=== PATIENT | female | born 1985 | race Caucasian/White ===

== ENCOUNTER 2022-10-19 02:33 | Emergency (ER) | payer MEDICAID, SELFPAY ==
[2022-10-19 02:33] VITALS: BP 113/77; PULSE 109; RESP 18; TEMP 35.6; O2SAT 100; BMI 24.3
--- NOTE | 2022-10-19 04:06 | EDS_ITS ---
HPI History of Present Illness Chief Complaint: Back Informant: patient Narrative Narrative: Patient is a 37-year-old female with history of anxiety and bipolar disorder presenting with concern of kidney infection. Patient states she has had some back pain for the past 3 days that radiates to her bilateral anterior legs. She has had an odor associated with urination. She denies any urgency, frequency or dysuria. Denies any abnormal vaginal bleeding or vaginal discharge. She also has some suprapubic lower abdominal pain. She states she had to walk here tonight and while walking her she had an episode of urinary incontinence. She denies any saddle anesthesia. She has a history of cancer, blood thinner use or history of IV drug use. Denies any fever or chills. No other complaints at this time. She states she has had bladder infections in the past but none was such associated back pain. [facility] Medical History Anxiety Bipolar disorder Depression Sleep paralysis Home Medications Abilify 10/19/22 [History Last Taken Unknown] BuSpar 10/19/22 [History Last Taken Unknown] cephalexin 500 mg capsule 500 mg PO Q6 #40 CAPSULES 10/19/22 [Rx Last Taken Unknown] phenazopyridine 200 mg tablet (Pyridium) 200 mg PO TID PRN pain 6 doses #6 tabs 10/19/22 [Rx Last Taken Unknown] trazodone 10/19/22 [History Last Taken Unknown] Allergy/AdvReac Type Severity Reaction Status Date / Time ketorolac [From Toradol] Allergy Anaphylaxis Verified 10/19/22 02:38 naproxen Allergy Anaphylaxis Verified 10/19/22 02:38 Social History Smoking Status: Current every day smoker tobacco type: cigarettes ROS ROS ED Constitutional Constitutional ED: Denies chills or fever(s) ENT ENT ED: Denies sore throat Cardiovascular Cardiovascular: Denies chest pain Respiratory/Chest Respiratory/Chest: Denies dyspnea Gastrointestinal Gastrointestinal: Reports abdominal pain and nausea; Denies constipation, diarrhea or vomiting Genitourinary Genitourinary ED: Reports other Details: Urinary incontinence x1 ; Denies dysuria, hematuria or urinary frequency Musculoskeletal Musculoskeletal: Reports back pain; Denies arthralgias or myalgias Integumentary Denies rash Neurologic Neurologic: Denies headache(s), paresthesias or weakness Psychiatric Psychiatric: Denies anxiety Hematologic/Lymphatic Hematologic/Lymphatic: Denies easy bleeding or easy bruising EXAM Physical Exam Const Vital Signs: 10/19/22 02:33 10/19/22 05:40 Temperature 96.1 F L Temperature Source Oral Pulse Rate 109 H 81 Respiratory Rate 18 14 Blood Pressure 113/77 Blood Pressure Mean 89 Pulse Ox 100 96 Oxygen Delivery Method Room Air Positive well nourished and well developed General Appearance ED: well developed and NAD HEENT Reports moist mucous membranes Eyes PERRL and EOMs intact bilaterally Neck supple Resp normal respiratory effort and clear to auscultation bilaterally Cardio regular rate, regular rhythm and no murmurs GI normal to inspection, nondistended, normoactive bowel sounds Palpation: tender suprapubic; Negative for guarding Back/Spine normal to inspection Back/Spine Narrative: Patient does not have midline tenderness. She has pretty diffuse lumbar and thoracic tenderness to palpation General Back: CVA tenderness bilateral Cervical Spine: Negative for cervical spine tenderness Thoracic Spine / Upper Back: paraspinal muscle tenderness Lumbar Spine / Lower Back: ROM limited and straight leg raise negative bilaterally Extremity normal to inspection General Extremety ED: Negative for edema General Extremity: Negative for edema Neuro oriented x3 and no sensory deficits noted Sensorium / Orientation: alert Motor Exam: strength 5/5 throughout Skin no rashes or lesions noted MDM MDM MDM Narrative Medical decision making narrative: Patient is evaluated for 3 days of urinary symptoms. She had episode of urinary incontinence tonight. Patient smells of foul urine. While she has back pain she does not have midline back pain, fever, saddle anesthesia or other findings concerning for cauda equina syndrome. She denies any history of IV drug use, cancer or coagulopathy. I suspect patient has UTI possibly developing pyelonephritis. Her vital signs are significant for mild tachycardia upon arrival however she is afebrile tachycardia improves with Tylenol in the ER. Urinalysis is highly consistent with urinary tract infection with positive nitrites, greater than 100 white blood cells and 3+ bacteria with no squamous epithelial cells. Culture sent. Given her associated back pain patient will be covered for pyelonephritis. Since she is not having systemic symptoms such as fever, nausea or vomiting I do not think she requires IV medications at this time and will be trialed on outpatient therapy. She is given first dose of Keflex in the ER and is also given a prescription of Pyridium for her urinary symptoms. Is counseled return precautions. Encouraged to take Tylenol as needed for pain. Discharged home in stable condition. Patient does not have any prior urine cultures to review as far as antibiotic sensitivity. Lab Data Attestation: I reviewed the patient's lab results. Labs: Laboratory Results - last 24 hr 10/19/22 04:25 Urine Color Yellow Urine Clarity Cloudy Urine pH 7.0 Ur Specific [place] 1.010 Urine Protein 30 H Urine Glucose (UA) Normal Urine Ketones Negative Urine Occult Blood 25 H Urine Nitrite Positive H Urine Bilirubin Negative Urine Urobilinogen 1 H Ur Leukocyte Esterase 500 H Urine RBC 0-5 SEEN Urine WBC >100 SEEN Ur Squamous Epith Cells 0 SEEN Amorphous Sediment 3+ Urine Bacteria 4+ Urine Mucus 0 SEEN Urine Test Negative Discharge Plan Triage Chief Complaint: Back ED Provider: Kizzy Grady Dx/Rx/DC Orders Clinical Impression: UTI (urinary tract infection), Low back pain Instructions: ED Pyelonephritis, Female (Adult), ED Cystitis Female Adult Prescriptions: New cephalexin 500 mg capsule 500 mg PO Q6 Qty: 40 0RF phenazopyridine [Pyridium] 200 mg tablet 200 mg PO TID PRN (Reason: pain) Qty: 6 0RF No Action Fausto carbajalzosumite Primary Care Provider: Madeleine Mohamud NP Referrals: Madeleine Mohamud NP, [employer] [Primary Care Provider] - Activity Restrictions/Additional Instructions: You have a UTI with possible early kidney infection. It is very important that you drink lots of fluids and take your entire course of antibiotics. Return to the ER if you develop progression of symptoms, nausea, fever especially after 2 days of antibiotics. You have been prescribed a medicine that will help with the urinary symptoms. You may also take Tylenol as needed for pain. Disposition Disposition: Home, Self Care Discharge Date/Time: 10/19/22 05:41
[2022-10-19 04:32] LABS: Mucous, Urine 0 SEEN /hpf (<or=2+); Squamous Epithelial Cells - UA 0 SEEN /hpf (5-10)
[2022-10-19 04:38] LABS: Color, Urine Yellow (Yellow); Glucose, Dipstick Normal (Normal); Ketone-Dipstick Negative (Negative); Leukocyte Esterase-Dipstick 500 /ul (Negative); Nitrite-Dipstick Positive (Negative); Occult Blood-Urine 25 /ul (Negative); Protein-Dipstick 30 mg/dl (Negative); Urine Bilirubin Dipstick Negative (Negative); Urine Clarity Cloudy (Clear); Urine Urobilinogen 1 mg/dl (Normal)
[2022-10-19 04:39] LABS: Internal QC Validated? YES +Cl - CLEAR BKGD; Pregnancy, Urine Negative Negative
[2022-10-19 04:43] LABS: Amorphous Sediment 3+; Bacteria 4+ /hpf (None Seen); Red Blood Cells-Urine 0-5 SEEN /hpf (0-5); White Blood Cells >100 SEEN /hpf (0-5)
[2022-10-19] MEDS: Acetaminophen 325 MG Tablet 650 MG PO (05:02)
[2022-10-19] MEDS: Cephalexin 250 MG Capsule 500 MG PO (05:32)
[2022-10-19] MEDS: Phenazopyridine 95 MG Tablet 190 MG PO (05:32)
[2022-10-19 05:40] VITALS: PULSE 81; RESP 14; O2SAT 96
== END 2022-10-19 05:41 | disposition home or self-care (01) ==
PROVIDERS: Emergency Provider Emergency Medicine; PCP Nurse Practitioner Family; Visit Provider Emergency Medicine
DX: N39.0 Urinary tract infection, site not specified (principal); F31.9 Bipolar disorder, unspecified; M54.50 Low back pain, unspecified; F41.9 Anxiety disorder, unspecified; R32 Unspecified urinary incontinence; F17.210 Nicotine dependence, cigarettes, uncomplicated; Z79.899 Other long term (current) drug therapy
CPT/HCPCS: 81001; 81025; 87086; 87088; 99284

== ENCOUNTER 2023-06-20 20:37 | Emergency (ER) | payer MEDICAID, SELFPAY ==
[2023-06-20 20:37] VITALS: BP 168/79; PULSE 74; RESP 16; TEMP 36.2; O2SAT 98; BMI 25.4
[2023-06-20] MEDS: 0.9% Normal Saline (1000mL) 1,000 ML 999 ML IV (22:17)
[2023-06-20] MEDS: Morphine 4 MG/ML Syringe IV (22:17)
[2023-06-20] MEDS: Ondansetron 4 MG/2 ML Vial IV (22:17)
[2023-06-20 22:18] LABS: Absolute Lymphocyte Count 1.92 X10^3/uL (0.83-4.51); Absolute Neutrophil Count 9.4 X10^3/uL (2.0-7.7); Basophil# 0.04 X10^3/uL; Basophil% 0.3 % (0-1); Eosinophil# 0.06 X10^3/uL; Eosinophils% 0.5 % (0-5); Hematocrit 43.7 % (37-47); Hemoglobin 14.5 g/dL (12.0-15.0); Lymphocyte # 1.92 X10^3/ul (0.83-4.51); Lymphocyte % 15.1 % (19-41); Mean Corp Hgb Conc 33.2 g/dL (32-36); Mean Corpuscular Hgb 33.4 pg (27.0-32.0); Mean Corpuscular Volume 100.7 fL (81-99); Mean Platelet Vol. 9.5 fl (6.2-12.0); Monocyte# 1.15 X10^3/uL; Monocyte% 9.1 % (0-10); NRBC Flagged by Analyzer 0 % (0-5); Neutrophil # 9.44 X10^3/uL (2.7-7.7); Neutrophil % 74.3 % (47-70); Platelet Count 414 K/mm3 (150-450); RBC Distribution Width CV 11.9 % (11.6-14.6); Red Blood Count 4.34 M/mm3 (4.2-5.4); White Blood Count 12.7 K/mm3 (4.4-11.0)
[2023-06-20 22:32] LABS: Prothrombin Time (Protime)PT. 13.4 SECONDS (11.7-14.9)
[2023-06-20 22:37] VITALS: BP 100/68; PULSE 74; RESP 16; O2SAT 97
[2023-06-20 22:38] LABS: AST(SGOT) 15 U/L (15-37); Alanine Aminotransfer ALT/SGPT 31 U/L (13-56); Albumin, Serum 3.7 g/dL (3.2-5.0); Alkaline Phosphatase 108 U/L (45-117); Anion Gap 4 (5-15); BUN 12 mg/dL (7-18); Bilirubin, Direct 0.13 mg/dL (0.00-0.30); Calcium,Total 8.7 mg/dL (8.5-10.1); Chloride 104 mmol/L (98-107); EST Glomerular Filtration Rate 86 mL/min (>60); Est Glom Filt Rate - Afr Amer 104 mL/min (>60); Estimated Creatinine Clearance 83.14 ml/min; Globulin 4.5 g/dL (2.2-4.2); Glucose 90 mg/dL (74-106); Lipase 35 U/L (13-75); Potassium 3.9 mmol/L (3.5-5.1); Protein, Total 8.2 g/dL (6.4-8.2); Sodium Level 137 mmol/L (136-145)
[2023-06-20 22:39] LABS: Partial Thromboplast Time 28.9 Seconds (24.1-36.2)
[2023-06-20 22:43] LABS: Mucous, Urine 0 SEEN /hpf (<or=2+)
[2023-06-20 23:08] LABS: Glucose, Dipstick Normal (Normal); Ketone-Dipstick Negative (Negative); Leukocyte Esterase-Dipstick 500 /ul (Negative); Nitrite-Dipstick Negative (Negative); Occult Blood-Urine 250 /ul (Negative); Protein-Dipstick 30 mg/dl (Negative); Specific Gravity, Urine 1.005 (1.002-1.030); Urine Bilirubin Dipstick Negative (Negative); Urine Clarity Sl. Cloudy (Clear); Urine Urobilinogen Normal (Normal)
[2023-06-20 23:17] LABS: Color, Urine SEE COMMENT BELOW (Yellow)
[2023-06-20 23:20] LABS: Bacteria 1+ /hpf (None Seen); Red Blood Cells-Urine 25-50 SEEN /hpf (0-5); Squamous Epithelial Cells - UA 0-5 SEEN /hpf (5-10); White Blood Cells 25-50 SEEN /hpf (0-5)
[2023-06-20 23:21] LABS: Internal QC Validated? YES +Cl - CLEAR BKGD; Pregnancy, Urine Negative Negative; Record Kit Lot#,Urine Preg HCG0000667200
[2023-06-21 00:29] VITALS: BP 100/70; PULSE 74; RESP 16; O2SAT 99
[2023-06-21] MEDS: Ondansetron 4 MG/2 ML Vial IV (00:30)
[2023-06-21] MEDS: fentaNYL 100 MCG/2 ML Ampul 50 MCG IV (00:30)
[2023-06-21] MEDS: Ceftriaxone 1 GM/50 ML BAG IV (00:48)
[2023-06-21] MEDS: 0.9% Normal Saline (1000mL) 1,000 ML 999 ML IV (00:52)
--- NOTE | 2023-06-21 00:59 | EDS_ITS ---
HPI History of Present Illness Chief Complaint: Abd Pain Informant: patient Narrative Narrative: Patient is a 38-year-old female who states she developed abdominal pain yesterday which is greatest around the left flank and left lower quadrant. She states that there has been no fevers or chills and she denies any vomiting but does report mild nausea. She states that she took Pepto-Bismol secondary to the symptoms and today had black/discolored stool which concerned her and therefore comes in for evaluation [facility] Medical History Anxiety Bipolar disorder Depression Sleep paralysis Home Medications Abilify 10/19/22 [History Last Taken Unknown] BuSpar 10/19/22 [History Last Taken Unknown] cephalexin 500 mg capsule 500 mg PO Q6 #40 CAPSULES 10/19/22 [Rx Last Taken Unknown] phenazopyridine 200 mg tablet (Pyridium) 200 mg PO TID PRN pain 6 doses #6 tabs 10/19/22 [Rx Last Taken Unknown] trazodone 10/19/22 [History Last Taken Unknown] oxycodone-acetaminophen 5 mg-325 mg tablet (Percocet) 1 tab PO Q6H PRN pain 3 days #12 tabs 06/21/23 [Rx Last Taken Unknown] sulfamethoxazole 800 mg-trimethoprim 160 mg tablet (Bactrim DS) 1 tab PO BID 10 days #20 tabs 06/21/23 [Rx Last Taken Unknown] Allergy/AdvReac Type Severity Reaction Status Date / Time ketorolac [From Toradol] Allergy Anaphylaxis Verified 06/20/23 20:39 naproxen Allergy Anaphylaxis Verified 06/20/23 20:39 Social History Smoking Status: Current every day smoker tobacco type: cigarettes ROS ROS ED Constitutional Constitutional ED: Denies chills or fever(s) ENT ENT ED: Denies sore throat Cardiovascular Cardiovascular: Denies chest pain Respiratory/Chest Respiratory/Chest: Denies cough or dyspnea Gastrointestinal Gastrointestinal: Reports abdominal pain and nausea; Denies diarrhea or vomiting Genitourinary Genitourinary ED: Denies dysuria Musculoskeletal Musculoskeletal: Reports back pain; Denies myalgias Integumentary Denies rash Neurologic Neurologic: Denies headache(s) Hematologic/Lymphatic Hematologic/Lymphatic: Denies easy bleeding or easy bruising EXAM Physical Exam Const Vital Signs: 06/20/23 20:37 06/20/23 22:37 06/21/23 00:29 Temperature 97.2 F L Temperature Source Temporal Pulse Rate 74 74 74 Respiratory Rate 16 16 16 Blood Pressure 168/79 H 100/68 100/70 Blood Pressure Mean 108 78 80 Pulse Ox 98 97 99 Oxygen Delivery Method Room Air Room Air Room Air 06/21/23 01:43 Temperature Temperature Source Pulse Rate 77 Respiratory Rate 14 Blood Pressure 98/75 Blood Pressure Mean Pulse Ox 100 Oxygen Delivery Method Positive well nourished and well developed General Appearance ED: well developed HEENT Reports moist mucous membranes HEENT Narrative: No signs of infection noted in the posterior pharynx No airway edema or compromise Eyes PERRL and EOMs intact bilaterally General Eye ED: Negative for scleral icterus Neck supple Resp normal respiratory effort and clear to auscultation bilaterally Cardio regular rate and regular rhythm Rate: other Other Details: Radial and carotid pulses are equal and symmetric GI non-distended GI Narrative: Abdomen is soft and nondistended with normal active bowel sounds. Patient has pain with palpation diffusely but greatest in the left lower quadrant without voluntary guarding or rigidity. No pulsatile mass Auscultation: normoactive bowel sounds Palpation: soft Back/Spine Back/Spine Narrative: Positive left CVA pain noted Extremity normal to inspection Neuro oriented x3, CN's II-XII intact bilaterally and no sensory deficits noted Sensorium / Orientation: alert Motor Exam: strength 5/5 throughout Psych mental status grossly normal Skin no rashes or lesions noted General Skin Exam: Negative for jaundice MDM MDM MDM Narrative Medical decision making narrative: Patient presented to the ER afebrile with a soft nonsurgical abdomen. She reported pain in the left lower quadrant and left flank and differential diagnosis is for kidney stone versus pyelonephritis versus diverticulitis versus colitis versus ovarian cyst. Basic labs were obtained and show leukocytosis of 12.7 but otherwise no clinically significant finding. Urine sample showed signs of infection and blood in with potential for kidney stone a CT was obtained. CT revealed no acute stone or signs of intestinal infection but did document a 3 cm ovarian cyst. This correlates with the location of her left lower quadrant abdominal pain. At this time she is not showing changes concerning for urosepsis or acute kidney injury and therefore she can be placed on antibiotics regarding the urinary tract infection and as her pain is controlled she is otherwise safe for discharge History & Record Review Discussion w/independent historian: Patient Lab Data Attestation: I reviewed the patient's lab results. Labs: Laboratory Results - last 24 hr 06/20/23 06/20/23 22:10 22:30 WBC 12.7 H RBC 4.34 Hgb 14.5 Hct 43.7 MCV 100.7 H MCH 33.4 H MCHC 33.2 RDW Std Deviation 44.0 H RDW Coeff of Pooanm 11.9 Plt Count 414 MPV 9.5 Immature Gran % (Auto) 0.700 Neut % (Auto) 74.3 H Lymph % (Auto) 15.[address] [place] % (Auto) 9.1 Eos % (Auto) 0.5 Baso % (Auto) 0.3 Absolute Neuts (auto) 9.4 H Absolute Lymphs (auto) 1.92 Nucleated RBC % 0 PT 13.4 INR 1.0 APTT 28.9 Sodium 137 Potassium 3.9 Chloride 104 Carbon Dioxide 29.0 Anion Gap 4 L BUN 12 Creatinine 0.80 Estim Creat Clear Calc 83.14 Est GFR (MDRD) Af Amer 104 Est GFR (MDRD) Non-Af 86 BUN/Creatinine Ratio 15.0 Glucose 90 Calcium 8.7 Total Bilirubin 0.20 Direct Bilirubin 0.13 AST 15 ALT 31 Alkaline Phosphatase 108 Total Protein 8.2 Albumin 3.7 Globulin 4.5 H Lipase 35 Urine Color SEE COMMENT BELOW Urine Clarity Sl. Cloudy Urine pH 7.0 Ur Specific [place] 1.005 Urine Protein 30 H Urine Glucose (UA) Normal Urine Ketones Negative Urine Occult Blood 250 H Urine Nitrite Negative Urine Bilirubin Negative Urine Urobilinogen Normal Ur Leukocyte Esterase 500 H Urine RBC 25-50 SEEN Urine WBC 25-50 SEEN Ur Squamous Epith Cells 0-5 SEEN Urine Bacteria 1+ Urine Mucus 0 SEEN Urine Test Negative Radiography Diagnostic Testing: Clinical Impression(s) from Imaging Studies Abdomen/Pelvis CT 06/21/23 23:36 IMPRESSION: Small 3 cm left adnexal cyst with no significant free pelvic fluid. Consider follow-up pelvic ultrasound in 6 or 10 weeks to reassess. Electronically Signed: Jacques Vaughan MD at 0:43 EDT , Discharge Plan Triage Chief Complaint: Abd Pain ED Provider: Maurice Leon Dx/Rx/DC Orders Clinical Impression: Pyelonephritis, Cyst of left ovary Instructions: Ovarian Cysts, ED Pyelonephritis, Female (Adult) Prescriptions: New sulfamethoxazole-trimethoprim [Bactrim DS] 800-160 mg tablet 1 tab PO BID 10 Days Qty: 20 0RF oxycodone-acetaminophen [Percocet] 5-325 mg tablet 1 tab PO Q6H PRN (Reason: pain) 3 Days Qty: 12 0RF No Action Abilify BuSpar trazodone cephalexin 500 mg capsule 500 mg PO Q6 Qty: 40 0RF phenazopyridine [Pyridium] 200 mg tablet 200 mg PO TID PRN (Reason: pain) Qty: 6 0RF Primary Care Provider: Care Physician,No Primary Referrals: Luz Elena Landaverde MD [Med Staff - Active Staff] - Care Physician,No Primary [Primary Care Provider] - Activity Restrictions/Additional Instructions: Please take your medication as directed to help resolve your UTI/kidney infection. Because of your left ovarian cyst follow-up with [employer] to discuss repeat evaluation and return to the ER should you have any further concerns or worsening of symptoms Disposition Disposition: Home, Self Care Discharge Date/Time: 06/21/23 01:47
[2023-06-21 01:43] VITALS: BP 98/75; PULSE 77; RESP 14; O2SAT 100
--- NOTE | 2023-06-21 23:36 | CT_ITS ---
INDICATION: Abdominal pain, back pain, UTI, black stools today EXAMINATION: CT Abdomen And Pelvis W/ Contrast Injection TECHNIQUE: Helically acquired images were obtained of the abdomen and pelvis following IV contrast. 2-D reconstructions reviewed. A radiation dose optimization technique was used for this scan. IV Contrast dosage and agent: 100 cc [id number] Oral contrast: None. COMPARISON: None. FINDINGS: LOWER CHEST: No acute findings within the imaged lung bases. Heart size within normal limits. LIVER: Mild focal fat within left lobe adjacent to falciform ligament. No concerning lesion. GALLBLADDER AND BILIARY TREE: Status post cholecystectomy. No significant biliary ductal dilation. PANCREAS: No discrete mass or peripancreatic edema. SPLEEN: Normal size without concerning lesion. ADRENAL GLANDS: Unremarkable. KIDNEYS AND URETERS: Normal renal size and position. No perinephric edema or hydronephrosis. No concerning lesion. Subcentimeter simple appearing cyst within lower pole of left kidney requiring no additional follow-up. PERITONEUM: No significant free fluid. No peritoneal free air detected. RETROPERITONEUM: No retroperitoneal mass or pathologic fluid collection. BOWEL: Status post appendectomy. No bowel obstruction or significant bowel thickening. No focal inflammatory change. LYMPH NODES: No enlarged mesenteric or retroperitoneal lymph nodes. VESSELS: No acute findings. No abdominal aortic aneurysm. URINARY BLADDER: Unremarkable as visualized. REPRODUCTIVE ORGANS: Thin-walled, low-attenuation 3 cm left adnexal cyst. ABDOMINAL WALL: No acute findings or significant hernia defect. BONES: Intact with no suspicious osseous lesion. CT/Abdomen/Pelvis W IV Cont ONLY IMPRESSION: Small 3 cm left adnexal cyst with no significant free pelvic fluid. Consider follow-up pelvic ultrasound in 6 or 10 weeks to reassess. Electronically Signed: Jacques Vaughan MD at 0:43 EDT ,
== END 2023-06-21 01:47 | disposition home or self-care (01) ==
PROVIDERS: Emergency Provider Emergency Medicine; Visit Provider Emergency Medicine
DX: N12 Tubulo-interstitial nephritis, not specified as acute or chronic (principal); F31.9 Bipolar disorder, unspecified; N83.202 Unspecified ovarian cyst, left side; F17.210 Nicotine dependence, cigarettes, uncomplicated; F41.9 Anxiety disorder, unspecified
CPT/HCPCS: 74177; 80048; 80076; 81001; 81025; 83690; 85025; 85610; 85730; 87086; 87088; 96361; 96365; 96375; 96376; 99285; Q9967; A4216; J2405

== ENCOUNTER 2023-06-26 02:25 | Emergency (ER) | payer MEDICAID, SELFPAY ==
[2023-06-26 02:31] VITALS: BP 115/86; PULSE 104; RESP 18; TEMP 36.6; O2SAT 99; BMI 25.9
--- NOTE | 2023-06-26 02:47 | RAD_ITS ---
INDICATION: Weakness, slight cough and dyspnea EXAMINATION/TECHNIQUE: X-RAY - XR Chest 2 Views COMPARISON: No relevant prior comparison study available FINDINGS: LINES/DEVICES: None. LUNGS: No consolidation, edema or effusion. No pneumothorax. MEDIASTINUM AND CARDIOVASCULAR STRUCTURES: Cardiac silhouette not enlarged. Central airways and mediastinal contour are unremarkable. BONES AND SOFT TISSUES: Unremarkable. RAD/Chest PA and Lateral IMPRESSION: No radiographic evidence of acute cardiopulmonary disease. Electronically Signed: Darren Wells MD at 3:19 EDT ,
[2023-06-26 02:59] LABS: Bacteria 0 SEEN /hpf (None Seen); Mucous, Urine 0 SEEN /hpf (<or=2+); Red Blood Cells-Urine 0 SEEN /hpf (0-5); Squamous Epithelial Cells - UA 0 SEEN /hpf (5-10); White Blood Cells 0 SEEN /hpf (0-5)
[2023-06-26] MEDS: 0.9% Normal Saline (1000mL) 1,000 ML 150 ML IV (03:06)
[2023-06-26 03:11] LABS: Absolute Lymphocyte Count 2.09 X10^3/uL (0.83-4.51); Basophil# 0.05 X10^3/uL; Basophil% 0.5 % (0-1); Eosinophil# 0.07 X10^3/uL; Eosinophils% 0.7 % (0-5); Hemoglobin 13.6 g/dL (12.0-15.0); Lymphocyte # 2.09 X10^3/ul (0.83-4.51); Lymphocyte % 19.9 % (19-41); Mean Corpuscular Hgb 33.2 pg (27.0-32.0); Mean Corpuscular Volume 97.6 fL (81-99); Mean Platelet Vol. 9.5 fl (6.2-12.0); Monocyte# 1.23 X10^3/uL; Monocyte% 11.7 % (0-10); NRBC Flagged by Analyzer 0 % (0-5); Neutrophil # 7.02 X10^3/uL (2.7-7.7); Neutrophil % 66.6 % (47-70); Platelet Count 406 K/mm3 (150-450); White Blood Count 10.5 K/mm3 (4.4-11.0)
[2023-06-26 03:22] LABS: Color, Urine Yellow (Yellow); Glucose, Dipstick Normal (Normal); Ketone-Dipstick 5 mg/dl (Negative); Leukocyte Esterase-Dipstick Negative /ul (Negative); Nitrite-Dipstick Negative (Negative); Occult Blood-Urine Negative /ul (Negative); Protein-Dipstick Negative (Negative); Urine Bilirubin Dipstick Negative (Negative); Urine Clarity Clear (Clear); Urine Urobilinogen Normal (Normal)
--- NOTE | 2023-06-26 03:54 | EX.ED.DYSGE1 ---
HPI History of Present Illness Chief Complaint: Abd Pain Detail of Chief Complaint: Lower quadrant/adnexal pain Informant: patient Onset/Context/Timing Onset: Today Context: Sudden Onset Timing: Continuous Quality: Pain Location: Left adnexal region Current Severity: Severe Maximum Severity: Severe Worsened by: Nothing Relieved by: Nothing Associated Symptoms Associated Symptoms: Nausea Narrative Narrative: Patient is a 38-year-old woman who was seen on June 21 for abdominal pain. Her work-up revealed a 3.0 cm left ovarian cyst. This was a simple cyst. She presents now because of increased pain. She states the pain never went away. She does report nausea without vomiting or diarrhea. She denies dysuria, frequency, urgency or hematuria. UA revealed pyuria and bacteriuria. Culture revealed a mixed specimen most likely contaminant. Since she has no symptoms. She denies flank pain. He has been 3 times. She has had no complications with those 3 pregnancies. There is no history of trauma. She denies fever or chills. She denies night sweats. Prior similar symptoms: Yes Recent Illness/Hospitalization: Yes [facility] Medical History Anxiety Bipolar disorder Depression Sleep paralysis Home Medications Abilify 10/19/22 [History Last Taken Unknown] BuSpar 10/19/22 [History Last Taken Unknown] trazodone 10/19/22 [History Last Taken Unknown] doxycycline monohydrate 100 mg capsule 100 mg PO BID #20 CAPSULES 06/26/23 [Rx Last Taken Unknown] hydrocodone-acetaminophen 5-325mg 5mg-325mg 1 tab PO Q6H PRN PRN Pain 2 days #8 TABLETS 06/26/23 [Rx Last Taken Unknown] Allergy/AdvReac Type Severity Reaction Status Date / Time ketorolac [From Toradol] Allergy Anaphylaxis Verified 06/26/23 02:36 naproxen Allergy Anaphylaxis Verified 06/26/23 02:36 Social History (Updated 06/26/23 @ 03:[address] Ronal Bernard MD) household members: children Smoking Status: Current every day smoker tobacco type: cigarettes alcohol intake: current ROS ROS ED Constitutional Constitutional ED: Denies chills, fever(s), subjective, sweats or weight loss Eyes Eyes: Denies blurry vision, change in vision or diplopia ENT ENT ED: Denies ear pain, rhinorrhea or sore throat Cardiovascular Cardiovascular: Denies chest pain, orthopnea, palpitations, paroxysmal nocturnal dyspnea or racing heartbeat Respiratory/Chest Respiratory/Chest: Denies cough, dyspnea, dyspnea on exertion, orthopnea or paroxysmal nocturnal dyspnea Gastrointestinal Gastrointestinal: Reports abdominal pain and nausea; Denies constipation, diarrhea, melena or vomiting Genitourinary Genitourinary ED: Denies dysuria, hematuria or urinary frequency Musculoskeletal Musculoskeletal: Denies arthralgias, back pain or myalgias Integumentary Denies rash Psychiatric Psychiatric: Reports anxiety Endocrine Endocrinology: Denies cold intolerance or heat intolerance Hematologic/Lymphatic Hematologic/Lymphatic: Reports systems reviewed and no addt'l complaints, except as documented EXAM Physical Exam Const Vital Signs: 06/26/23 02:31 06/26/23 04:56 Temperature 97.8 F Temperature Source Temporal Pulse Rate 104 H 66 Respiratory Rate 18 16 Blood Pressure 115/86 H Blood Pressure Mean 95 Pulse Ox 99 Positive well nourished and well developed Constitutional Narrative: Patient is crying. General Appearance ED: well developed; Negative for cyanotic, diaphoretic or pallor HEENT Reports moist mucous membranes HEENT Narrative: Is atraumatic and normocephalic. Ears are normal. Nares are patent. Posterior pharynx is normal. Eyes PERRL and EOMs intact bilaterally General Eye ED: Negative for pale conjunctiva or scleral icterus Neck no lymphadenopathy, supple and no JVD Resp normal respiratory effort and clear to auscultation bilaterally Cardio regular rate, regular rhythm, S1 normal heart sound, S2 normal heart sound and no murmurs GI normal to inspection, nondistended, normoactive bowel sounds and no masses; Negative for non-tender or hepatosplenomegaly Auscultation: hypoactive bowel sounds Palpation: soft and tender LLQ Narrative: External genitalia normal. Vaginal mucosa normal. Cervix is pink. There is a whitish frothy colored discharge noted. On bimanual exam there is no discomfort with pressure against the bladder. She complained of pain with cervical motion. She did not have a chandelier sign. She had minimal discomfort left adnexa. There is no appreciable mass which may be difficult because of body habitus. Right adnexa was unremarkable. Of note patient had a simple 3.0 cm ovarian cyst noted on the left when she was seen a couple days ago. She had a CAT scan at that time. Patient states she has not had intercourse in a week. She states she did have pain when she had intercourse. The person is not a new partner. Because of the abnormal discharge will obtain urine for GC and chlamydia. We will treat with 10 days of doxycycline which will cover both chlamydia and GC as well as anaerobes. Back/Spine no CVA tenderness Thoracic Spine / Upper Back: Negative for thoracic spinal tenderness Lumbar Spine / Lower Back: Negative for lumbar spinal tenderness Extremity normal to inspection General Extremety ED: Negative for edema or tenderness General Extremity: Negative for edema Neuro oriented x3, CN's II-XII intact bilaterally and no sensory deficits noted Sensorium / Orientation: alert Motor Exam: strength 5/5 throughout Psych Mood & Affect: depressed and tearful Skin no rashes or lesions noted, no wounds and skin turgor normal General Skin Exam: Negative for jaundice or pallor MDM MDM MDM Narrative Medical decision making narrative: Diagnosis would be pain of unknown etiology, ruptured ovarian cyst, torsion. Will need to perform pelvic exam. Patient had labs inadvertently submitted that should have gone for another patient. Patient did not need a chest x-ray, EKG or troponin level. Need a pelvic exam. She did receive IV Toradol for her pain. Most recent ER visit report was read. She had extensive work-up. As previously documented she was found to have a simple left ovarian cyst that measured 3.0 cm. This is not a common size detorsed. The most common size that results in torsion is 4 to 6 cm. Please review documentation under the portion of the medical record. Lab Data Attestation: I reviewed the patient's lab results. Lab results narrative: BC is normal. UA is normal. Labs: Laboratory Results - last 24 hr 06/26/23 06/26/23 02:54 03:00 WBC 10.5 RBC 4.10 L Hgb 13.6 Hct 40.0 MCV 97.6 MCH 33.2 H MCHC 34.0 RDW Std Deviation 43.0 RDW Coeff of Poonam 12.0 Plt Count 406 MPV 9.5 Immature Gran % (Auto) 0.600 Neut % (Auto) 66.6 Lymph % (Auto) 19.9 [place] % (Auto) 11.7 H Eos % (Auto) 0.7 Baso % (Auto) 0.5 Absolute Neuts (auto) 7.0 Absolute Lymphs (auto) 2.09 Nucleated RBC % 0 Sodium 139 Potassium 3.3 L Chloride 107 Carbon Dioxide 26.0 Anion Gap 6 BUN 14 Creatinine 0.76 Estim Creat Clear Calc 87.52 Est GFR (MDRD) Af Amer 110 Est GFR (MDRD) Non-Af 91 BUN/Creatinine Ratio 18.5 Glucose 98 Calcium 8.8 Troponin I High Sens 5 Urine Color Yellow Urine Clarity Clear Urine pH 6.0 Ur Specific [place] 1.010 Urine Protein Negative Urine Glucose (UA) Normal Urine Ketones 5 H Urine Occult Blood Negative Urine Nitrite Negative Urine Bilirubin Negative Urine Urobilinogen Normal Ur Leukocyte Esterase Negative Urine RBC 0 SEEN Urine WBC 0 SEEN Ur Squamous Epith Cells 0 SEEN Urine Bacteria 0 SEEN Urine Mucus 0 SEEN Radiography Diagnostic Testing: Clinical Impression(s) from Imaging Studies Chest X-Ray 06/26/23 02:47 IMPRESSION: No radiographic evidence of acute cardiopulmonary disease. Electronically Signed: Darren Wells MD at 3:19 EDT Reading Location ID and State: [facility] / [place] Tel , Service support , X-ray was intermittently ordered. I did not interpreted because it was not meant for the patient. Discharge Plan Triage Chief Complaint: Abd Pain ED Provider: Ronal Bernard Dx/Rx/DC Orders Clinical Impression: Vaginal discharge, Dyspareunia in female, Cyst of left ovary Instructions: ED Ovarian Cyst Prescriptions: New hydrocodone-acetaminophen [hydrocodone-acetaminophen] 5-325 mg tablet 1 tab PO Q6H PRN PRN (Reason: Pain) 2 Days Qty: 8 0RF doxycycline monohydrate 100 mg capsule 100 mg PO BID Qty: 20 0RF No Action Abilify BuSpar trazodone Primary Care Provider: Care Physician,No Primary Referrals: Care Physician,No Primary [Primary Care Provider] - Doctor,Your [Non-Staff] - 1 Week if not improving Activity Restrictions/Additional Instructions: If you have a temperature greater than 100, shaking chills, return to the emergency department. If you have unbearable pain contact your doctor or return to the emergency department Disposition Disposition: Home, Self Care
[2023-06-26 04:12] LABS: Anion Gap 6 (5-15); BUN 14 mg/dL (7-18); BUN/Creat Ratio 18.5 RATIO (10-20); Calcium,Total 8.8 mg/dL (8.5-10.1); Chloride 107 mmol/L (98-107); Creatinine, Serum 0.76 mg/dL (0.55-1.02); EST Glomerular Filtration Rate 91 mL/min (>60); Est Glom Filt Rate - Afr Amer 110 mL/min (>60); Estimated Creatinine Clearance 87.52 ml/min; Glucose 98 mg/dL (74-106); Potassium 3.3 mmol/L (3.5-5.1); Sodium Level 139 mmol/L (136-145); Troponin-I HS (w/2H Reflex) 5 pg/mL (3.0-54.0)
[2023-06-26 04:56] VITALS: PULSE 66; RESP 16
[2023-06-26 05:05] LABS: Reflex Troponin-HS? (from REC) Y
[2023-06-26 07:23] VITALS: BP 114/78; PULSE 87; RESP 16; O2SAT 99
[2023-06-26] MEDS: Doxycycline 100 MG CAPSULE PO (07:36)
== END 2023-06-26 07:40 | disposition home or self-care (01) ==
PROVIDERS: Emergency Provider Emergency Medicine; Visit Provider Emergency Medicine
DX: N89.8 Other specified noninflammatory disorders of vagina (principal); F31.9 Bipolar disorder, unspecified; N83.202 Unspecified ovarian cyst, left side; F17.210 Nicotine dependence, cigarettes, uncomplicated; N94.10 Unspecified dyspareunia; F41.9 Anxiety disorder, unspecified; Z79.899 Other long term (current) drug therapy
CPT/HCPCS: 71046; 80048; 81001; 84484; 85025; 87491; 87591; 93005; 96360; 96361; 99284; J7030; A4216

== ENCOUNTER 2023-07-27 21:39 | Emergency (ER) | payer MEDICAID, SELFPAY ==
[2023-07-27 21:40] VITALS: BP 92/59; PULSE 89; RESP 18; TEMP 36.8; O2SAT 100; BMI 24.9
[2023-07-27 22:14] LABS: Absolute Lymphocyte Count 2.38 X10^3/uL (0.83-4.51); Absolute Neutrophil Count 11.9 X10^3/uL (2.0-7.7); Basophil# 0.07 X10^3/uL; Basophil% 0.4 % (0-1); Eosinophil# 0.09 X10^3/uL; Eosinophils% 0.6 % (0-5); Hematocrit 42.4 % (37-47); Hemoglobin 14.1 g/dL (12.0-15.0); Lymphocyte # 2.38 X10^3/ul (0.83-4.51); Lymphocyte % 14.9 % (19-41); Mean Corp Hgb Conc 33.3 g/dL (32-36); Mean Corpuscular Hgb 33.3 pg (27.0-32.0); Mean Corpuscular Volume 100.2 fL (81-99); Mean Platelet Vol. 9.9 fl (6.2-12.0); Monocyte# 1.37 X10^3/uL; Monocyte% 8.6 % (0-10); NRBC Flagged by Analyzer 0 % (0-5); Neutrophil # 11.85 X10^3/uL (2.7-7.7); Neutrophil % 74.3 % (47-70); Platelet Count 325 K/mm3 (150-450); RBC Distribution Width CV 12.3 % (11.6-14.6); RBC Distribution Width SD 45.2 fl (35.1-43.9); Red Blood Count 4.23 M/mm3 (4.2-5.4)
[2023-07-27 22:15] LABS: Bacteria 0 SEEN /hpf (None Seen); Mucous, Urine 0 SEEN /hpf (<or=2+)
[2023-07-27 22:16] LABS: Color, Urine Yellow (Yellow); Glucose, Dipstick Normal (Normal); Ketone-Dipstick Negative (Negative); Leukocyte Esterase-Dipstick 100 /ul (Negative); Nitrite-Dipstick Negative (Negative); Occult Blood-Urine 250 /ul (Negative); Protein-Dipstick 15 mg/dl (Negative); Specific Gravity, Urine 1.015 (1.002-1.030); Urine Bilirubin Dipstick Negative (Negative); Urine Clarity Clear (Clear); Urine Urobilinogen Normal (Normal)
[2023-07-27 22:27] LABS: Red Blood Cells-Urine 10-25 SEEN /hpf (0-5)
[2023-07-27 22:28] LABS: Squamous Epithelial Cells - UA 5-10 SEEN /hpf (5-10); White Blood Cells 0-5 SEEN /hpf (0-5)
[2023-07-27 22:32] LABS: Internal QC Validated? YES +Cl - CLEAR BKGD; Pregnancy, Serum, hCG Quali. NEGATIVE Negative
[2023-07-27] MEDS: Morphine 4 MG/ML Syringe IV (22:38)
[2023-07-27] MEDS: Ondansetron 4 MG/2 ML Vial IV (22:38)
[2023-07-27] MEDS: 0.9% Normal Saline (1000mL) 1,000 ML 999 ML IV (22:38)
[2023-07-27 23:22] LABS: Lactic Acid 0.8 mmol/L (0.4-1.9)
[2023-07-27 23:24] LABS: AST(SGOT) 20 U/L (15-37); Alanine Aminotransfer ALT/SGPT 36 U/L (13-56); Albumin, Serum 3.7 g/dL (3.2-5.0); Alkaline Phosphatase 96 U/L (45-117); Anion Gap 5 (5-15); BUN 13 mg/dL (7-18); BUN/Creat Ratio 15.9 RATIO (10-20); Chloride 108 mmol/L (98-107); Creatinine, Serum 0.82 mg/dL (0.55-1.02); EST Glomerular Filtration Rate 83 mL/min (>60); Est Glom Filt Rate - Afr Amer 101 mL/min (>60); Estimated Creatinine Clearance 81.11 ml/min; Globulin 3.7 g/dL (2.2-4.2); Glucose 93 mg/dL (74-106); Potassium 3.8 mmol/L (3.5-5.1); Protein, Total 7.4 g/dL (6.4-8.2); Sodium Level 142 mmol/L (136-145)
--- NOTE | 2023-07-27 23:35 | CT_ITS ---
EXAM: CT Abdomen And Pelvis W/ Contrast Injection HISTORY: abd pain LLQ PAIN WITH HEMOPTYSIS, HX OVARIAN CYST TECHNIQUE: Routine protocol CT abdomen pelvis. IV Contrast: IV 100mL Isovue-370 . Oral Contrast: without. Sagittal and coronal images were reconstructed. RADIATION DOSAGE (If Supplied By Facility): CTDIvol = ( 14.74 ) mGy, DLP = ( 840.72 ) mGycm Individualized dose optimization techniques were used for this CT. COMPARISON: CT abdomen pelvis 06/21/2023. LIMITATIONS: None. FINDINGS: LOWER CHEST: Groundglass opacities dependent lung bases most likely atelectasis. LIVER: Unremarkable. GALLBLADDER/BILE DUCTS: Gallbladder surgically absent. PANCREAS: Unremarkable. SPLEEN: Unremarkable. ADRENAL GLANDS: Unremarkable. KIDNEYS / URETERS: Unremarkable. BOWEL / MESENTERY: Unremarkable. No bowel obstruction. APPENDIX: Not identified. Surgically absent. PERITONEUM: No free air. No free fluid. VESSELS: Abdominal aorta is normal caliber. RETROPERITONEUM: Unremarkable. REPRODUCTIVE ORGANS: There are a few small low attenuation structures in the left ovary, largest is approximately 2.8 cm which is slightly decreased size compared to the prior. Also a small 2 cm structure in the right ovary.. BLADDER: Unremarkable. ABDOMINAL WALL: Unremarkable. BONES: No acute abnormality. OTHER: None. CT/Abdomen/Pelvis W IV Cont ONLY IMPRESSION: Bilateral ovarian cysts or follicles more numerous on the left, largest is less than 3 cm. Pelvic ultrasound correlation may be helpful if clinically indicated. No other acute findings. Electronically Signed: Devorah Trujillo MD at 0:13 EDT ,
[2023-07-27 23:46] LABS: Lipase 74 U/L (13-75)
--- NOTE | 2023-07-28 00:34 | EX.ED.DYSGE1 ---
HPI History of Present Illness Chief Complaint: Abd Pain Informant: patient Narrative Narrative: Patient is a 38-year-old female with past medical history of anxiety and bipolar disorder. She states that today she developed generalized abdominal discomfort with bouts of vomiting. She states that her emesis appeared bloody in nature. She denies any history of bleeding disorder or blood thinner use. She states she does not take Motrin Advil or Aleve as she has an allergy to NSAIDs and she does not drink alcohol or excessive caffeine. She denies any history of ulcers. She denies any history of bleeding disorder or blood thinner use. She does admit to smoking. At this time based on her pain and reports of hematemesis she comes in for evaluation [facility] Medical History Anxiety Bipolar disorder Depression Sleep paralysis Home Medications Abilify 10/19/22 [History Last Taken Unknown] BuSpar 10/19/22 [History Last Taken Unknown] trazodone 10/19/22 [History Last Taken Unknown] doxycycline monohydrate 100 mg capsule 100 mg PO BID #20 CAPSULES 06/26/23 [Rx Last Taken Unknown] hydrocodone-acetaminophen 5-325mg 5mg-325mg 1 tab PO Q6H PRN PRN Pain 2 days #8 TABLETS 06/26/23 [Rx Last Taken Unknown] ondansetron 4 mg disintegrating tablet 4 mg PO TID PRN nausea and vomiting #21 tabs 07/28/23 [Rx Last Taken Unknown] oxycodone-acetaminophen 5 mg-325 mg tablet (Percocet) 1 tab PO Q6H PRN pain 3 days #12 tabs 07/28/23 [Rx Last Taken Unknown] Allergy/AdvReac Type Severity Reaction Status Date / Time ketorolac [From Toradol] Allergy Anaphylaxis Verified 07/27/23 21:42 naproxen Allergy Anaphylaxis Verified 07/27/23 21:42 Social History household members: children Smoking Status: Current every day smoker tobacco type: cigarettes alcohol intake: current ROS ROS ED Constitutional Constitutional ED: Denies chills or fever(s) ENT ENT ED: Denies sore throat Cardiovascular Cardiovascular: Denies chest pain Respiratory/Chest Respiratory/Chest: Denies cough or dyspnea Gastrointestinal Gastrointestinal: Reports abdominal pain, nausea and vomiting; Denies diarrhea or melena Genitourinary Genitourinary ED: Denies dysuria Musculoskeletal Musculoskeletal: Denies myalgias Integumentary Denies rash Neurologic Neurologic: Denies headache(s) Hematologic/Lymphatic Hematologic/Lymphatic: Denies easy bleeding or easy bruising EXAM Physical Exam Const Vital Signs: 07/27/23 21:40 Temperature 98.3 F Temperature Source Temporal Pulse Rate 89 Respiratory Rate 18 Blood Pressure 92/59 L Blood Pressure Mean 70 Pulse Ox 100 Oxygen Delivery Method Room Air Positive well nourished and well developed General Appearance ED: well developed; Negative for pallor HEENT Reports moist mucous membranes HEENT Narrative: No dried blood or active bleeding noted in the posterior pharynx No signs of infection noted Eyes PERRL and EOMs intact bilaterally General Eye ED: Negative for pale conjunctiva Neck supple Neck Narrative: No nuchal rigidity or meningeal signs present No crepitance in the anterior neck and no pain with external manipulation of the thyroid cartilage Resp normal respiratory effort and clear to auscultation bilaterally Cardio regular rate and regular rhythm Rate: other Other Details: Heart is regular rate and rhythm without murmurs rubs or gallops Radial and carotid pulses are equal and symmetric GI non-distended GI Narrative: Abdomen is soft and nondistended with hypoactive bowel sounds. Patient has mild diffuse pain greatest in the left lower quadrant without voluntary guarding or rigidity. No pulsatile mass or fluid wave Auscultation: hypoactive bowel sounds Palpation: soft Narrative: External rectal exam shows no hemorrhoid or anal fissure. Rectal tone is normal there are no internal masses palpated and stool is brown in color and Hemoccult negative. Extremity normal to inspection Neuro oriented x3 and CN's II-XII intact bilaterally Sensorium / Orientation: alert Psych mental status grossly normal Skin no rashes or lesions noted General Skin Exam: Negative for jaundice or pallor MDM MDM MDM Narrative Medical decision making narrative: Patient presented to the ER with a soft nonsurgical abdomen. With her report of generalized pain and hematemesis I did elect to perform basic laboratory studies. Patient's white count is elevated at 16 but lactic acid is normal she does not have signs of acute kidney injury or electrolyte derangement her hemoglobin and platelets are normal and her BUN is also normal going against a upper GI bleed. However based on the elevated white count I did elect perform a CT scan with IV contrast. This showed a left ovarian cyst similar nature/slightly smaller to the previous CAT scan from the end of May. The patient's had no bouts of vomiting while in the ER. Her vitals are stable. Therefore at this time as patient is not anemic showing acute kidney injury or signs of internal bleeding there is no need for further work-up and she is otherwise safe for discharge. History & Record Review Discussion w/independent historian: Patient Lab Data Attestation: I reviewed the patient's lab results. Labs: Laboratory Results - last 24 hr 07/27/23 07/27/23 07/27/23 21:58 22:06 22:45 WBC 16.0 H RBC 4.23 Hgb 14.1 Hct 42.4 MCV 100.2 H MCH 33.3 H MCHC 33.3 RDW Std Deviation 45.2 H RDW Coeff of [place]am 12.3 Plt Count 325 MPV 9.9 Immature Gran % (Auto) 1.200 H Neut % (Auto) 74.3 H Lymph % (Auto) 14.9 L [place] % (Auto) 8.6 Eos % (Auto) 0.6 Baso % (Auto) 0.4 Absolute Neuts (auto) 11.9 H Absolute Lymphs (auto) 2.38 Nucleated RBC % 0 Sodium 142 Potassium 3.8 Chloride 108 H Carbon Dioxide 29.0 Anion Gap 5 BUN 13 Creatinine 0.82 Estim Creat Clear Calc 81.11 Est GFR (MDRD) Af Amer 101 Est GFR (MDRD) Non-Af 83 BUN/Creatinine Ratio 15.9 Glucose 93 Lactic Acid 0.8 Calcium 9.0 Total Bilirubin 0.10 L AST 20 ALT 36 Alkaline Phosphatase 96 Total Protein 7.4 Albumin 3.7 Globulin 3.7 Albumin/Globulin Ratio 1.0 Lipase 74 Serum , Qual NEGATIVE Urine Color Yellow Urine Clarity Clear Urine pH 7.0 Ur Specific [place] 1.015 Urine Protein 15 H Urine Glucose (UA) Normal Urine Ketones Negative Urine Occult Blood 250 H Urine Nitrite Negative Urine Bilirubin Negative Urine Urobilinogen Normal Ur Leukocyte Esterase 100 H Urine RBC 10-25 SEEN Urine WBC 0-5 SEEN Ur Squamous Epith Cells 5-10 SEEN Urine Bacteria 0 SEEN Urine Mucus 0 SEEN Radiography Diagnostic Testing: Clinical Impression(s) from Imaging Studies Abdomen/Pelvis CT 07/27/23 23:35 IMPRESSION: Bilateral ovarian cysts or follicles more numerous on the left, largest is less than 3 cm. Pelvic ultrasound correlation may be helpful if clinically indicated. No other acute findings. Electronically Signed: Devorah Trujillo MD at 0:13 EDT , Discharge Plan Triage Chief Complaint: Abd Pain ED Provider: Maurice Leon Dx/Rx/DC Orders Clinical Impression: Ovarian cyst, Nausea & vomiting Instructions: ED Ovarian Cyst, ED Vomiting (Adult) Prescriptions: New ondansetron 4 mg tablet,disintegrating 4 mg PO TID PRN (Reason: nausea and vomiting) Qty: 21 0RF oxycodone-acetaminophen [Percocet] 5-325 mg tablet 1 tab PO Q6H PRN (Reason: pain) 3 Days Qty: 12 0RF No Action Abilify BuSpar trazodone hydrocodone-acetaminophen [hydrocodone-acetaminophen] 5-325 mg tablet 1 tab PO Q6H PRN PRN (Reason: Pain) 2 Days Qty: 8 0RF doxycycline monohydrate 100 mg capsule 100 mg PO BID Qty: 20 0RF Primary Care Provider: Care Physician,No Primary Referrals: Tracie Houston DO [Med Staff - Active Staff] - Care Physician,No Primary [Primary Care Provider] - Activity Restrictions/Additional Instructions: Your CT scan showed a persistent ovarian cyst on the left secondary to this follow-up with CREDIT CLERK for repeat evaluation and return to the ER should you have any further concerns Disposition Disposition: Home, Self Care
[2023-07-28 00:40] VITALS: BP 102/65; PULSE 78; RESP 18
== END 2023-07-28 00:41 | disposition home or self-care (01) ==
PROVIDERS: Emergency Provider Emergency Medicine; Visit Provider Emergency Medicine
DX: N83.201 Unspecified ovarian cyst, right side (principal); F31.9 Bipolar disorder, unspecified; R11.2 Nausea with vomiting, unspecified; F41.9 Anxiety disorder, unspecified; F17.210 Nicotine dependence, cigarettes, uncomplicated; N83.202 Unspecified ovarian cyst, left side
CPT/HCPCS: 74177; 80053; 81001; 82274; 83605; 83690; 84703; 85025; 96361; 96374; 96375; 99283; J7030; Q9967; A4216; J2405

== ENCOUNTER 2023-08-07 11:05 | Emergency (ER) | payer MEDICAID, SELFPAY ==
[2023-08-07 11:06] VITALS: BP 108/74; PULSE 91; RESP 20; TEMP 36.8; O2SAT 99; BMI 25.4
--- NOTE | 2023-08-07 11:15 | RAD_ITS ---
STUDY: X-RAY CHEST REASON FOR EXAM: Female, 38 years old. cp TECHNIQUE: Single AP portable view of the chest. COMPARISON: 06/26/2023 FINDINGS: The lungs are clear and expanded. There is no demonstrated pleural abnormality. Normal size heart. Normal mediastinum and navid. Normal visualized pulmonary arteries. Normal visualized aortic arch and descending thoracic aorta. Normal visualized thoracic spine. Normal visualized ribs, clavicles, and shoulders. There is no demonstrated abnormality of the visualized soft tissue structures of the upper abdomen. RAD/Chest 1 View (Portable) IMPRESSION: Normal x-ray examination of the chest. Electronically Signed: Pato Rg MD at 12:22 [facility] ,
--- NOTE | 2023-08-07 11:15 | US_ITS ---
STUDY: ULTRASOUND TRANSVAGINAL CLINICAL: Female, 38 years old. left ovarian cysts - increased pain TECHNIQUE: Transvaginal COMPARISON: CT 07/27/2023 FINDINGS: Normal uterine size measuring 7.9 x 5.1 x 3.7 cm in maximal craniocaudal dimension. There are no myometrial masses. Normal endometrial thickness measuring 6 mm. There are no endometrial masses, and there is no fluid in the endometrial cavity. Normal uterine cervix. Normal right ovary, measuring 2.7 x 1.8 x 1.1 cm. There are multiple follicles without a dominant cyst. Normal left ovary, measuring 2.8 x 2.0 x 2.2 cm. There are multiple follicles without a dominant cyst. There is no free fluid in the pelvis. Polycystic ovary disease: No. US/Transvaginal Non- IMPRESSION: Normal transvaginal pelvic ultrasound. Electronically Signed: Pato Rg MD at 13:29 EST ,
--- NOTE | 2023-08-07 11:16 | EKG12_ITS ---
Test Reason : CP Blood Pressure : / mmHG Vent. Rate : 091 BPM Atrial Rate : 091 BPM P-R Int : 210 ms QRS Dur : 074 ms QT Int : 336 ms P-R-T Axes : 050 010 039 degrees QTc Int : 413 ms Sinus rhythm with 1st degree A-V block Otherwise normal ECG Confirmed by RIKY MONTEIRO, BRANDY ([id number]), digital editor GRICEL CHRISTIANSEN ([id number]) on 08/16/2023 2:11:49 PM Referred By: Confirmed By:BRANDY LAN MD
--- NOTE | 2023-08-07 11:18 | EDS_ITS ---
HPI History of Present Illness Chief Complaint: Chest Pain Detail of Chief Complaint: Chest pain, vomiting, hematemesis, lower abdominal pain Informant: patient Onset/Context/Timing Onset: Today Narrative Narrative: Patient states that she has been dealing with 3 left ovarian cysts is been taking Tylenol for pain. She is scheduled to see [facility] on the . She presents via EMS today with increased pain to this area as well as epigastric and chest pain. She states she vomited blood. She shows me a picture of red blood in the toilet from when she vomited, but she was unable to quantify how much blood there was. She states she has had this happen before but never followed up with GI for a scope. She has no known history of ulcers. [facility] Medical History (Updated 08/07/23 @ 13:[address] Tracie Rai MD) Anxiety Bipolar disorder Depression Ovarian cyst Sleep paralysis Home Medications Abilify 10/19/22 [History Last Taken Unknown] BuSpar 10/19/22 [History Last Taken Unknown] trazodone 10/19/22 [History Last Taken Unknown] doxycycline monohydrate 100 mg capsule 100 mg PO BID #20 CAPSULES 06/26/23 [Rx Last Taken Unknown] hydrocodone-acetaminophen 5-325mg 5mg-325mg 1 tab PO Q6H PRN PRN Pain 2 days #8 TABLETS 06/26/23 [Rx Last Taken Unknown] ondansetron 4 mg disintegrating tablet 4 mg PO TID PRN nausea and vomiting #21 tabs 07/28/23 [Rx Last Taken Unknown] oxycodone-acetaminophen 5 mg-325 mg tablet (Percocet) 1 tab PO Q6H PRN pain 3 days #12 tabs 07/28/23 [Rx Last Taken Unknown] omeprazole magnesium 20 mg tablet,delayed release (Prilosec OTC) 40 mg (2 x 20 mg) PO DAILY #30 tabs 08/07/23 [Rx Last Taken Unknown] ondansetron 4 mg disintegrating tablet 4 mg PO Q8H PRN PRN Nausea #10 tabs 08/07/23 [Rx Last Taken Unknown] oxycodone-acetaminophen 5 mg-325 mg tablet (Percocet) 1 tab PO Q8H PRN pain 3 days #10 tabs 08/07/23 [Rx Last Taken Unknown] Allergy/AdvReac Type Severity Reaction Status Date / Time ketorolac [From Toradol] Allergy Anaphylaxis Verified 08/07/23 11:13 naproxen Allergy Anaphylaxis Verified 08/07/23 11:13 Social History household members: children Smoking Status: Current every day smoker tobacco type: cigarettes alcohol intake: current ROS ROS ED Constitutional Constitutional ED: Denies chills or fever(s) Eyes Eyes: Denies discharge from eye(s) ENT ENT ED: Denies discharge from eye(s), rhinorrhea or sore throat Cardiovascular Cardiovascular: Reports chest pain; Denies palpitations Respiratory/Chest Respiratory/Chest: Denies cough or dyspnea Gastrointestinal Gastrointestinal: Reports abdominal pain, nausea and vomiting; Denies diarrhea Genitourinary Genitourinary ED: Denies dysuria Musculoskeletal Musculoskeletal: Denies back pain or extremity pain Integumentary Denies Abrasions or rash Neurologic Neurologic: Reports headache(s); Denies weakness Psychiatric Psychiatric: Reports anxiety; Denies depression Allergic/Immunologic Allergic/Immunologic ED: Denies lip swelling or urticaria EXAM Physical Exam Const Vital Signs: 08/07/23 11:06 08/07/23 11:14 Temperature 98.2 F Temperature Source Oral Pulse Rate 91 Respiratory Rate 20 H Respiratory Effort Normal Non-Labored Blood Pressure 108/74 Blood Pressure Mean 85 Pulse Ox 99 Oxygen Delivery Method Room Air Positive well nourished and well developed General Appearance ED: well developed HEENT Reports moist mucous membranes Eyes EOMs intact bilaterally Chest Wall inspection of chest normal and palpation of chest normal Resp normal respiratory effort and clear to auscultation bilaterally Cardio regular rate and regular rhythm GI GI Narrative: Abdomen soft with tenderness in the epigastrium as well as in the left lower quadrant. No guarding or rebound. Extremity normal to inspection Neuro oriented x3 and no sensory deficits noted Motor Exam: strength 5/5 throughout Psych mental status grossly normal Skin no rashes or lesions noted MDM MDM MDM Narrative Medical decision making narrative: Patient placed on teletypesetter monitor. EKG obtained to evaluate for cardiac arrhythmia/ischemia. Labwork obtained to evaluate for leukocytosis, anemia, and electrolyte derangement. Chest x-ray obtained to evaluate for acute lung pathology, cardiac size, or mediastinal abnormality. Pelvic ultrasound obtained given her known history of left ovarian cyst and increased pain to rule out torsion. Urinalysis obtained to evaluate for infection/hematuria. Patient given morphine and Zofran for pain and nausea along with Protonix. History & Record Review Discussion w/independent historian: EMS personnel and Patient Additional record(s) reviewed:: Prior ED visit and Prior labs Lab Data Attestation: I reviewed the patient's lab results. Labs: Laboratory Results - last 24 hr 08/07/23 08/07/23 11:23 12:14 WBC 15.9 H RBC 4.43 Hgb 14.7 Hct 44.6 MCV 100.7 H MCH 33.2 H MCHC 33.0 RDW Std Deviation 46.5 H RDW Coeff of Poonam 12.4 Plt Count 381 MPV 9.7 Immature Gran % (Auto) 0.900 Neut % (Auto) 80.7 H Lymph % (Auto) 11.1 L [place] % (Auto) 6.6 Eos % (Auto) 0.4 Baso % (Auto) 0.3 Absolute Neuts (auto) 12.9 H Absolute Lymphs (auto) 1.77 Nucleated RBC % 0 Sodium 137 Potassium 4.1 Chloride 108 H Carbon Dioxide 28.0 Anion Gap 1 L BUN 12 Creatinine 0.79 Estim Creat Clear Calc 84.19 Est GFR (MDRD) Af Amer 106 Est GFR (MDRD) Non-Af 87 BUN/Creatinine Ratio 15.3 Glucose 104 Calcium 8.7 Total Bilirubin 0.20 Direct Bilirubin 0.06 AST 19 ALT 26 Alkaline Phosphatase 98 Troponin I High Sens 5 Total Protein 7.9 Albumin 3.6 Globulin 4.3 H Lipase 30 Serum , Qual NEGATIVE Urine Color Straw Urine Clarity Sl. Cloudy Urine pH 6.5 Ur Specific [place] 1.010 Urine Protein 30 H Urine Glucose (UA) Normal Urine Ketones Negative Urine Occult Blood 250 H Urine Nitrite Negative Urine Bilirubin Negative Urine Urobilinogen Normal Ur Leukocyte Esterase 500 H Urine RBC 25-50 SEEN Urine WBC 25-50 SEEN Ur Squamous Epith Cells 0-5 SEEN Urine Bacteria 0 SEEN Urine Mucus 0 SEEN Radiography Chest X-Ray - ED: 1 View, Read by ED Physician, Normal, Heart, Lungs and Mediastinum Diagnostic Testing: Clinical Impression(s) from Imaging Studies Chest X-Ray 08/07/23 11:15 IMPRESSION: Normal x-ray examination of the chest. Electronically Signed: Pato Rg MD at 12:22 EST Reading Location ID and State: [id number] / [place] Tel , Service support , Transvaginal US 08/07/23 11:15 IMPRESSION: Normal transvaginal pelvic ultrasound. Electronically Signed: Pato Rg MD at 13:29 EST Reading Location ID and State: [id number] / [place] Tel , Service support , EKG Initial EKG: Attestation: I personally reviewed and interpreted this EKG as follows: Interpretation: Sinus Rhythm (Sinus at 91 with no acute ischemia.) Treatment and Re-Evaluation :: CBC was elevated white count at 15.9 with 80% neutrophils. Chemistry studies are unremarkable. Her BUN is normal at 12. LFTs and lipase are normal. Troponin is normal at 5. test is negative. Urinalysis does reveal 25-50 red cells and 25-50 white cells. No nitrites are noted. No bacteria are noted. Chest x-ray per my interpretation reveals no acute findings. Radiology interpretation is reviewed and agrees. EKG is sinus with no acute ischemia. Pelvic ultrasound is performed. At this time there is no evidence of ovarian cysts and no evidence of torsion. No free fluid noted in the pelvis. Test results are discussed with the patient. I will write her prescription for Zofran as well as Prilosec. I will write her a short course of Percocet as she is unable to take NSAIDs and has had some blood in her vomitus and I do not want to further this. She has an appointment to follow-up with [facility] on the . Return instructions given. Discharge Plan Triage Chief Complaint: Chest Pain ED Provider: Tracie Rai Dx/Rx/DC Orders Clinical Impression: Hematemesis, Abdominal pain, Chest pain Instructions: ED Abdominal Pain Unkn Cause Fem, ED Chest Pain, Noncardiac, ED Upper GI Bleeding (Stable) Prescriptions: New ondansetron 4 mg tablet,disintegrating 4 mg PO Q8H PRN PRN (Reason: Nausea) Qty: 10 0RF oxycodone-acetaminophen [Percocet] 5-325 mg tablet 1 tab PO Q8H PRN (Reason: pain) 3 Days Qty: 10 0RF omeprazole magnesium [Prilosec OTC] 20 mg tablet,delayed release (DR/EC) 40 mg PO DAILY Qty: 30 0RF No Action Abilify BuSpar trazodone hydrocodone-acetaminophen [hydrocodone-acetaminophen] 5-325 mg tablet 1 tab PO Q6H PRN PRN (Reason: Pain) 2 Days Qty: 8 0RF doxycycline monohydrate 100 mg capsule 100 mg PO BID Qty: 20 0RF ondansetron 4 mg tablet,disintegrating 4 mg PO TID PRN (Reason: nausea and vomiting) Qty: 21 0RF oxycodone-acetaminophen [Percocet] 5-325 mg tablet 1 tab PO Q6H PRN (Reason: pain) 3 Days Qty: 12 0RF Primary Care Provider: Care Physician,No Primary Referrals: Luis Armando Jerez MD [Med Staff - Active Staff] - Keep [facility] appointment Care Physician,No Primary [Primary Care Provider] - Disposition Disposition: Home, Self Care
[2023-08-07] MEDS: Ondansetron 4 MG/2 ML Vial IV (11:29)
[2023-08-07] MEDS: Morphine 4 MG/ML Syringe IV (11:29)
[2023-08-07] MEDS: 0.9% Normal Saline (1000mL) 1,000 ML 150 ML IV (11:30)
[2023-08-07 11:31] LABS: Absolute Lymphocyte Count 1.77 X10^3/uL (0.83-4.51); Absolute Neutrophil Count 12.9 X10^3/uL (2.0-7.7); Basophil# 0.05 X10^3/uL; Basophil% 0.3 % (0-1); Eosinophil# 0.06 X10^3/uL; Eosinophils% 0.4 % (0-5); Hematocrit 44.6 % (37-47); Hemoglobin 14.7 g/dL (12.0-15.0); Lymphocyte # 1.77 X10^3/ul (0.83-4.51); Lymphocyte % 11.1 % (19-41); Mean Corpuscular Hgb 33.2 pg (27.0-32.0); Mean Corpuscular Volume 100.7 fL (81-99); Mean Platelet Vol. 9.7 fl (6.2-12.0); Monocyte# 1.06 X10^3/uL; Monocyte% 6.6 % (0-10); NRBC Flagged by Analyzer 0 % (0-5); Neutrophil # 12.86 X10^3/uL (2.7-7.7); Neutrophil % 80.7 % (47-70); Platelet Count 381 K/mm3 (150-450); RBC Distribution Width CV 12.4 % (11.6-14.6); RBC Distribution Width SD 46.5 fl (35.1-43.9); Red Blood Count 4.43 M/mm3 (4.2-5.4); White Blood Count 15.9 K/mm3 (4.4-11.0)
[2023-08-07 11:37] LABS: Internal QC Validated? YES +Cl - CLEAR BKGD; Pregnancy, Serum, hCG Quali. NEGATIVE Negative; Record Kit Lot#, Serum Preg. HCG0000667200
[2023-08-07] MEDS: Pantoprazole Sodium 40 MG in 0.9% Normal Saline (100mL MB+) 100 ML 330 MG IV (11:38)
[2023-08-07 11:52] LABS: AST(SGOT) 19 U/L (15-37); Alanine Aminotransfer ALT/SGPT 26 U/L (13-56); Albumin, Serum 3.6 g/dL (3.2-5.0); Alkaline Phosphatase 98 U/L (45-117); Anion Gap 1 (5-15); BUN 12 mg/dL (7-18); BUN/Creat Ratio 15.3 RATIO (10-20); Bilirubin, Direct 0.06 mg/dL (0.00-0.30); Calcium,Total 8.7 mg/dL (8.5-10.1); Chloride 108 mmol/L (98-107); Creatinine, Serum 0.79 mg/dL (0.55-1.02); EST Glomerular Filtration Rate 87 mL/min (>60); Est Glom Filt Rate - Afr Amer 106 mL/min (>60); Estimated Creatinine Clearance 84.19 ml/min; Globulin 4.3 g/dL (2.2-4.2); Glucose 104 mg/dL (74-106); Lipase 30 U/L (13-75); Potassium 4.1 mmol/L (3.5-5.1); Protein, Total 7.9 g/dL (6.4-8.2); Sodium Level 137 mmol/L (136-145); Troponin-I HS 5 pg/mL (3.0-54.0)
[2023-08-07 13:18] LABS: Bacteria 0 SEEN /hpf (None Seen); Mucous, Urine 0 SEEN /hpf (<or=2+)
[2023-08-07 13:21] LABS: Color, Urine Straw (Yellow); Glucose, Dipstick Normal (Normal); Ketone-Dipstick Negative (Negative); Leukocyte Esterase-Dipstick 500 /ul (Negative); Nitrite-Dipstick Negative (Negative); Occult Blood-Urine 250 /ul (Negative); Protein-Dipstick 30 mg/dl (Negative); Urine Bilirubin Dipstick Negative (Negative); Urine Clarity Sl. Cloudy (Clear); Urine Urobilinogen Normal (Normal); Urine pH 6.5 (5.0 - 8.0)
[2023-08-07 13:34] LABS: Red Blood Cells-Urine 25-50 SEEN /hpf (0-5); Squamous Epithelial Cells - UA 0-5 SEEN /hpf (5-10); White Blood Cells 25-50 SEEN /hpf (0-5)
[2023-08-07 13:43] VITALS: BP 90/55; PULSE 81; RESP 20; O2SAT 99
== END 2023-08-07 14:02 | disposition home or self-care (01) ==
PROVIDERS: Emergency Provider Emergency Medicine; Visit Provider Emergency Medicine
DX: K92.0 Hematemesis (principal); F31.9 Bipolar disorder, unspecified; F17.210 Nicotine dependence, cigarettes, uncomplicated; R07.9 Chest pain, unspecified; R10.9 Unspecified abdominal pain; F41.9 Anxiety disorder, unspecified; Z79.899 Other long term (current) drug therapy
CPT/HCPCS: 71045; 76830; 80048; 80076; 81001; 83690; 84484; 84703; 85025; 93005; 96365; 96366; 96375; 99285; J7030; A4216; J2405

== ENCOUNTER 2023-08-13 17:38 | Emergency (ER) | payer MEDICAID, SELFPAY ==
[2023-08-13 17:39] VITALS: BP 99/59; PULSE 90; RESP 16; TEMP 36.4; O2SAT 99; BMI 27.3
--- NOTE | 2023-08-13 17:59 | ED.VIS.GI ---
HPI HPI - GI History of Present Illness Chief Complaint: Abd Pain Detail of Chief Complaint: Nausea and vomiting with possible hematemesis. Informant: patient Abdominal Pain/Flank Pain Onset: Days Context: Gradual Onset Timing: Intermittent Location: LLQ Current Severity: Mild Maximum Severity: Mild Worsened by: Nothing Relieved by: Nothing Nausea/Vomiting/Emesis GI Symptom: Positive for Nausea and Vomiting Onset: Today Quality: Positive for Blood streaks; Negative for Coffee ground Severity: Mild Diarrhea/Melena/Hematochezia GI Symptom: Negative for Diarrhea, Melena or Hematochezia Associated Symptoms Associated Symptoms: Negative for Dysuria, Frequency, Hematuria or Urgency Narrative Narrative: 38-year-old female history of bipolar disorder. History of ovarian cyst. Prior history of both cholecystectomy and appendectomy. States that she is having abdominal pain with nausea and vomiting. Possibly blood-streaked emesis. She is not on any blood thinners. No fever. No dysuria. Patient's had recent labs and CAT scans that have been unremarkable for similar complaints. Prior similar symptoms: Yes Recent Illness/Hospitalization: No PFSH PFSH Medical History Anxiety Bipolar disorder Depression Insomnia OCD (obsessive compulsive disorder) Ovarian cyst Sleep paralysis Home Medications Abilify 10/19/22 [History Last Taken Unknown] BuSpar 10/19/22 [History Last Taken Unknown] trazodone 10/19/22 [History Last Taken Unknown] doxycycline monohydrate 100 mg capsule 100 mg PO BID #20 CAPSULES 06/26/23 [Rx Last Taken Unknown] hydrocodone-acetaminophen 5-325mg 5mg-325mg 1 tab PO Q6H PRN PRN Pain 2 days #8 TABLETS 06/26/23 [Rx Last Taken Unknown] ondansetron 4 mg disintegrating tablet 4 mg PO TID PRN nausea and vomiting #21 tabs 07/28/23 [Rx Last Taken Unknown] oxycodone-acetaminophen 5 mg-325 mg tablet (Percocet) 1 tab PO Q6H PRN pain 3 days #12 tabs 07/28/23 [Rx Last Taken Unknown] omeprazole magnesium 20 mg tablet,delayed release (Prilosec OTC) 40 mg (2 x 20 mg) PO DAILY #30 tabs 08/07/23 [Rx Last Taken Unknown] ondansetron 4 mg disintegrating tablet 4 mg PO Q8H PRN PRN Nausea #10 tabs 08/07/23 [Rx Last Taken Unknown] oxycodone-acetaminophen 5 mg-325 mg tablet (Percocet) 1 tab PO Q8H PRN pain 3 days #10 tabs 08/07/23 [Rx Last Taken Unknown] ondansetron 4 mg disintegrating tablet 4 mg PO Q8H PRN PRN Nausea #10 tabs 08/13/23 [Rx Last Taken Unknown] Allergy/AdvReac Type Severity Reaction Status Date / Time ketorolac [From Toradol] Allergy Anaphylaxis Verified 08/13/23 17:43 naproxen Allergy Anaphylaxis Verified 08/13/23 17:43 Social History household members: children Smoking Status: Current every day smoker tobacco type: cigarettes alcohol intake: current ROS ROS ED ROS Narrative Abdominal pain. Nausea and vomiting. Review of Systems ROS Unobtainable: Denies due to encephalopathy Constitutional Constitutional ED: Denies chills or fever(s) ENT ENT ED: Denies ear pain Cardiovascular Cardiovascular: Denies chest pain Respiratory/Chest Respiratory/Chest: Denies cough or dyspnea Gastrointestinal Gastrointestinal: Reports abdominal pain, nausea and vomiting; Denies constipation, diarrhea or melena Genitourinary Genitourinary ED: Denies dysuria or hematuria Musculoskeletal Musculoskeletal: Denies arthralgias Integumentary Denies abscess Neurologic Neurologic: Denies headache(s) Psychiatric Psychiatric: Denies anxiety Endocrine Endocrinology: Denies polydipsia Hematologic/Lymphatic Hematologic/Lymphatic: Denies easy bleeding Allergic/Immunologic Allergic/Immunologic ED: Denies mouth swelling or tongue swelling EXAM Physical Exam Narrative Exam Narrative: Well-appearing 38-year-old female. Vital signs are stable. Afebrile. Her blood pressures mildly low at 99/59. She does not look septic toxic or in any distress. HEENT exam unremarkable. Neck nontender. Lungs are clear. Heart regular rhythm rate about 90 no murmur. Chest wall nontender. Abdomen soft, nondistended normal bowel sounds no peritoneal signs. Mild tenderness. No hernia or mass. No obstruction. Right upper and right lower quadrants are unremarkable. Moving all 4 extremities. Nontender no edema. Neurologically she is awake and alert with no focal motor deficits. Back is nontender. Const Vital Signs: 08/13/23 17:39 Temperature 97.6 F L Temperature Source Temporal Pulse Rate 90 Respiratory Rate 16 Blood Pressure 99/59 L Blood Pressure Mean 72 Pulse Ox 99 Oxygen Delivery Method Room Air Positive well nourished and well developed; Negative for cachectic, contractures or unkempt General Appearance ED: well developed and NAD; Negative for unkempt, cachectic, contractures or pallor Nutritional Appearance: Negative for cachectic HEENT Reports moist mucous membranes normocephalic and atraumatic; Negative for trauma or tenderness Eyes PERRL and EOMs intact bilaterally General Eye ED: Negative for pale conjunctiva or scleral icterus Neck no lymphadenopathy, supple and no JVD General: Negative for tenderness Lymph Lymphatic: Negative for other Resp normal respiratory effort and clear to auscultation bilaterally Effort and Inspection: Negative for respiratory distress Auscultation: Negative for rales, rhonchi or wheezes Cardio regular rate, regular rhythm, S1 normal heart sound, S2 normal heart sound and no murmurs Rate: Negative for bradycardia or tachycardic Rhythm: Negative for abnormal rhythm GI non-distended and no masses; Negative for non-tender Inspection: Negative for abdominal distention Auscultation: normoactive bowel sounds Palpation: soft and tender; Negative for guarding, rigid, hepatomegaly, splenomegaly, hernia, mass, pulsatile mass or rebound tenderness present Back/Spine no CVA tenderness General Back: Negative for CVA tenderness Cervical Spine: Negative for cervical spine tenderness Thoracic Spine / Upper Back: Negative for thoracic spinal tenderness Lumbar Spine / Lower Back: Negative for lumbar spinal tenderness Extremity full ROM General Extremety ED: Negative for edema or tenderness General Extremity: Negative for edema Neuro CN's II-XII intact bilaterally and moves all extremities Sensorium / Orientation: alert, oriented to person, oriented to place and oriented to time; Negative for orientation impaired, confused, lethargic or stuporous Motor Exam: strength 5/5 throughout Psych mental status grossly normal and thought process normal Appearance: Negative for unkempt Attitude: No agitated Mood & Affect: Negative for depressed, anxious or tearful Skin no wounds General Skin Exam: Negative for jaundice or pallor Lesions: no lesions Rashes: no rashes Trauma: Negative for abrasion Nails: Negative for discolored MDM MDM MDM Narrative Medical decision making narrative: 38-year-old complaint abdominal pain with nausea vomiting. Exam is benign. Prior work-ups negative including CAT scans. I do not think she needs imaging today. She be treated IV fluids for the nausea vomiting and borderline hypotension. Zofran for nausea. Screening labs. Repeat exam at 7:02 PM when well. IV blew they were able to restart another 1. She is receiving her IV fluids she will get IV Zofran. Patient be discharged home. Zofran for nausea. Patient has had 2 recent CAT scan of the abdomen and pelvis which showed ovarian cyst otherwise were unremarkable. Think she needs reimaged tonight. Lab Data Attestation: I reviewed the patient's lab results. Lab results narrative: BC shows a white count of 10.5. H&H of 13.7 and 42.6. Platelets of 393. Lecture lites unremarkable gap of 2 normal BUN of 10 creatinine 0.7. Liver enzymes are unremarkable. Labs: Laboratory Results - last 24 hr 08/13/23 18:28 WBC 10.5 RBC 4.18 L Hgb 13.7 Hct 42.6 MCV 101.9 H MCH 32.8 H MCHC 32.2 RDW Std Deviation 46.5 H RDW Coeff of P[place]am 12.4 Plt Count 393 MPV 10.1 Immature Gran % (Auto) 0.900 Neut % (Auto) 74.6 H Lymph % (Auto) 16.3 L [place] % (Auto) 7.2 Eos % (Auto) 0.3 Baso % (Auto) 0.7 Absolute Neuts (auto) 7.9 H Absolute Lymphs (auto) 1.71 Nucleated RBC % 0 Sodium 138 Potassium 4.0 Chloride 108 H Carbon Dioxide 28.0 Anion Gap 2 L BUN 10 Creatinine 0.79 Estim Creat Clear Calc 84.19 Est GFR (MDRD) Af Amer 106 Est GFR (MDRD) Non-Af 87 BUN/Creatinine Ratio 12.7 Glucose 80 Calcium 9.2 Total Bilirubin 0.30 AST 26 ALT 29 Alkaline Phosphatase 88 Total Protein 7.8 Albumin 3.5 Globulin 4.3 H Albumin/Globulin Ratio 0.8 L Discharge Plan Triage Chief Complaint: Abd Pain ED Provider: Aníbal Minaya Dx/Rx/DC Orders Clinical Impression: Hx of ovarian cyst, Nausea & vomiting, Abdominal pain Instructions: Abdominal Pain, ED Vomiting (Adult) Prescriptions: New ondansetron 4 mg tablet,disintegrating 4 mg PO Q8H PRN PRN (Reason: Nausea) Qty: 10 0RF No Action Abilify BuSpar trazodone hydrocodone-acetaminophen [hydrocodone-acetaminophen] 5-325 mg tablet 1 tab PO Q6H PRN PRN (Reason: Pain) 2 Days Qty: 8 0RF doxycycline monohydrate 100 mg capsule 100 mg PO BID Qty: 20 0RF ondansetron 4 mg tablet,disintegrating 4 mg PO TID PRN (Reason: nausea and vomiting) Qty: 21 0RF oxycodone-acetaminophen [Percocet] 5-325 mg tablet 1 tab PO Q6H PRN (Reason: pain) 3 Days Qty: 12 0RF ondansetron 4 mg tablet,disintegrating 4 mg PO Q8H PRN PRN (Reason: Nausea) Qty: 10 0RF oxycodone-acetaminophen [Percocet] 5-325 mg tablet 1 tab PO Q8H PRN (Reason: pain) 3 Days Qty: 10 0RF omeprazole magnesium [Prilosec OTC] 20 mg tablet,delayed release (DR/EC) 40 mg PO DAILY Qty: 30 0RF Primary Care Provider: Care Physician,No Primary Referrals: Kristy Munoz MD [Med Staff - Active Staff] - 1 Week if not improving Care Physician,No Primary [Primary Care Provider] - Activity Restrictions/Additional Instructions: Plenty of fluids and rest. Zofran as needed for nausea. Follow-up with a local DIE FILER for your ovarian cyst if not improving. Motrin and Tylenol for pain. Disposition Disposition: Home, Self Care
[2023-08-13] MEDS: 0.9% Normal Saline (1000mL) 1,000 ML 1000 ML IV (18:24)
[2023-08-13] MEDS: Ondansetron 4 MG/2 ML Vial IV (18:24)
[2023-08-13 18:33] LABS: Absolute Lymphocyte Count 1.71 X10^3/uL (0.83-4.51); Absolute Neutrophil Count 7.9 X10^3/uL (2.0-7.7); Basophil# 0.07 X10^3/uL; Basophil% 0.7 % (0-1); Eosinophil# 0.03 X10^3/uL; Eosinophils% 0.3 % (0-5); Hematocrit 42.6 % (37-47); Hemoglobin 13.7 g/dL (12.0-15.0); Lymphocyte # 1.71 X10^3/ul (0.83-4.51); Lymphocyte % 16.3 % (19-41); Mean Corp Hgb Conc 32.2 g/dL (32-36); Mean Corpuscular Hgb 32.8 pg (27.0-32.0); Mean Corpuscular Volume 101.9 fL (81-99); Mean Platelet Vol. 10.1 fl (6.2-12.0); Monocyte# 0.76 X10^3/uL; Monocyte% 7.2 % (0-10); NRBC Flagged by Analyzer 0 % (0-5); Neutrophil # 7.85 X10^3/uL (2.7-7.7); Neutrophil % 74.6 % (47-70); Platelet Count 393 K/mm3 (150-450); RBC Distribution Width CV 12.4 % (11.6-14.6); RBC Distribution Width SD 46.5 fl (35.1-43.9); Red Blood Count 4.18 M/mm3 (4.2-5.4); White Blood Count 10.5 K/mm3 (4.4-11.0)
[2023-08-13 18:49] LABS: ALB/GLOB Ratio 0.8 RATIO (0.9-2.4); AST(SGOT) 26 U/L (15-37); Alanine Aminotransfer ALT/SGPT 29 U/L (13-56); Albumin, Serum 3.5 g/dL (3.2-5.0); Alkaline Phosphatase 88 U/L (45-117); Anion Gap 2 (5-15); BUN 10 mg/dL (7-18); BUN/Creat Ratio 12.7 RATIO (10-20); Calcium,Total 9.2 mg/dL (8.5-10.1); Chloride 108 mmol/L (98-107); Creatinine, Serum 0.79 mg/dL (0.55-1.02); EST Glomerular Filtration Rate 87 mL/min (>60); Est Glom Filt Rate - Afr Amer 106 mL/min (>60); Estimated Creatinine Clearance 84.19 ml/min; Globulin 4.3 g/dL (2.2-4.2); Glucose 80 mg/dL (74-106); Protein, Total 7.8 g/dL (6.4-8.2); Sodium Level 138 mmol/L (136-145)
[2023-08-13 19:25] VITALS: BP 101/81; PULSE 81; RESP 16; O2SAT 98
== END 2023-08-13 19:27 | disposition home or self-care (01) ==
PROVIDERS: Emergency Provider Emergency Medicine; Visit Provider Emergency Medicine
DX: R11.2 Nausea with vomiting, unspecified (principal); F31.9 Bipolar disorder, unspecified; F17.210 Nicotine dependence, cigarettes, uncomplicated; R10.9 Unspecified abdominal pain; Z87.42 Personal history of other diseases of the female genital tract; Z90.49 Acquired absence of other specified parts of digestive tract; F41.9 Anxiety disorder, unspecified
CPT/HCPCS: 80053; 85025; 96361; 96374; 99284; J7030; A4216; J2405

== ENCOUNTER 2023-12-04 01:08 | Emergency (ER) | payer MEDICAID, SELFPAY ==
[2023-12-04 01:11] VITALS: BP 120/104; PULSE 83; RESP 22; TEMP 35.6; O2SAT 98; BMI 26.5
[2023-12-04 01:14] VITALS: BP 102/64; PULSE 82; RESP 24; TEMP 35.6; O2SAT 98
--- NOTE | 2023-12-04 01:26 | EDS_ITS ---
HPI History of Present Illness Chief Complaint: Abd Pain [facility] Medical History Anxiety Bipolar disorder Depression Insomnia OCD (obsessive compulsive disorder) Ovarian cyst Sleep paralysis Home Medications Abilify 10 mg PO DAILY 10/19/22 [History Last Taken Unknown] BuSpar 15 mg PO TID 10/19/22 [History Last Taken Unknown] trazodone 200 mg PO QHS 10/19/22 [History Last Taken Unknown] hydrocodone-acetaminophen 5-325mg 5mg-325mg 1 tab PO Q6H PRN PRN Pain 2 days #8 TABLETS 06/26/23 [Rx Last Taken Unknown] omeprazole magnesium 20 mg tablet,delayed release (Prilosec OTC) 40 mg (2 x 20 mg) PO DAILY #30 tabs 08/07/23 [Rx Last Taken Unknown] ondansetron 4 mg disintegrating tablet 4 mg PO Q8H PRN PRN Nausea #10 tabs 08/07/23 [Rx Last Taken Unknown] bupropion HBr 174 mg tablet,extended release 24 hr 174 mg PO DAILY 12/04/23 [History Last Taken Unknown] guanfacine 1 mg tablet,extended release 24 hr 1 mg PO DAILY 12/04/23 [History Last Taken Unknown] lamotrigine 25 mg tablet 25 mg PO Q12H 12/04/23 [History Last Taken Unknown] quetiapine 200 mg tablet 200 mg PO QHS 12/04/23 [History Last Taken Unknown] quetiapine 300 mg tablet 300 mg PO QHS 12/04/23 [History Last Taken Unknown] sertraline 100 mg tablet 100 mg PO DAILY 12/04/23 [History Last Taken Unknown] Allergy/AdvReac Type Severity Reaction Status Date / Time ketorolac [From Toradol] Allergy Anaphylaxis Verified 12/04/23 01:10 naproxen Allergy Anaphylaxis Verified 12/04/23 01:10 Social History household members: children Smoking Status: Current every day smoker tobacco type: cigarettes alcohol intake: current EXAM Physical Exam Const Vital Signs: 12/04/23 01:11 12/04/23 01:14 Temperature 96.1 F L 96.1 F L Temperature Source Temporal Temporal Pulse Rate 83 82 Respiratory Rate 22 H 24 H Blood Pressure 120/104 H 102/64 Blood Pressure Mean 109 76 Pulse Ox 98 98 Oxygen Delivery Method Room Air Room Air [facility] [place] Narrative Medical decision making narrative: HISTORY OF PRESENT ILLNESS: 38year old female presents with abdominal pain. Patient states she had her right ovary removed in 2019 and since has had intermittent lower abdominal pain. This most recent episode has been going on for last 7 days. Located in the lower abdomen. She denies any vaginal bleeding, urinary complaints. Denies any chest pain, shortness of breath, vomiting. States she was recently prescribed narcotic pain medicine and ran out this prompted her visit today. REVIEW OF SYSTEMS: All other systems reviewed and are negative except as noted in the history of present illness. At least 10 review of systems reviewed and are negative except as noted in history of present illness. PHYSICAL EXAM: Nursing triage notes reviewed, Vital signs reviewed Constitutional: please see mdm HENT: MMM Eyes: Pupils equal round and reactive to light, Extraocular muscles intact Neck: No stridor, no JVD, full neck ROM Lungs: Clear to auscultation, No wheezing or rales. No increased work of breathing, no conversational dyspnea, no accessory muscle use, no nasal flaring. No respiratory distress noted Heart: Regular rate and rhythm, No murmurs, No rubs and No gallops, 2+ distal pulses (radial, femoral, posterior tibial) in all extremities Abdomen: Soft, no rigidity, rebound or guarding, no obvious peritoneal signs, no palpable pulsatile abdominal masses, no auscultated abdominal bruit : No CVAT Extremities: No edema Neuro: No focal neurological deficits, cranial nerves II through XII intact, 5/5 strength in all extremities. Intact sensation to light touch in all extremities, 2+ reflexes bilateral patella tendons. Normal gait. No ataxia. Skin: No rash or lesions noted MEDICAL DECISION MAKING: Chief Complaint: abdominal pain External records reviewed: CT scan abdomen pelvis from 2022 shows bilateral ovarian cysts. Ultrasound from July 2023 shows both ordered ovaries present despite patient endorsing that she has an ovary removed. Factors affecting care: Bipolar disorder, ovarian cyst Social determinants of health: History of mental health issues History obtained from others: none Consults: none PDMP reviewed, multiple different narcotics progress for multiple different providers [facility] Narrative: Patient was initially hemodynamically stable, afebrile and nontoxic-appearing. Abdominal exam is benign. I considered the following differential diagnosis: AAA, small bowel obstruction, abdominal perforation, appendicitis, pancreatitis, hepatobiliary pathology (acute cholecystitis), mesenteric ischemia, abnormalities such as pyelonephritis, nephrolithiasis I offered the patient advanced labs, imaging studies to further elucidate etiology patient complaints. Patient who is alert and orient x 3 and had capacity to make her medical decisions, was not intoxicated, clinically sober and chose to forego labs despite risk of missed or delayed diagnosissecondary to not wanting to be poked . She stated she did not want an IV. She states historically been very difficult for practitioners to obtain IV access. She would rather go home and follows her primary doctor. Patient was discharged stable condition The patient and/or family, caregivers express understanding. The patient and/or family, caregivers agrees with the plan. Total critical care time today provided was at least 0 minutes. This excludes separately billable procedures. Critical care time (if documented) is secondary to the patient having high probability of clinically significant/life threaten ing deterioration in the patient's condition which required my urgent intervention. Shared decision making: I will have a discussion with the patient and or visitors regarding risk/benefits of further testing or admission. They will be made aware of of the risk/benefits inherent in this decision they will be given the opportunity to voice understanding. Impression: 1. Abdominal pain Disposition: Discharge home Wilfrid Dhaliwal DO Discharge Plan Triage Chief Complaint: Abd Pain ED Provider: Wilfrid Dhaliwal Dx/Rx/DC Orders Instructions: ED Abdominal Pain Unkn Cause Fem Prescriptions: No Action Abilify 10 mg PO DAILY BuSpar 15 mg PO TID trazodone 200 mg PO QHS hydrocodone-acetaminophen [hydrocodone-acetaminophen] 5-325 mg tablet 1 tab PO Q6H PRN PRN (Reason: Pain) 2 Days Qty: 8 0RF ondansetron 4 mg tablet,disintegrating 4 mg PO Q8H PRN PRN (Reason: Nausea) Qty: 10 0RF omeprazole magnesium [Prilosec OTC] 20 mg tablet,delayed release (DR/EC) 40 mg PO DAILY Qty: 30 0RF guanfacine 1 mg tablet extended release 24 hr 1 mg PO DAILY quetiapine 300 mg tablet 300 mg PO QHS sertraline 100 mg tablet 100 mg PO DAILY quetiapine 200 mg tablet 200 mg PO QHS lamotrigine 25 mg tablet 25 mg PO Q12H bupropion HBr 174 mg tablet extended release 24 hr 174 mg PO DAILY Primary Care Provider: Care Physician,No Primary Referrals: Luis Armando Jerez MD [Med Staff - Active Staff] - Activity Restrictions/Additional Instructions: Thank you for trusting us with your care today! Please take Tylenol (2 pills, 650 mg), ibuprofen (2 pills, 400 mg) every 6 hours as needed for pain and fever control. Please return to the emergency department if your symptoms change or worsen. Please follow with your primary care physician for further outpatient evaluation and management. Disposition Disposition: Home, Self Care Discharge Date/Time: 12/04/23 03:41
--- OUTSIDE RECORDS SUMMARY | 2023-12-04 01:33 | XMS RPT_ITS | CCD ---
Author Name Unknown Address [email or web address] [place] [address] Organization [facility] Care Team Providers Care Silver Solderer Name Role Phone DAT HAYNES Unavailable Unavailable ICLI, VANESSA Unavailable Unavailable ICLI, VANESSA Unavailable Unavailable EDWIN TABARES Unavailable Unavailable ICLI, VANESSA Unavailable Unavailable FAUSTO PERALTA Attending Unavailable GEOFF GALLOWAY Attending Unavailable MIRNA ESCOTO Attending Unavailable ICLI, VANESSA Primary Care Unavailable ICLI, VANESSA Primary Care Unavailable DAT HAYNES Attending Unavailable Unavailable Primary Care Provider UnavailKAT Lay MD Attending Unavailable KAT ZAMBRANO MD Primary Care Unavailable KAT ZAMBRANO MD Admitting Unavailable Icli Vanessa MONTEIRO Primary Care Provider [phone] ICLI, VANESSA Primary Care Unavailable JACQUELINE ARIAS Attending Unavailable ICLI, VANESSA Primary Care Unavailable KAT ZAMBRANO MD Admitting Unavailable KAT ZAMBRANO MD Primary Care Unavailable KAT ZAMBRANO MD Attending Unavailable KATY PEDROZA CNP Consulting Unavailable PROVIDER, UNKNOWN Consulting Unavailable PROVIDER, UNKNOWN Consulting Unavailable BUTCHER, LAINE C Admitting Unavailable BUTCHER, LAINE C Primary Care Unavailable BUTCHER LAINE C Attending Unavailable KATY PEDROZA CNP Consulting Unavailable PROVIDER, UNKNOWN Consulting Unavailable PROVIDER, UNKNOWN Consulting Unavailable KATY PEDROZA CNP Referring Unavailable RICARDOCINDI E Admitting Unavailable RICARDO, CINDI E Primary Care Unavailable RICARDOCINDI Attending Unavailable KATY PEDROZA CNP Consulting Unavailable PROVIDER, UNKNOWN Consulting Unavailable PROVIDER, UNKNOWN Consulting Unavailable KATY PEDROZA CNP Referring Unavailable TISHA OROZCO DO Admitting Unavailable TISHA OROZCO DO Primary Care Unavailable TISHA OROZCO DO Attending Unavailable KATY PEDROZA CNP Consulting Unavailable PROVIDER, UNKNOWN Consulting Unavailable PROVIDER, UNKNOWN Consulting Unavailable Allergies Allergy Classification Reported Allergen(s) Allergy Type Date of Onset Reaction(s) Facility (2 sources) Adhesive agent; Translations: [ADHESIVE] Propensity to adverse reactions (disorder) [facility] Repository (2 sources) ARIPiprazole Drug Allergy [facility] Repository (3 sources) Ketorolac; Translations: [KETOROLAC] Drug Allergy 8 [facility] Repository (3 sources) Naproxen; Translations: [NAPROXEN] Drug Allergy 8 [facility] (3 sources) Ketorolac Drug Allergy 8 Swelling [facility] (3 sources) Naproxen Drug Allergy 8 Hives [facility] Medications Completed/Discontinued Medications Medication Drug Class(es) Dates Sig (Normalized) Sig (Original) acetaminophen 325 mg oral tablet (3 sources) Start: 06-17-2018 take 2 tablets enteral route every four hours as needed acetaminophen (TYLENOL) 325 mg tablet 2 tablets by ORAL/FEEDING TUBE route every 4 hours as needed. 30 tablet 0 06/17/2018 Active Problems Active Problems Problem Classification Problem Date Documented Da te Episodic/Chronic Abdominal pain (6 sources) Unspecified abdominal pain; Translations: [Abdominal pain] Onset: 05-05-2018 06-17-2018 Episodic Anxiety disorders (1 source) Panic disorder [episodic paroxysmal anxiety]; Translations: [Panic disorder (episodic paroxysmal anxiety)] Onset: 10-04-2018 Chronic Endometriosis (2 sources) Endometriosis (clinical); Translations: [Endometriosis, unspecified] 08-10-2023 Chronic Fluid and electrolyte disorders (1 source) Dehydration; Translations: [Dehydration] Onset: 10-11-2018 Episodic Noninfectious gastroenteritis (1 source) Noninfective gastroenteritis and colitis, unspecified; Translations: [Noninfective gastroenteritis and colitis, unspecified] Onset: 10-11-2018 Episodic Nutritional deficiencies (3 sources) Deficiency of macronutrients; Translations: [Unspecified severe protein-calorie malnutrition] Onset: 06-12-2018 06-17-2018 Chronic Other female genital disorders (1 source) Abnormal uterine and vaginal bleeding, unspecified; Translations: [Abnormal uterine and vaginal bleeding, unspecified] Onset: 01-16-2018 Chronic Other gastrointestinal disorders (1 source) Constipation, unspecified; Translations: [Constipation, unspecified] Onset: 06-07-2018 Episodic Ovarian cyst (2 sources) Cyst of left ovary; Translations: [Unspecified ovarian cyst, left side] 08-10-2023 Episodic Residual codes; unclassified (1 source) Treatment not available; Translations: [Procedure and treatment not carried out for other reasons] 07-30-2023 Episodic Residual codes; unclassified (4 sources) History of right salpingo-oophorectomy ; Translations: [Acquired absence of other genital organ(s)] Onset: 08-10-2023 08-10-2023 Episodic Substance-related disorders (4 sources) Smoker; Translations: [Nicotine dependence, unspecified, uncomplicated] Onset: 06-16-2018 06-17-2018 Chronic Substance-related disorders (1 source) Sedative, hypnotic or anxiolytic dependence with withdrawal, unspecified; Translations: [Sedative, hypnotic or anxiolytic dependence with withdrawal, unspecified] Onset: 10-11-2018 Unclassified (1 source) Unspecified ovarian cyst, unspecified side; Translations: [Unspecified ovarian cyst, unspecified side] Onset: 06-07-2018 Unclassified (2 sources) Unspecified ovarian cyst, right side; Translations: [Unspecified ovarian cyst, right side] Onset: 01-16-2018 Past or Other Problems Problem Classification Problem Date Documented Da te Episodic/Chronic Biliary tract disease (3 sources) Gallstone; Translations: [Calculus of gallbladder without cholecystitis without obstruction] Onset: 01-05-2007 01-05-2007 Episodic Gastrointestinal hemorrhage (3 sources) Hematemesis; Translations: [Hematemesis] Onset: 06-16-2018 06-17-2018 Episodic Other gastrointestinal disorders (3 sources) Pelvic mass; Translations: [Intra-abdominal and pelvic swelling, mass and lump, unspecified site] Onset: 06-10-2018 06-17-2018 Episodic Urinary tract infections (2 sources) Acute cystitis with hematuria; Translations: [Tubulo-interstitia l nephritis, not specified as acute or chronic] Onset: 04-30-2018 Episodic Results Test Name Value Interpretation Reference Range Facil ity Encounters Encounter Date Encounter Type Care Provider Facility Start: 11-29-2023 End: 11-29-2023 Emergency department patient visit LAINE BUTCHER [facility] Start: 08-21-2023 Jael Arias APRN.FILM OR VIDEOTAPE EDITOR Work Phone: Gynecology Procedures Date Procedure Procedure Detail Performing Clinician Start: 11-29-2023 Urinalysis KAT ZAMBRANO Plan of Treatment Date Care Activity Detail Author Start: 02-15-2036 Shingles (RZV) Vaccine (1 of 2) Shingles (RZV) Vaccine (1 of 2) [facility] Start: 08-10-2023 End: 08-10-2024 PELVIC US WHI PELVIC US I Anc Imaging Routine History of right salpingo-oophorectomy 05/2018 for adnexal mass (benign, endometriosis) Cyst of left ovary Endometriosis determined by laparoscopy Pelvic pain in female Expected: 08/10/2023, Expires: 08/10/2024 [facility] Work Phone: Immunizations Immunization Date Immunization Notes Care Provider Malini hughes 06-14-2018 influenza, injectabl e, quadrivalent, preservative free Chadwick Bordonaro PA-C Work Phone: [facility] Work Phone: 06-14-2018 influenza virus vaccine, unspecified formulation Chadwick Bordonaro PA-C Work Phone: [facility] Payers Date Payer Category Payer Medicaid [id number] 2021 Medicaid [id number] 2016 Unknown [id number] 1986 Unknown [id number] 2.16. [id number] 1986 Unknown [id number] 2.16. [id number] 1986 Unknown [id number] 2.16. [id number] 1985 Unknown [id number] 2.16. [id number] 1986 Unknown [id number] 2.16.8 [id number] 1986 Unknown [id number] 2.16.8 [id number] 1986 Unknown [id number] 2.16.84 [id number] 1986 Unknown [id number] 2.16.84 [id number] 1985 Unknown [id number] 2.16.84 [id number] Social History Date Type Detail Facility Tobacco smoking status [facility] Tobacco smoking consumption unknown [facility] Start: 1985 Sex Assigned At Not on file M [facility] Tobacco smoking status DEIS Smokes tobacco daily [facility] Work Phone: History of tobacco use Cigarette Smoker [facility] Start: 06-11-2018 End: 08-10-2023 Alcohol intake Current non-drinker of alcohol (finding) [facility] Start: 04-24-2019 End: 08-10-2023 History of Social function [facility] Start: 04-24-2019 End: 08-10-2023 Tobacco use panel [facility] National Score (1-100), lower number is lower risk 75 [facility] Progress note 08-10-2023 Note Date & Type Note Facility 08-10-2023 Note HNO ID: [id number] Author: Jacqueline Arias APRN.FILM OR VIDEOTAPE EDITOR Service: ? Author Type: Nurse Practitioner Type: Progress Notes Filed: 08/10/2023 2:55 PM Note Text: [facility] Department of Benign Gynecology [facility] PATIENT NAME: Delia Merchant DATE: 08/10/2023 Patient Name and verified: Yes Patient Location: [place] This Virtual Visit was completed using My Chart Zoom platform. I have communicated my name and active licensure. The patient's identity and physical location were verified at the time of this visit. Either the patient or their legal sales representative public utilities has been informed of the risks and benefits of -- and alternatives to -- treatment through a remote evaluation and consents to proceed with the evaluation remotely. Chief Complaint CC/REASON FOR VIRTUAL VISIT: Ovarian cysts History of Present Illness: Delia is a 38 year old No obstetric history on file. who presents for a Distance Health visit to discuss ovarian cysts. Surgery in 06/10/[address] Soriano (Form Drafter Onc): PREOPERATIVE DIAGNOSIS: Right adnexal mass. POSTOPERATIVE DIAGNOSIS: Benign right adnexal mass. SURGEON: Cristhian Soriano M.D. OFFSET PRINTING PRESSMEN 1: Zoe Cast M.D. [employer] PRINTING PRESSMEN 2: Chaitanya Grady S.A. SURGERY/PROCEDURE: Laparoscopic RSO. ANESTHESIA: General. OPERATIVE INDICATIONS: The patient is a 33-year-old was transferred from an outside hospital with a pelvic mass, hematuria, and weight loss. Tumor markers were normal. She was seen by Urology and underwent a CT urogram, which was unremarkable. She does have an active urinary tract infection and they wished to delay cystoscopy. A plan for a laparoscopic RSO was made. Surgical Pathology (06/12/2018): FINAL DIAGNOSIS Right ovary and fallopian tube, salpingo-oophorectomy - Benign ovary with endometriosis and cystic follicles. - Benign fallopian tube with hydrosalpinx. ESTELAM/mehnazw 06/14/2018 Had ED Visit at OSH 07/27/2023 - [facility] Imaging Services [address] [place] [address] Transvaginal Non- MR#: [id number] Acct: [id number] Name: DELIA MERCHANT Rep #: [id number] : 1985 F 38 From: Nguyễn Rg MD PCP: Care Physician,No Primary Status: REG ER Study:Transvaginal Non- Date of Exam: 08/07/23 Exam# [id number] Ordering Dr: Te Rai MD STUDY: ULTRASOUND TRANSVAGINAL CLINICAL: Female, 38 years old. left ovarian cysts - increased pain TECHNIQUE: Transvaginal COMPARISON: CT 07/27/2023 FINDINGS: Normal uterine size measuring 7.9 x 5.1 x 3.7 cm in maximal craniocaudal dimension. There are no myometrial masses. Normal endometrial thickness measuring 6 mm. There are no endometrial masses, and there is no fluid in the endometrial cavity. Normal uterine cervix. Normal right ovary, measuring 2.7 x 1.8 x 1.1 cm. There are multiple follicles without a dominant cyst. Normal left ovary, measuring 2.8 x 2.0 x 2.2 cm. There are multiple follicles without a dominant cyst. There is no free fluid in the pelvis. Polycystic ovary disease: No. US/Transvaginal Non- IMPRESSION: Normal transvaginal pelvic ultrasound. Electronically Signed: Pato Rg MD at 13:29 EST , CC: Dr. Tracie Rai MD; No Primary Care Physician ~ Reports she has a lot of mental issues Was in group home for 3 months. Is having trouble finding a provider to fill her xanax Menses: reports 2 per month Was advised by OSH the second period is likely due to where cysts rupture and resolve Contraception: none Last Pap: unsure HPV: unsure History of abnormal pap: No Sexually active: Yes Current method of control: none Methods tried previously / dates used: none -currently ? No - <6 wks and breast feeding? No -smoker (>15 cig/day+>35yo) Yes -migraine with aura? No -ischemic heart disease? No -previous stroke/VTE, family hx of these? Yes - she is unsure where her clot was, was put on baby ASA and advised to take it for the rest of her life -complicated valve disease (afib,endocarditis,pulm htn)? No -systemic lupus erythematosus (SLE)? No -If yes, antiphospholipid bodies? Not Applicable -poorly controlled HTN (or end-organ damage)? No -poorly controlled DM (or end-organ damage)? No -undiagnosed uterine bleeding? No -hx of estrogen dependant tumor? No -anticonvulsant therapy? No -liver dz? No -planned major surgery with immobilization? No -elevated triglycerides? No -Aakash's disease?: No -Ectopic ?: No OB History No obstetric history on file. Form Drafter History LMP: Having periods Age at Menarche: Age at First : Age at Menop (more content not included)... [facility] History of Present illness Narrative 08-10-2023 Jacqueline Arias APRN.FILM OR VIDEOTAPE EDITOR - 08/10/2023 2:30 PM EST Note Date & Type Note Facility 08-10-2023 History of Presen t illness Narrative Images from the original note were not included. [facility] Department of Benign Gynecology [facility] PATIENT NAME: Delia Merchant DATE: 08/10/2023 Patient Name and verified: Yes Patient Location: [place] This Virtual Visit was completed using My Chart Zoom platform. I have communicated my name and active licensure. The patient's identity and physical location were verified at the time of this visit. Either the patient or their legal sales representative public utilities has been informed of the risks and benefits of -- and alternatives to -- treatment through a remote evaluation and consents to proceed with the evaluation remotely. Chief Complaint CC/REASON FOR VIRTUAL VISIT: Ovarian cysts History of Present Illness: Delia is a 38 year old No obstetric history on file. who presents for a Distance Health visit to discuss ovarian cysts. Surgery in 06/10/[address] Soriano (Form Drafter Onc): PREOPERATIVE DIAGNOSIS: Right adnexal mass. POSTOPERATIVE DIAGNOSIS: Benign right adnexal mass. SURGEON: Cristhian Soriano M.D. OFF[employer] PRINTING PRESSMEN 1: Zoe Cast M.D. [employer] PRESSMEN 2: Chaitanya Grady S.A. SURGERY/PROCEDURE: Laparoscopic RSO. ANESTHESIA: General. OPERATIVE INDICATIONS: The patient is a 33-year-old was transferred from an outside hospital with a pelvic mass, hematuria, and weight loss. Tumor markers were normal. She was seen by Urology and underwent a CT urogram, which was unremarkable. She does have an active urinary tract infection and they wished to delay cystoscopy. A plan for a laparoscopic RSO was made. Surgical Pathology (06/12/2018): FINAL DIAGNOSIS Right ovary and fallopian tube, salpingo-oophorectomy - Benign ovary with endometriosis and cystic follicles. - Benign fallopian tube with hydrosalpinx. ESTELAM/mehnazw 06/14/2018 Had ED Visit at OSH 07/27/2023 - [facility] Imaging Services [address] [place] [address] Transvaginal Non- MR#: [id number] Acct: [id number] Name: DELIA MERCHANT Rep #: [id number] : 1985 F 38 From: Nguyễn Rg MD PCP: Care Physician,No Primary Status: REG ER Study:Transvaginal Non- Date of Exam: 08/07/23 Exam# [id number] Ordering Dr: Te Rai MD 94 STUDY: ULTRASOUND TRANSVAGINAL CLINICAL: Female, 38 years old. left ovarian cysts - increased pain TECHNIQUE: Transvaginal COMPARISON: CT 07/27/2023 FINDINGS: Normal uterine size measuring 7.9 x 5.1 x 3.7 cm in maximal craniocaudal dimension. There are no myometrial masses. Normal endometrial thickness measuring 6 mm. There are no endometrial masses, and there is no fluid in the endometrial cavity. Normal uterine cervix. Normal right ovary, measuring 2.7 x 1.8 x 1.1 cm. There are multiple follicles without a dominant cyst. Normal left ovary, measuring 2.8 x 2.0 x 2.2 cm. There are multiple follicles without a dominant cyst. There is no free fluid in the pelvis. Polycystic ovary disease: No. US/Transvaginal Non- IMPRESSION: Normal transvaginal pelvic ultrasound. Electronically Signed: Pato Rg MD at 13:29 EST , CC: Dr. Tracie Rai MD; No Primary Care Physician ~ Reports she has a lot of mental issues Was in group home for 3 months. Is having trouble finding a provider to fill her xanax Menses: reports 2 per month Was advised by OSH the second period is likely due to where cysts rupture and resolve Contraception: none Last Pap: unsure HPV: unsure History of abnormal pap: No Sexually active: Yes Current method of control: none Methods tried previously / dates used: none -currently ? No - <6 wks and breast feeding? No -smoker (>15 cig/day+>35yo) Yes -migraine with aura? No -ischemic heart disease? No -previous stroke/VTE, family hx of these? Yes - she is unsure where her clot was, was put on baby ASA and advised to take it for the rest of her life -complicated valve disease (afib,endocarditis,pulm htn)? No -systemic lupus erythematosus (SLE)? No -If yes, antiphospholipid bodies? Not Applicable -poorly controlled HTN (or end-organ damage)? No -poorly controlled DM (or end-organ damage)? No -undiagnosed uterine bleeding? No -hx of estrogen dependant tumor? No -anticonvulsant therapy? No -liver dz? No -planned major surgery with immobilization? No -elevated triglycerides? No -Aakash's disease?: No -Ectopic ?: No OB History No obstetric history on file. Form Drafter History LMP: Having periods Age at Menarche: Age at First : Age at Menopause: Form Drafter History Comments: Sexual Activity: Yes; Male Contraception: Pill Past Medical History: PAST MEDICAL HISTORY Diagnosis Date Bipolar disease, manic (HCC) Borderline personality disorder (HCC) Generalized anxiety disorder Insomnia OCD (obsessive compulsive disorder) Sleep paralysis Family History: No family history on file. Past Surgical History: PAST SURGICAL HISTORY Procedure Laterality Date APPENDECTOMY LAPS SURG CHOLECYSTECTOMY W/CHOLANGIOGRAPHY 01/16/2007 Normal IOC MIDLINE INSERTION/CONSULT 06/11/2018 SALPINGO-OOPHORECTOMY Right 06/10/2018 TONSILLECTOMY PRIMARY/SECONDARY <AGE 13 Tonsillectomy Social History: Social History Tobacco Use Smoking status: Every Day Packs/day: 0.50 Years: 13.00 Additional pack years: 0.00 Total pack years: 6.50 Types: Cigarettes Substance Use Topics Alcohol use: No Drug use: No Allergies: ALLERGIES Allergen Reactions Naproxen Hives Toradol [Ketorolac] Swelling Allergies updated: Yes Medications: Current Outpatient Medications Medication Sig norethindrone (AYGESTIN) 5 mg tablet Take 1 tablet by mouth once daily. acetaminophen (TYLENOL) 325 mg tablet 2 tablets by ORAL/FEEDING TUBE route every 4 hours as needed. pantoprazole DR (PROTONIX) 40 mg tablet Take 1 tablet by mouth once daily. ondansetron orally disintegrating (ZOFRAN ODT) 4 mg disintegrating tablet Take 1 tablet by mouth every 6 hours as needed. ALPRAZolam (XANAX) 1 mg tablet Take 1 mg by mouth three times daily as needed for Anxiety. varenicline (CHANTIX) 0.5 mg tablet Take 0.5 mg by mouth twice daily. nicotine (NICODERM) 21 mg/24 hr Apply 1 Patch as directed once daily. buPROPion XL (WELLBUTRIN XL) 150 mg 24 hr tablet Take 150 mg by mouth twice daily. No current facility-administered medications for this visit. Medications reviewed in detail and updated PRN. Yes Physical Exam: VS: not taken General Appearance: 38 year old female in no apparent distress; not ill or toxic appearing HEENT normal facies, no self-reported vision or hearing impairment, normal speech CHEST normal speech pace and normal respiratory effort Extremities: no self-reported swelling or edema Recent labs/Diagnostic studies: I have thoroughly reviewed this patients previous notes, encounters, labs, and results prior to this visit. Assessment and Plan Encounter Diagnosis ICD-10-CM 1. History of right salpingo-oophorectomy 05/2018 for adnexal mass (benign, endometriosis) Z90.79 PELVIC US WHI Z90.721 CONSULT TO MINIMALLY INVASIVE GYNECOLOGIC SURGERY norethindrone (AYGESTIN) 5 mg tablet 2. Endometriosis determined by laparoscopy N80.9 PELVIC US WHI CONSULT TO MINIMALLY INVASIVE GYNECOLOGIC SURGERY norethindrone (AYGESTIN) 5 mg tablet 3. Cyst of left ovary N83.202 PELVIC US WHI CONSULT TO MINIMALLY INVASIVE GYNECOLOGIC SURGERY norethindrone (AYGESTIN) 5 mg tablet 4. Pelvic pain in female R10.2 PELVIC US WHI CONSULT TO MINIMALLY INVASIVE GYNECOLOGIC SURGERY norethindrone (AYGESTIN) 5 mg tablet 5. Tobacco use disorder F17.200 1) Plan for repeat US at [facility]. Pt is s/p RSO, OSH US noted normal right ovary on recent US. No cysts noted on recent US, but patient reports cysts are coming and resolving day to day. 2) We discussed vomiting blood is not a HEAD BUCKER symptom and that she needs to finish GI evaluation before meeting with GI surgeon 3) Reviewed I am unsure if surgery is indicated. Reviewed the benefits of preserved ovarian function on brain, bone and cardiovascular health. Discussed surgery may not be warranting especially as there is a chance her symptoms are not related to cysts and would not improve with surgery 4) She will schedule MIGS consult after pelvic US. Should be with an MD. Reviewed she should not see surgeon until after GI workup complete/plan in place 5) Discussed optoins for managing current ?pelvic pain, ?ovarian cysts. She does use tobacco daily. Start Aygestin 5mg daily. Discussed R/B/A, side effects and how to take. Reviewed not FDA approved for contraception and she should use condoms to prevent unplanned if she is sexually active The following approved medication requests have been transmitted electronically. Requested Prescriptions Signed Prescriptions Disp Refills norethindrone (AYGESTIN) 5 mg tablet 30 tablet 11 Sig: Take 1 tablet by mouth once daily. Pharmacy Information [place] [address] SIGNATURE: Jacqueline Arias APRN.BETTE PAGER: [phone] Medical Decision Making: Problems: Moderate: New problem with uncertain prognosis Data: Unique source(s) for external note(s) reviewed: 2 Unique test result(s) reviewed: 1 Unique test(s) ordered: 1 Risk: Moderate: Drug management Medical Decision Making Level: 4 - Moderate documented in this encounter [facility] Progress note 07-30-2023 Note Date & Type Note Facility 07-30-2023 Note HNO ID: [id number] Author: Chadwick Potter PA-C Service: ? Author Type: Physician Audio Visual Production Specialist Type: Progress Notes Filed: 07/30/2023 7:42 AM Note Text: This is an Express Care eVisit note for Delia Merchant eVisit/Questionnaire reviewed The chief complaint for the visit - Patient presents with: Back Pain Recommendations/Treatment plan - See My Chart Message to patient Chadwick Potter PA-C [facility] History of Present illness Narrative 07-30-2023 Chadwick Potter PA-C - 07/30/2023 7:41 AM EDT Note Date & Type Note Facility 07-30-2023 History of Presen t illness Narrative This is an Express Care eVisit note for Delia Merchant eVisit/Questionnaire reviewed The chief complaint for the visit - Patient presents with: Back Pain Recommendations/Treatment plan - See My Chart Message to patient Chadwick Potter PA-C documented in this encounter [facility] Evaluation note 05-27-2018 Note Date & Type Note Facility documented in this encounter [facility] Evaluation note 05-27-2018 Note Date & Type Note Facility documented in this encounter [facility] [facility] Evaluation note Note Date & Type Note Facility documented in this encounter [facility] Summary Purpose Family History No Family History Records FoundNo Family History Records FoundNo Family History Records FoundNo Family History Records FoundNo Family History Records Found Advance Directives No Advanced Directives Records FoundDocuments on File Type Date Recorded Patient Mine Development Engineer Expl anation Advance Directive(s) 06/14/2018 9:00 PM Documents on File Type Date Recorded Patient Mine Development Engineer Expl anation Advance Directive(s) 06/14/2018 9:00 PM Reason for Referral Specialty Diagnoses / Procedures Referred By Vincent prakash Referred To Contact Diagnoses History of right salpingo-oophorectomy Cyst of left ovary Endometriosis determined by laparoscopy Pelvic pain in female Procedures CONSULT TO MINIMALLY INVASIVE GYNECOLOGIC SURGERY OFFICE/OUTPATIENT [facility] 60-74 MINUTES Jacqueline Arias, PASTORA.FILM OR VIDEOTAPE EDITOR [address] [place] [address] Referral ID Status Reason Start Date Expiration Date Visits Requested Visits Authorized [id number] Authorized PCP Requested Referral Auto-Generate d Referral 3 08/09/2024 1 1 Specialty Diagnoses / Procedures Referred By Vincent prakash Referred To Contact [facility] Diagnoses History of right salpingo-oophorectomy Cyst of left ovary Endometriosis determined by laparoscopy Pelvic pain in female Procedures PELVIC US WHI US PELVIC NONOBSTETRIC REAL-TIME IMAGE COMPLETE Jacqueline Arias, TALLOW REFINER.FILM OR VIDEOTAPE EDITOR [address] [place] [address] [facility] [address] [place] [address] Referral ID Status Reason Start Date Expiration Date Visits Requested Visits Authorized [id number] Pending Review Auto-Generat ed Referral 3 08/09/2024 1 1 Additional Source Comments INFORMATION SOURCE (unrecogn ized section and content) DATE CREATED AUTHOR AUTHOR'S ORGANIZ ATION 10/17/2018 [facility] DATE CREATED AUTHOR AUTHOR'S ORGANIZ ATION 01/07/2023 [facility] DATE CREATED AUTHOR AUTHOR'S ORGANIZ ATION 12/03/2023 [facility] DATE CREATED AUTHOR AUTHOR'S ORGANIZ ATION 12/03/2023 [facility] Source Comments (unrecognize d section and content) In the event this informatio n is protected by the Federal Confidentiality of Alcohol and Drug Abuse Patient Records regulations: The Federal rules restrict any use of the information to criminally investigate or prosecute any alcohol or drug abuse patient.[facility] the event this information is protected by the Federal Confidentiality of Alcohol and Drug Abuse Patient Records regulations: The Federal rules restrict any use of the information to criminally investigate or prosecute any alcohol or drug abuse patient.[facility] the event this information is protected by the Federal Confidentiality of Alcohol and Drug Abuse Patient Records regulations: The Federal rules restrict any use of the information to criminally investigate or prosecute any alcohol or drug abuse patient.[facility] Reason for Visit (unrecogniz ed section and content) Reason Comments Pelvic Pain Reason Onset Date Comments Refill Request 08/21/2023 Care Teams (unrecognized sec tion and content) Silver Solderer Relationship Specialty [place] [address] [place] [phone] PCP - General Family Medicine 06/11/18 Silver Solderer Relationship Specialty Start Date End Date Vanessa Garcia MD [address] [place] [id number] PCP - General Family Medicine 06/11/18 FOR RECORDS PERTAINING TO PATIENTS WHO ARE OR HAVE BEEN ENROLLED IN A CHEMICAL DEPENDENCY/SUBSTANCEABUSE PROGRAM, SOME INFORMATION MAY BE OMITTED. This clinical summary was aggregated from multiple sources. Caution should be exercised in using it in the provision of clinical care. This summary normalizes information from multiple sources, and as a consequence, information in this document may materially change the coding, format and clinical context of patient data. In addition, data may be omitted in some cases. CLINICAL DECISIONS SHOULD BE BASED ON THE PRIMARY CLINICAL RECORDS. [facility] [employer] [facility]. provides no warranty or guarantee of the accuracy or completeness of information in this document.
--- NOTE | 2023-12-04 03:12 | ED.RN ---
pt informed Dr. Dhaliwal that only one iv attempt. this nurse attempted to LAC and no success. Dr. Dhaliwal informed of same.
== END 2023-12-04 03:41 | disposition home or self-care (01) ==
PROVIDERS: Emergency Provider Emergency Medicine; Visit Provider Emergency Medicine
DX: R10.9 Unspecified abdominal pain (principal); F31.9 Bipolar disorder, unspecified; F41.9 Anxiety disorder, unspecified; F17.210 Nicotine dependence, cigarettes, uncomplicated
CPT/HCPCS: 99283; A4216

== ENCOUNTER 2024-12-15 01:18 | Emergency (ER) | payer MEDICAID, SELFPAY ==
[2024-12-15 01:19] VITALS: BP 106/64; PULSE 72; RESP 16; TEMP 36.6; O2SAT 98; BMI 28.7
--- NOTE | 2024-12-15 02:02 | EDS_ITS ---
HPI History of Present Illness Chief Complaint: Dental Narrative Narrative: Chief complaint and HPI: Right upper dental pain. 39-year-old female with past medical history of OCD, bipolar, anxiety, depression, poor dentition presents for evaluation of right upper dental pain. Onset today. Patient states that she has not seen the dentist in a while. She states that she has poor dentition with multiple pulled teeth. She states today she developed right upper dental pain. She has taken Excedrin, Tylenol, aspirin for the pain. She denies any fever, chills, shortness of breath, chest pain, nausea, vomiting, neck pain. Denies any difficulty swallowing or speaking. Review of systems: See HPI Medications: As listed on the chart Allergies: As listed on the chart PFSH: Per chart Vital signs: As listed on the chart. Reviewed. Physical exam: Gen: A&O x3, NAD Head: Normocephalic, atraumatic Eyes: No sclera icterus, conjunctiva clear, PERRL, EOMI ENT: TMs clear BL, moist mucous membranes, posterior oropharynx unremarkable, uvula midline, tonsils not enlarged, no tonsillar exudates, poor dentition with multiple removed teeth and broken teeth, patient has right upper posterior gingival mild swelling-no abscess, no Anil angina, tolerating secretions, tongue nonenlarged, normal phonation Neck: Trachea midline, No JVD, Full ROM, No meningismus no swelling, no lymphadenopathy CV: RRR, no murmurs, no peripheral edema Resp: Lungs CTA BL, no w/r/c Skin: Warm, dry, no rash Neuro: Alert, oriented, grossly intact, sensation intact Psych: Cooperative, appropriate mood and affect [facility] Medical History Anxiety Bipolar disorder Depression Insomnia OCD (obsessive compulsive disorder) Ovarian cyst Sleep paralysis Home Medications ?Medication ?Instructions ?Recorded ?Last Taken ?Type Abilify 10 mg PO DAILY 10/19/22 Unkn own History BuSpar 15 mg PO TID 10/19/22 Unknow n History trazodone 200 mg PO QHS 10/19/22 Unkno wn History hydrocodone-acetaminophen 5-325mg 1 tab PO Q6H PRN PRN Pain 2 days 06/26/23 Unknown Rx 5mg-325mg #8 TABLETS omeprazole magnesium 20 mg 40 mg (2 x 20 mg) PO DAILY #30 tabs 08/07/23 Unknown Rx tablet,delayed release (Prilosec OTC) ondansetron 4 mg disintegrating 4 mg PO Q8H PRN PRN Na usea #10 tabs 08/07/23 Unknown Rx tablet bupropion HBr 174 mg 174 mg PO DAILY 12/04/23 Unk nown History tablet,extended release 24 hr guanfacine 1 mg tablet,extended 1 mg PO DAILY 12/04/23 Unknown History release 24 hr lamotrigine 25 mg tablet 25 mg PO Q12H 12/04/23 Unkno wn History quetiapine 200 mg tablet 200 mg PO QHS 12/04/23 Unkno wn History quetiapine 300 mg tablet 300 mg PO QHS 12/04/23 Unkno wn History sertraline 100 mg tablet 100 mg PO DAILY 12/04/23 Unk nown History amoxicillin 875 mg-potassium 1 tab PO BID 7 days #14 t abs 12/15/24 Unknown Rx clavulanate 125 mg tablet Allergy/AdvReac Type Severity Reaction Status Date / Time ketorolac (From Toradol) Allergy Anaphylaxis Verified 12/15/24 01:19 naproxen Allergy Anaphylaxis Verified 12/15/24 01:19 Social History household members: children Smoking Status: Heavy Smoker (>10/day) alcohol intake: current EXAM Physical Exam Const Vital Signs: 12/15/24 01:19 12/15/24 02:08 Temperature 98 F 98 F Temperature Source Oral Pulse Rate 72 73 Respiratory Rate 6 L 18 Blood Pressure 106/64 117/78 Blood Pressure Mean 78 91 Pulse Ox 98 99 Oxygen Delivery Method Room Air MDM MDM MDM Narrative Medical decision making narrative: 39-year-old female with past medical history of OCD, bipolar, anxiety, depression, poor dentition presents for evaluation of right upper dental pain. Differential diagnosis includes but is not limited to dental infection, dental abscess. Not Anil angina. See physical exam. Patient has a dental infection. No dental abscess for incision and drainage. She was educated on ibuprofen and Tylenol as needed for pain. Ice. Orajel. Continue to brush teeth. Follow-up with her dentist. She was also given dental clinics. Return precautions explained. Given the first dose of Augmentin here with a one-time [place]. Patient did not drive. Patient given a 7-day course of Augmentin for dental infection. She confirmed understand the plan. Patient discharged home. Impression: 1. Right upper dental infection Discharge Plan Triage Chief Complaint: Dental ED Provider: Spenser Lamb Dx/Rx/DC Orders Clinical Impression: Dental infection Instructions: ED Dental Pain Prescriptions: New amoxicillin-pot clavulanate 875-125 mg tablet 1 tab PO BID 7 Days Qty: 14 0RF No Action Abilify 10 mg PO DAILY BuSpar 15 mg PO TID trazodone 200 mg PO QHS hydrocodone-acetaminophen [hydrocodone-acetaminophen] 5-325 mg tablet 1 tab PO Q6H PRN PRN (Reason: Pain) 2 Days Qty: 8 0RF ondansetron 4 mg tablet,disintegrating 4 mg PO Q8H PRN PRN (Reason: Nausea) Qty: 10 0RF omeprazole magnesium [Prilosec OTC] 20 mg tablet,delayed release (DR/EC) 40 mg PO DAILY Qty: 30 0RF guanfacine 1 mg tablet extended release 24 hr 1 mg PO DAILY quetiapine 300 mg tablet 300 mg PO QHS sertraline 100 mg tablet 100 mg PO DAILY quetiapine 200 mg tablet 200 mg PO QHS lamotrigine 25 mg tablet 25 mg PO Q12H bupropion HBr 174 mg tablet extended release 24 hr 174 mg PO DAILY Primary Care Provider: Care Physician,No Primary Referrals: Care Physician,No Primary [Primary Care Provider] - Dentist,Your [STAFF PHYSICIAN] - 3-5 Days Activity Restrictions/Additional Instructions: Follow-up with dentist. Ibuprofen and Tylenol as needed for pain. Ice. Orajel. Continue to brush her teeth. Take your second dose of antibiotics this evening as you received your first dose here. Print Language: Ukrainian Disposition Disposition: Home, Self Care Discharge Date/Time: 12/15/24 02:10
[2024-12-15] MEDS: Amox/Clavulanate 875 MG Tablet PO (02:07)
[2024-12-15] MEDS: HYDROcodone Bitartrate/Apap 5/325 Tablet PO (02:07)
[2024-12-15 02:08] VITALS: BP 117/78; PULSE 73; RESP 18; TEMP 36.6; O2SAT 99
== END 2024-12-15 02:10 | disposition home or self-care (01) ==
LOC: ED 02:09
PROVIDERS: Emergency Provider Surgery; Visit Provider Surgery
DX: K04.7 Periapical abscess without sinus (principal); F31.9 Bipolar disorder, unspecified; F41.9 Anxiety disorder, unspecified; F17.200 Nicotine dependence, unspecified, uncomplicated; Z79.899 Other long term (current) drug therapy
CPT/HCPCS: 99284

== ENCOUNTER 2025-03-10 21:01 | Emergency (ER) | payer MEDICAID, SELFPAY ==
[2025-03-10 21:02] VITALS: BP 98/68; PULSE 102; RESP 18; TEMP 37.1; O2SAT 99; BMI 25.8
[2025-03-10 21:40] VITALS: O2SAT 96
--- NOTE | 2025-03-10 21:40 | EKG12_ITS ---
Test Reason : CP Blood Pressure : */* mmHG Vent. Rate : 98 BPM Atrial Rate : 98 BPM P-R Int : 230 ms QRS Dur : 74 ms QT Int : 324 ms P-R-T Axes : 60 5 51 degrees QTcB Int : 413 ms Sinus rhythm with 1st degree A-V block Possible Left atrial enlargement Septal infarct , age undetermined Abnormal ECG Confirmed by RIKY MONTEIRO, BRANDY ([id number]), editor sound GRICEL CHRISTIANSEN ([id number]) on 03/12/2025 7:37:51 AM Referred By: ZANDER Confirmed By: BRANDY LAN MD
--- NOTE | 2025-03-10 21:48 | RAD_ITS ---
PROCEDURE: CHEST 1 VIEW (PORTABLE) 03/10/2025 REASON FOR EXAM: CHEST PAIN TECHNIQUE: Frontal view of the chest. COMPARISON: 08/07/2023 FINDINGS: No focal consolidations. No pleural effusion or pneumothorax. Cardiac silhouette is unchanged. No acute fractures. RAD/Chest 1 View (Portable) IMPRESSION: No focal consolidations. Reading Location: [id number]
[2025-03-10 21:50] LABS: Absolute Lymphocyte Count 3.25 X10^3/uL (0.83-4.51); Absolute Neutrophil Count 7.8 X10^3/uL (2.0-7.7); Basophil# 0.11 X10^3/uL; Basophil% 0.8 % (0-1); Eosinophil# 0.23 X10^3/uL; Eosinophils% 1.7 % (0-5); Hematocrit 43.4 % (37-47); Hemoglobin 14.7 g/dL (12.0-15.0); Lymphocyte # 3.25 X10^3/ul (0.83-4.51); Lymphocyte % 24.7 % (19-41); Mean Corp Hgb Conc 33.9 g/dL (32-36); Mean Corpuscular Hgb 33.5 pg (27.0-32.0); Mean Corpuscular Volume 98.9 fL (81-99); Mean Platelet Vol. 10.5 fl (6.2-12.0); Monocyte% 11.4 % (0-10); NRBC Flagged by Analyzer 0 % (0-5); Neutrophil # 7.83 X10^3/uL (2.7-7.7); Neutrophil % 59.6 % (47-70); Platelet Count 422 K/mm3 (150-450); RBC Distribution Width CV 13.1 % (11.6-14.6); RBC Distribution Width SD 47.8 fl (35.1-43.9); Red Blood Count 4.39 M/mm3 (4.2-5.4); White Blood Count 13.2 K/mm3 (4.4-11.0)
[2025-03-10 22:01] VITALS: BP 114/68; PULSE 85; RESP 16; O2SAT 98
[2025-03-10 22:11] LABS: Troponin T High Sensitivity < 6 ng/L (<=14)
--- NOTE | 2025-03-10 22:24 | ED.VIS.CHEST ---
HPI History of Present Illness Chief Complaint: Chest Pain Informant: patient Onset/Context/Timing Onset: Today Activity at onset: gradual Timing: Continuous Quality: Positive for Sharp and Stabbing Location: Substernal Current Severity: Gone Maximum Severity: Mild Worsened By: Nothing Relieved By: Nothing Associated Symptoms: Positive for Nausea Narrative Narrative: 40-year-old female history of OCD, bipolar, anxiety and depression. Prior appendectomy and cholecystectomy also with a right ovarian resection. She is on a meeting said she started getting substernal sharp stabbing chest pain around 6 7:00. No associated shortness of breath. No recent exertional chest pain or dyspnea. No cardiac history. She also states show some mild left flank pain. Denies being . Denies dysuria. No fever. She is a history of ovarian cysts. Prior Similar Symptoms: Yes Recent Illness/Hospitalization: No CVD Risk Factors: Negative for Hypertension, Diabetes or Hypercholesterolemia PE Risk Factors: Negative for Recent Travel/Surgery, Recent Immobilization, Prior DVT or PE, Cancer or OCP + Smoking + >/=35 TAD Risk Factors: Negative for Marfan's Syndrome [facility] Medical History Insomnia OCD (obsessive compulsive disorder) Ovarian cyst Sleep paralysis Bipolar disorder Anxiety Depression Home Medications ?Medication ?Instructions ?Recorded ?Last Taken ?Type omeprazole magnesium 20 mg 40 mg (2 x 20 mg) PO DAILY #30 tabs 08/07/23 Unknown Rx tablet,delayed release (Prilosec OTC) bupropion HBr 174 mg 174 mg PO DAILY 12/04/23 Unknown History tablet,extended release 24 hr lithium carbonate 150 mg capsule 150 mg PO BID 03/10/25 Unknown History mirtazapine 30 mg tablet 30 mg PO QHS 03/10/25 Unknown History olanzapine 10 mg tablet 10 mg PO QHS 03/10/25 Unknown History oxcarbazepine 150 mg tablet 150 mg PO BID 03/10/25 Unknown History Allergy/AdvReac Type Severity Reaction Status Date / Time ketorolac (From Toradol) Allergy Anaphylaxis Verified 03/10/25 21:05 naproxen Allergy Anaphylaxis Verified 03/10/25 21:05 Social History household members: children Smoking Status: Heavy Smoker (>10/day) alcohol intake: current ROS ROS ED ROS Narrative Sharp chest pain tonight. Nausea. Left flank pain. Constitutional Constitutional ED: Denies chills or fever(s) Eyes Eyes: Reports none ENT ENT ED: Denies ear pain Cardiovascular Cardiovascular: Reports as per HPI and chest pain Respiratory/Chest Respiratory/Chest: Denies cough or dyspnea Gastrointestinal Gastrointestinal: Reports abdominal pain and nausea Genitourinary Genitourinary ED: Denies dysuria or hematuria Musculoskeletal Musculoskeletal: Denies arthralgias or back pain Integumentary Denies abscess or Abrasions Neurologic Neurologic: Denies headache(s) Psychiatric Psychiatric: Reports anxiety Endocrine Endocrinology: Denies cold intolerance or heat intolerance Hematologic/Lymphatic Hematologic/Lymphatic: Denies easy bleeding or easy bruising Allergic/Immunologic Allergic/Immunologic ED: Denies mouth swelling, tongue swelling or urticaria EXAM Physical Exam Narrative Exam Narrative: 40-year-old female vital signs are stable afebrile. Pulse ox 99% on room air no signs of hypoxia. She is in no distress. She is anxious. No one else present in the room. H EENT exam pupils round react to light. moist mucous membranes. Neck nontender. Back nontender. Lungs clear to auscultation bilaterally. Heart regular rhythm rate about 100 no murmur. Chest wall ribs nontender. Abdomen soft nondistended normal bowel sounds without peritoneal signs. Plan left flank pain minimal if any tenderness. Right upper right lower quadrant unremarkable. No hernia or mass. No distention or obstruction. Moving all 4 extremities. Nontender no edema. Normal range of motion. Normal strength. Neurologically she is awake alert. Answering questions following commands. Const Vital Signs: 03/10/25 21:02 03/10/25 21:05 03/10/25 21:40 Temperature 98.7 F Temperature Source Oral Pulse Rate 102 H Respiratory Rate 18 Respiratory Effort Normal Blood Pressure 98/68 Blood Pressure Mean 78 Pulse Ox 99 96 Oxygen Delivery Method Room Air Room Air 03/10/25 22:01 03/10/25 22:44 03/11/25 00:00 Temperature Temperature Source Pulse Rate 85 86 79 Respiratory Rate 16 19 H 16 Respiratory Effort Blood Pressure 114/68 108/60 91/62 Blood Pressure Mean 83 76 71 Pulse Ox 98 97 100 Oxygen Delivery Method Room Air Room Air Room Air 03/11/25 01:00 Temperature Temperature Source Pulse Rate 78 Respiratory Rate 18 Respiratory Effort Blood Pressure Blood Pressure Mean Pulse Ox 100 Oxygen Delivery Method Room Air Positive well nourished and well developed; Negative for cachectic, contractures or unkempt General Appearance ED: well developed and NAD; Negative for unkempt, cachectic, contractures or pallor Nutritional Appearance: Negative for cachectic HEENT Reports moist mucous membranes normocephalic and atraumatic Eyes PERRL and EOMs intact bilaterally General Eye ED: Negative for pale conjunctiva or scleral icterus Neck no lymphadenopathy, supple and no JVD Chest Wall inspection of chest normal and palpation of chest normal Resp normal respiratory effort and clear to auscultation bilaterally Effort and Inspection: Negative for respiratory distress Auscultation: Negative for rales, rhonchi or wheezes Cardio regular rate, regular rhythm, S1 normal heart sound, S2 normal heart sound and no murmurs Peripheral Pulses: pulses 2+ throughout GI normal to inspection, nondistended, normoactive bowel sounds, soft to palpation, non-tender, non-distended and no masses Back/Spine no CVA tenderness and no thoracic nor lumbar tenderness Extremity normal to inspection General Extremety ED: Negative for edema, pulses abnormal or tenderness General Extremity: Negative for edema or pulses abnormal Neuro oriented x3 and CN's II-XII intact bilaterally Sensorium / Orientation: awake, alert, oriented to person, oriented to place and oriented to time; Negative for confused, lethargic or stuporous Motor Exam: strength 5/5 throughout Psych mental status grossly normal Appearance: Negative for unkempt Attitude: No agitated Mood & Affect: anxious; Negative for depressed or tearful Skin no rashes or lesions noted and no wounds General Skin Exam: Negative for jaundice or pallor Rashes: No rashes noted Trauma: Negative for abrasion or laceration MDM MDM MDM Narrative Medical decision making narrative: 40-year-old female with atypical nonexertional noncardiac sounding chest pain. No history of DVT or PE risk factors. Also left flank pain there is is a very benign exam. Cardiac workup was already started by nursing protocol. Will also obtain a UA and serum test. She will be given Zofran for nausea. Repeat exam around 1:27 AM patient doing well. We discussed her test results. She will be discharged home. Outpatient follow-up. Motrin and Tylenol for pain. History & Record Review Discussion w/independent historian: Patient Lab Data Attestation: I reviewed the patient's lab results. Lab results narrative: CBC white count 13.2. H&H 14 and 43. Platelets 422. Chemistry shows sodium 139. Gap 13. BUN and creatinine of 20 and 0.8. Glucose 90. Initial troponin less than 6. 2-hour troponin less than 6. Serum test negative. UA no red cells. 10-25 white cells but is contaminated with 50-100 epithelial cells. No nitrates. That will not be treated. I think is all contaminant. She is not having any urinary symptoms. Labs: Laboratory Results - last 24 hr 03/10/25 03/10/25 03/10/25 20:50 22:27 22:39 WBC 13.2 H RBC 4.39 Hgb 14.7 Hct 43.4 MCV 98.9 MCH 33.5 H MCHC 33.9 RDW Std Deviation 47.8 H RDW Coeff of [place] 13.1 Plt Count 422 MPV 10.5 Immature Gran % (Auto) 1.800 H Neut % (Auto) 59.6 Lymph % (Auto) 24.7 [place] % (Auto) 11.4 H Eos % (Auto) 1.7 Baso % (Auto) 0.8 Absolute Neuts (auto) 7.8 H Absolute Lymphs (auto) 3.25 Nucleated RBC % 0 Sodium 139 Potassium 3.8 Chloride 105 Carbon Dioxide 20.9 L Anion Gap 13 BUN 20 H Creatinine 0.82 Estim Creat Clear Calc 87.45 Est GFR (MDRD) Non-Af 93 BUN/Creatinine Ratio 24.4 H Glucose 90 Calcium 9.5 Troponin T High Sens < 6 Troponin T Hi Sens 2 Hr < 6 Serum , Qual NEGATIVE Urine Color Yellow Urine Clarity Sl. Cloudy Urine pH 6.0 Ur Specific [place] 1.015 Urine Protein 30 H Urine Glucose (UA) Normal Urine Ketones Negative Urine Occult Blood 250 H Urine Nitrite Negative Urine Bilirubin Negative Urine Urobilinogen Normal Ur Leukocyte Esterase 25 H Urine RBC 0-5 SEEN Urine WBC 10-25 SEEN Ur Squamous Epith Cells 50-100 SEEN Urine Bacteria 2+ Urine Mucus RARE Chest x-ray, portable, single view interpreted by myself shows no acute abnormality. Normal cardiac silhouette mediastinum. Also read by radiologist agrees negative. Radiography Chest X-Ray - ED: Read by ED Physician, Read by Radiologist, Heart, Lungs, Mediastinum, Bony Structures, No Acute Disease and Chronic Changes Diagnostic Testing: Clinical Impression(s) from Imaging Studies Chest X-Ray 03/10/25 21:48 IMPRESSION: No focal consolidations. Reading Location: [facility] Chest x-ray,, single view, interpreted by myself and the radiologist shows no acute abnormality. Rhythm Strip Rhythm Strip: Sinus Rhythm Rate: 98 Ectopy: None EKG Initial EKG: Attestation: I personally reviewed and interpreted this EKG as follows: Interpretation: No Acute Injury Pattern Comments: Normal sinus rhythm rate of 98 no acute signs of NM or ischemia. Discharge Plan Triage Chief Complaint: Chest Pain ED Provider: Aníbal Minaya Dx/Rx/DC Orders Clinical Impression: Chest pain, Hx of bipolar disorder Instructions: ED Chest Pain, Uncertain Cause Prescriptions: No Action omeprazole magnesium [Prilosec OTC] 20 mg tablet,delayed release (DR/EC) 40 mg PO DAILY Qty: 30 0RF bupropion HBr 174 mg tablet extended release 24 hr 174 mg PO DAILY oxcarbazepine 150 mg tablet 150 mg PO BID olanzapine 10 mg tablet 10 mg PO QHS lithium carbonate 150 mg capsule 150 mg PO BID mirtazapine 30 mg tablet 30 mg PO QHS Primary Care Provider: Care Physician,No Primary Referrals: Care Physician,No Primary [Primary Care Provider] - Activity Restrictions/Additional Instructions: Follow-up with your doctor. Your test tonight all look good. Motrin Tylenol for any pain. Print Language: Peruvian Disposition Disposition: Home, Self Care
--- OUTSIDE RECORDS SUMMARY | 2025-03-10 22:29 | XMS RPT_ITS | CCD ---
Author Organization [facility] Care Team Providers Care Product Consultant Name Role Phone DAT HAYNES Unavailable Unavailable ICLI, VANESSA Unavailable Unavailable ICLI, VANESSA Unavailable Unavailable EDWIN TABARES Unavailable Unavailable ICLI, VANESSA Unavailable Unavailable FAUSTO PERALTA Attending Unavailable GEOFF GALLOWAY Attending Unavailable MIRNA ESCOTO Attending Unavailable ICLI, VANESSA Primary Care Unavailable ICLI, VANESSA Primary Care Unavailable DAT HAYNES Attending Unavailable KAT ZAMBRANO MD Attending Unavailable KAT ZAMBRANO MD Primary Care Unavailable KAT ZAMBRANO MD Admitting Unavailable Icli Vanessa MONTEIRO Primary Care Provider ICLI, VANESSA Primary Care Unavailable JACQUELINE ARIAS Attending Unavailable ICLI, VANESSA Primary Care Unavailable RICARDO CINDI E Attending Unavailable KATY PEDROZA CNP Consulting Unavailable KATY PEDROZA CNP Referring Unavailable RICARDO, CINDI E Admitting Unavailable RICARDO, CINDI E Primary Care Unavailable PROVIDER, UNKNOWN Consulting Unavailable PROVIDER, UNKNOWN Consulting Unavailable KATY PEDROZA CNP Consulting Unavailable BUTCHER, CHILANGO C Admitting Unavailable BUTCHER, CHILANGO C Primary Care Unavailable BUTCHER, CHILANGO C Attending Unavailable PROVIDER, UNKNOWN Consulting Unavailable PROVIDER, UNKNOWN Consulting Unavailable AMICONE, ELKIN RESEARCH SCHOLAR Admitting Unavailable AMICONE, ELKIN RESEARCH SCHOLAR Primary Care Unavailable AMICONE, ELKIN RESEARCH SCHOLAR Attending Unavailable KATY PEDROZA CNP Consulting Unavailable PROVIDER, UNKNOWN Consulting Unavailable PROVIDER, UNKNOWN Consulting Unavailable Care Physician, No Primary Primary Care Provider Unavailable Dr. Spenser Lamb DO Emergency Provider Care Physician, No Primary Primary Care Unava ilable Spenser Lamb Attending Unavailabl e Allergies Allergy Classification Reported Allergen(s) Allergy Type Date of Onset Reaction(s) Facility (12 sources) Ketorolac; Translations: [KETOROLAC] Drug Allergy 8 Swelling [facility] (12 sources) Naproxen; Translations: [NAPROXEN] Drug Allergy 8 Hives [facility] (2 sources) Adhesive agent; Translations: [ADHESIVE] Propensity to adverse reactions (disorder) [facility] Repository (2 sources) ARIPiprazole Drug Allergy [facility] (2 sources) Ketorolac Drug Allergy [facility] (2 sources) Naproxen Drug Allergy [facility] (1 source) Ketorolac Drug Allergy 5 [facility] (1 source) Naproxen Drug Allergy 5 [facility] Medications Current Medications Medication Drug Class(es) Dates Sig (Normalized) Sig (Original) acetaminophen 325 mg / HYDROcodone bitartrate 5 mg oral tablet (6 sources) Opioid Agonist Start: 06-26-2023 take 1 tablet by mouth every six hours as needed for pain Hydrocodone-Aceta minophen 5-325 mg tablet Active 1 {tbl} PO EVERY 6 HOURS NEEDED as needed for Pain 8 June 26, 2023 Start: 06-26-2023 take 1 tablet by malu th every six hours as needed Hydrocodone-Acetaminophen Active 1 TABLE T PO EVERY 6 HOURS NEEDED 8 June 26, 2023 amoxicillin 875 mg / clavulanate 125 mg oral tablet (1 source) Penicillin-class Antibacterial Start: 12-15-2024 Amoxicillin-Pot Clavulanate 875-125 mg tablet Active 1 {tbl} PO TWICE A DAY 14 December 15, 2024 12:00am ARIPiprazole 10 mg oral tablet (8 sources) Atypical Antipsychotic Start: 10-19-2022 take 10 mg by mouth once daily Abilify Active 10 mg PO DAILY October 19, 2022 1:00am Start: 10-19-2022 Abilify Active October 19, 2022 1:00am Start: 10-19-2022 Abilify Active October 19, 2022 12:00am 24 hr buPROPion hydrobromide 174 mg extended release oral tablet (4 sources) Aminoketone Start: 12-04-2023 take 1 tablet by mouth once daily, then take 1 tablet by mouth every twenty-four hours Bupropion Hbr 174 mg tablet extended release 24 hr Active 174 mg PO DAILY December 04, 2023 1:00am Start: 04-18-2018 End: 08-10-2023 take 1 tablet by mouth twice daily buPROPion XL (WELLBUTRIN XL) 150 mg 24 hr tablet Take 150 mg by mouth twice daily. 2 04/18/2018 08/10/2023 Discontinued Comment on above: Take 150 mg by mouth twice daily. busPIRone hydrochloride 15 mg oral tablet (8 sources) Start: 10-19-2022 take 15 mg by mouth three times daily BuSpar Active 15 mg PO THREE TIMES A DAY October 19, 2022 1:00am Start: 10-19-2022 BuSpar Active October 19, 2022 1:00am Start: 10-19-2022 BuSpar Active October 19, 2022 12:00am 24 hr guanFACINE 1 mg extended release oral tablet (2 sources) Central alpha-2 Adrenergic Agonist Start: 12-04-2023 take 1 tablet by mouth once daily Guanfacine 1 mg tablet extended release 24 hr Active 1 mg PO DAILY December 04, 2023 1:00am lamoTRIgine 25 mg oral tablet (2 sources) Mood Stabilizer, Anti-epileptic Agent Start: 12-04-2023 take 1 tablet by mouth every twelve hours Lamotrigine 25 mg tablet Active 25 mg PO Q12H December 04, 2023 1:00am omeprazole 20 mg delayed release oral tablet (4 sources) Proton Pump Inhibitor Start: 08-07-2023 Omeprazole Magnesium (Prilosec Otc) 20 mg tablet,delayed release (DR/EC) Active 40 mg PO DAILY August 07, 2023 1:00am QUEtiapine 300 mg oral tablet (4 sources) Atypical Antipsychotic Start: 12-04-2023 take 1 tablet by mouth at bedtime Quetiapine 300 mg tablet Active 300 mg PO AT BEDTIME December 04, 2023 1:00am Start: 12-04-2023 take 1 tablet by malu th at bedtime Quetiapine 200 mg tablet Active 200 mg PO AT BEDTIME December 04, 2023 1:00am sertraline 100 mg oral tablet (2 sources) Serotonin Reuptake Inhibitor Start: 12-04-2023 take 1 tablet by mouth once daily Sertraline 100 mg tablet Active 100 mg PO DAILY December 04, 2023 1:00am traZODone (8 sources) Serotonin Reuptake Inhibitor Start: 10-19-2022 take 200 mg by mouth at bedtime trazodone Active 200 mg PO AT BEDTIME October 19, 2022 1:00am Start: 10-19-2022 take 200 mg by mouth at bedtim e trazodone Active 200 MG PO AT BEDTIME October 19, 2022 1:00am Start: 10-19-2022 trazodone Acti ve October 19, 2022 1:00am Start: 10-19-2022 trazodone Acti ve October 19, 2022 12:00am Completed/Discontinued Medications Medication Drug Class(es) Dates Sig (Normalized) Sig (Original) acetaminophen 325 mg oral tablet (3 sources) Start: 06-17-2018 take 2 tablets enteral route every four hours as needed acetaminophen (TYLENOL) 325 mg tablet 2 tablets by ORAL/FEEDING TUBE route every 4 hours as needed. 30 tablet 0 06/17/2018 Active Comment on above: 2 tablets by ORAL/FE EDING TUBE route every 4 hours as needed. acetaminophen 325 mg / oxyCODONE hydrochloride 5 mg oral tablet (16 sources) Opioid Agonist Start: 08-07-2023 End: 12-04-2023 Oxycodone-Acetamino phen (Percocet) 5-325 mg tablet Discontinued 1 {tbl} PO Q8H as needed for pain 10 August 07, 2023 December 04, 2023 2:20am Start: 07-28-2023 End: 12-04-2023 Oxycodone-Acetaminophen (Per cocet) 5-325 mg tablet Discontinued 1 {tbl} PO EVERY 6 HOURS as needed for pain 12 July 28, 2023 December 04, 2023 2:20am Start: 06-21-2023 End: 06-26-2023 Oxycodone-Acetaminophen (Per cocet) 5-325 mg tablet Discontinued 1 {tbl} PO EVERY 6 HOURS as needed for pain 08 28June 21, 2023 June 26, 2023 7:25am ALPRAZolam 1 mg oral tablet (3 sources) Benzodiazepine Start: 06-05-2018 take 1 tablet by mouth every eight hours as needed ALPRAZolam (XANAX) 1 mg tablet Take 1 mg by mouth three times daily as needed for Anxiety. 0 06/05/2018 Active Comment on above: Take 1 mg by mouth t hree times daily as needed for Anxiety. cephalexin 500 mg oral capsule (8 sources) Cephalosporin Antibacterial Start: 10-19-2022 End: 06-26-2023 take 1 capsule by mouth every six hours Cephalexin 500 mg capsule Discontinued 500 mg PO EVERY 6 HOURS October 19, 2022 1:00am June 26, 2023 7:25am doxycycline monohydrate 100 mg oral capsule (6 sources) Tetracycline-class Drug Start: 06-26-2023 End: 12-04-2023 take 1 capsule by mouth twice daily Doxycycline Monohydrate 100 mg capsule Discontinued 100 mg PO TWICE A DAY June 26, 2023 12:00am December 04, 2023 2:19am 24 hr nicotine 0.875 mg/hr transdermal system (3 sources) Cholinergic Nicotinic Agonist Start: 03-02-2018 apply 1 dose transdermal route once daily nicotine (NICODERM) 21 mg/24 hr Apply 1 Patch as directed once daily. 1 03/02/2018 Active Comment on above: Apply 1 Patch as dir ected once daily. norethindrone acetate 5 mg oral tablet (2 sources) Start: 08-10-2023 take 1 tablet by mouth once daily norethindrone (AYGESTIN) 5 mg tablet Indications: History of right salpingo-oophorec ines , Cyst of left ovary , Pelvic pain in female , Endometriosis determined by laparoscopy Take 1 tablet by mouth once daily. 30 tablet 11 08/10/2023 Active Comment on above: Take 1 tablet by malu once daily. ondansetron 4 mg disintegrating oral tablet (15 sources) Serotonin-3 Receptor Antagonist Start: 08-07-2023 End: 12-04-2023 take 1 tablet by mouth every eight hours as needed for nausea Ondansetron 4 mg tablet,disintegra ting Discontinued 4 mg PO EVERY 8 HOURS NEEDED as needed for Nausea August 13, 2023 1:00am December 04, 2023 2:20am Start: 07-28-2023 End: 12-04-2023 take 1 tablet by mouth three times daily as needed for nausea and vomiting Ondansetron 4 mg tablet,disintegrating Discontinued 4 mg PO THREE TIMES A DAY as needed for nausea and vomiting July 28, 2023 12:35am December 04, 2023 2:20am Start: 06-14-2018 take 1 tablet by malu th every six hours as needed ondansetron orally disintegrating (ZOFRAN ODT) 4 mg disintegrating tablet Take 1 tablet by mouth every 6 hours as needed. 30 tablet 0 06/14/2018 Active Comment on above: Take 1 tablet by malu th every 6 hours as needed. pantoprazole 40 mg delayed release oral tablet (3 sources) Proton Pump Inhibitor Start: take 1 tablet by mouth once daily pantoprazole DR (PROTONIX) 40 mg tablet Take 1 tablet by mouth once daily. 30 tablet 0 06/17/2018 Active Comment on above: Take 1 tablet by malu th once daily. phenazopyridine hydrochloride 200 mg oral tablet (8 sources) Start: End: take 1 tablet by mouth three times daily as needed for pain Phenazopyridine (Pyridium) 200 mg tablet Discontinued 200 mg PO THREE TIMES A DAY as needed for pain October 19, 2022 6:29am June 26, 2023 7:25am sulfamethoxazole 800 mg / trimethoprim 160 mg oral tablet (7 sources) Dihydrofolate Reductase Inhibitor Antibacterial, Sulfonamide Antimicrobial Start: End: Sulfamethoxazole-Trime thoprim (Bactrim Ds) 800-160 mg tablet Discontinued 1 {tbl} PO TWICE A DAY 15 07June 21, 2023 12:00am June 26, 2023 7:25am varenicline 0.5 mg oral tablet (3 sources) Partial Cholinergic Nicotinic Agonist take 1 tablet by mouth twice daily varenicline (CHANTIX) 0.5 mg tablet Take 0.5 mg by mouth twice daily. 0 Active Comment on above: Take 0.5 mg by mouth twice daily. Problems Active Problems Problem Classification Problem Date Documented Da te Episodic/Chronic Abdominal pain (10 sources) Unspecified abdominal pain; Translations: [Abdominal pain] Onset: 05-05-2018 06-17-2018 Episodic Anxiety disorders (1 source) Panic disorder [episodic paroxysmal anxiety]; Translations: [Panic disorder (episodic paroxysmal anxiety)] Onset: 10-04-2018 Chronic Disorders of teeth and jaw (2 sources) Infection of tooth; Translations: [Periapical abscess without sinus] Onset: 12-24-2024 12-15-2024 Episodic Endometriosis (2 sources) Endometriosis (clinical); Translations: [Endometriosis, unspecified] 08-10-2023 Chronic Fluid and electrolyte disorders (1 source) Dehydration; Translations: [Dehydration] Onset: 10-11-2018 Episodic Gastrointestinal hemorrhage (7 sources) Hematemesis; Translations: [Hematemesis] Onset: 06-16-2018 06-17-2018 Episodic Nausea and vomiting (8 sources) Nausea and vomiting; Translations: [Nausea with vomiting, unspecified] 07-28-2023 Episodic Noninfectious gastroenteritis (1 source) Noninfective gastroenteritis and colitis, unspecified; Translations: [Noninfective gastroenteritis and colitis, unspecified] Onset: 10-11-2018 Episodic Nonspecific chest pain (4 sources) Chest pain; Translations: [Chest pain, unspecified] 08-07-2023 Episodic Nutritional deficiencies (3 sources) Deficiency of macronutrients; Translations: [Unspecified severe protein-calorie malnutrition] Onset: 06-12-2018 06-17-2018 Chronic Other female genital disorders (1 source) Abnormal uterine and vaginal bleeding, unspecified; Translations: [Abnormal uterine and vaginal bleeding, unspecified] Onset: 01-16-2018 Chronic Other female genital disorders (6 sources) Pain in female genitalia on intercourse; Translations: [Unspecified dyspareunia] 06-26-2023 Chronic Other female genital disorders (6 sources) Vaginal discharge; Translations: [Other specified noninflammatory disorders of vagina] 06-26-2023 Episodic Other female genital disorders (3 sources) History of gynecological disorder; Translations: [Personal history of other diseases of the female genital tract] 08-13-2023 Episodic Other gastrointestinal disorders (1 source) Constipation, unspecified; Translations: [Constipation, unspecified] Onset: 06-07-2018 Episodic Ovarian cyst (20 sources) Cyst of ovary; Translations: [Unspecified ovarian cyst, left side] 06-21-2023 Episodic Residual codes; unclassified (1 source) Treatment not available; Translations: [Procedure and treatment not carried out for other reasons] 07-30-2023 Episodic Residual codes; unclassified (4 sources) History of right salpingo-oophorectomy ; Translations: [Acquired absence of other genital organ(s)] Onset: 08-10-2023 08-10-2023 Episodic Spondylosis; intervertebral disc disorders; other back problems (8 sources) Low back pain; Translations: [Low back pain] 10-19-2022 Episodic Substance-related disorders (4 sources) Smoker; Translations: [...] [Unspecified ovarian cyst, right side] Onset: 01-16-2018 Urinary tract infections (17 sources) Acute cystitis with hematuria; Translations: [Tubulo-interstitial nephritis, not specified as acute or chronic] Onset: 04-30-2018 10-19-2022 Episodic Past or Other Problems Problem Classification Problem Date Documented Da te Episodic/Chronic Biliary tract disease (3 sources) Gallstone; Translations: [Calculus of gallbladder without cholecystitis without obstruction] Onset: 01-05-2007 01-05-2007 Episodic Other gastrointestinal disorders (3 sources) Pelvic mass; Translations: [Intra-abdominal and pelvic swelling, mass and lump, unspecified site] Onset: 06-10-2018 06-17-2018 Episodic Results Test Name Value Interpretation Reference Range Facility Emergency Department Summary on 12-15-2024 Emergency Department Summary [facility] Medical Records Department [address] [place] [id number] Emergency Department Summary 12/15/24 MR#: [id number] Acct: [id number] Name: DELIA MERCHANT Rep #: [id number] : 1985 39 From: Spenser Lamb DO PCP: Care Physician,No Primary Status:DEP ER Location: ED HPI History of Present Illness Chief Complaint: Dental Narrative Narrative: Chief complaint and HPI: Right upper dental pain. 39-year-old female with past medical history of OCD, bipolar, anxiety, depression, poor dentition presents for evaluation of right upper dental pain. Onset today. Patient states that she has not seen the dentist in a while. She states that she has poor dentition with multiple pulled teeth. She states today she developed right upper dental pain. She has taken Excedrin, Tylenol, aspirin for the pain. She denies any fever, chills, shortness of breath, chest pain, nausea, vomiting, neck pain. Denies any difficulty swallowing or speaking. Review of systems: See HPI Medications: As listed on the chart Allergies: As listed on the chart PFSH: Per chart Vital signs: As listed on the chart. Reviewed. Physical exam: Gen: A O x3, NAD Head: Normocephalic, atraumatic Eyes: No sclera icterus, conjunctiva clear, PERRL, EOMI ENT: TMs clear BL, moist mucous membranes, posterior oropharynx unremarkable, uvula midline, tonsils not enlarged, no tonsillar exudates, poor dentition with multiple removed teeth and broken teeth, patient has right upper posterior gingival mild swelling-no abscess, no Anil angina, tolerating secretions, tongue nonenlarged, normal phonation Neck: Trachea midline, No JVD, Full ROM, No meningismus no swelling, no lymphadenopathy CV: RRR, no murmurs, no peripheral edema Resp: Lungs CTA BL, no w/r/c Skin: Warm, dry, no rash Neuro: Alert, oriented, grossly intact, sensation intact Psych: Cooperative, appropriate mood and affect [facility] Medical History Anxiety Bipolar disorder Depression Insomnia OCD (obsessive compulsive disorder) Ovarian cyst Sleep paralysis Home Medications ???Medication ???Instructions ???Recorded ???Last Taken ???Type Abilify 10 mg PO DAILY 10/19/22 Unknown Hi story BuSpar 15 mg PO TID 10/19/22 Unknown Hist ory trazodone 200 mg PO QHS 10/19/22 Unknown His tory hydrocodone-acetamin ophen 5-325mg 1 tab PO Q6H PRN PRN Pain 2 days 06/26/23 Unknown Rx 5mg-325mg #8 TABLETS omeprazole magnesium 20 mg 40 mg (2 x 20 mg) PO DAILY #30 tab s 08/07/23 Unknown Rx tablet,delayed release (Prilosec OTC) ondansetron 4 mg disintegrating 4 mg PO Q8H PRN PRN Nausea #10 tab s 08/07/23 Unknown Rx tablet bupropion HBr 174 mg 174 mg PO DAILY 12/04/23 Unknown H istory tablet,extended release 24 hr guanfacine 1 mg tablet,extended 1 mg PO DAILY 12/04/23 Unknown His tory release 24 hr lamotrigine 25 mg tablet 25 mg PO Q12H 12/04/23 Unknown His tory quetiapine 200 mg tablet 200 mg PO QHS 12/04/23 Unknown His tory quetiapine 300 mg tablet 300 mg PO QHS 12/04/23 Unknown His tory sertraline 100 mg tablet 100 mg PO DAILY 12/04/23 Unknown H istory amoxicillin 875 mg-potassium 1 tab PO BID 7 days #14 tabs 12/15 Unknown Rx clavulanate 125 mg tablet Allergy/AdvReac Type Severity Reaction Status Date / Time ketorolac (From Toradol) Allergy Anaphylaxis Verified 12/15/24 01:19 naproxen Allergy Anaphylaxis Verified 12/15/24 01:19 Social History household members: children Smoking Status: Heavy Smoker (>10/day) alcohol intake: current EXAM Physical Exam Const Vital Signs: 12/15/24 01:19 12/15/24 02:08 Temperature 98 F 98 F Temperature Source Oral Pulse Rate 72 73 Respiratory Rate 6 L 18 Blood Pressure 106/64 117/78 Blood Pressure Mean 78 91 Pulse Ox 98 99 Oxygen Delivery Method Room Air MDM MDM MDM Narrative Medical decision making narrative: 39-year-old female with past medical history of OCD, bipolar, anxiety, depression, poor dentition presents for evaluation of right upper dental pain. Differential diagnosis includes but is not limited to dental infection, dental abscess. Not Anil angina. See physical exam. Patient has a dental infection. No dental abscess for incision and drainage. She was educated on ibuprofen and Tylenol as needed for pain. Ice. Orajel. Continue to brush teeth. Follow-up with her dentist. She was also given dental clinics. Return precautions explained. Given the first dose of Augmentin here with a one-time [place]. Patient did not drive. Patient given a 7-day course of Augmentin for dental infection. She confirmed understand the plan. Patient discharged home. Impression: (more content not included)... Normal [facility] BMP with eGFRon 02-13-2024 AGE 38 years Normal [facility] Comment on above: Performed By: #### [id number] #### [facility],[address] [place] [id number] Anion gap [Moles/Vol] 11 mmol/L Normal 10 - 20 [facility] Comment on above: Performed By: #### [id number] #### [facility],[address] [place] [id number] BMP with eGFR Normal [facility] Comment on above: Result Comment: BASI C METABOLIC PANEL Performed By: #### [id number] #### [facility],[address] [place] [address]992 Calcium [Mass/Vol] 9.1 mg/dL Normal 8.5 - 10.1 [facility] Comment on above: Performed By: #### 2 [id number] #### [facility],[address] [place] [address] 00366 Chloride [Moles/Vol] 104 mmol/L Normal 98 - 107 [facility] Comment on above: Performed By: #### 2 [id number] #### [facility],[address] [place] [address] 10542 CO2 [Moles/Vol] 28.0 mmol/L Normal 21.0 - 32.0 [facility] Comment on above: Performed By: #### 2 [id number] #### [facility],[address] [place] [address] [id number] Creatinine [Mass/Vol] 0.70 mg/dL Normal 0.55 - 1.02 [facility] Comment on above: Performed By: #### 2 [id number] #### [facility],[address] [place] [address] 29685 GFR/1.73 sq M.predicted among non-blacks MDRD (S/P/Bld) [Vol rate/Area] mL/min/{1.73_m2} Normal 60 - 999 [facility] Comment on above: Performed By: #### 2 [id number] #### [facility],[address] [place] [address] [id number] Result Comment: ACCO RDING TO THE NATIONAL KIDNEY DISEASE EDUCATION PROGRAM(NKDE), A NORMAL eGFR IS A VALUE GREATER THAN OR EQUAL TO 60 ML/MIN/1.73 SQ METERS. CHRONIC KIDNEY DISEASE: <60mL/MIN/1.73 SQ METERS KIDNEY FAILURE: <15mL/MIN/1.73 SQ METERS THIS TEST SHOULD ONLY BE USED FOR PATIENTS 18 YEARS OF AGE AND OLDER. Glucose [Mass/Vol] 88 mg/dL Normal 74 - 106 [facility] Comment on above: Performed By: #### 2 [id number] #### [facility],[address] [place] [address] 86979 Potassium [Moles/Vol] 4.6 mmol/L Normal 3.5 - 5.1 [facility] Comment on above: Performed By: #### 2 [id number] #### [facility],[address] [place] [address] 61198 Sodium [Moles/Vol] 138 mmol/L Normal 136 - 145 [facility] Comment on above: Performed By: #### 2 [id number] #### [facility],[address] [place] [address] 18721 Urea nitrogen [Mass/Vol] 14 mg/dL Normal 7 - 18 [facility] Comment on above: Performed By: #### 2 [id number] #### [facility],[address] [place] [address]779 EMERGENCY REPORTon 4 EMERGENCY REPORT [facility] EMERGENCY ROOM REPORT NAME ACCOUNT SEX AGE ADMIT DISCHARGE PT MED. RECORD# NUMBER DATE DATE TYPE SIL [id number] F 38 11/29/23 11/29/23 3 DELIA [id number] ROOM: ER DATE OF : 1985 DICTATING PHYSICIAN: Chilango Butcher CHIEF COMPLAINT: Abdominal pain. HISTORY OF PRESENT ILLNESS: The patient states that she has had abdominal pain over the last week that seems to be gradually getting worse. It seems to be worse to the low abdomen and the left abdomen. Today, she states that it radiated up into her chest transiently, so she presents for evaluation. By the time I see her, she really is not complaining of chest pain, but mainly abdominal pain to the low and left abdomen. She has nausea with this, but no vomiting. No cough or congestion. She is not complaining of any diarrhea. She is not complaining of any urinary symptoms. PAST MEDICAL HISTORY: Past medical history is significant for a number of mental disorders such as anxiety, bipolar disorder, agoraphobia, and panic attacks. She has had previous kidney stones and asthma. PAST SURGICAL HISTORY: She has had a number of previous surgeries including appendectomy, cholecystectomy, tonsillectomy, and oophorectomy. MEDICATIONS: Per med rec list. ALLERGIES: Per allergy list. SOCIAL HISTORY: She lives at home. She does smoke. She does not drink alcohol. She uses medical marijuana. REVIEW OF SYSTEMS: No bleeding disorders. She is not complaining of chest pain or shortness of breath presently. PHYSICAL EXAMINATION: GENERAL: This is a 38-year-old female alert, appropriate, and does not appear toxic. SKIN: Her skin is warm and dry. VITAL SIGNS: Temperature 97.1, pulse 112, respirations 16, and blood pressure 96/68. DIAGNOSTIC DATA: Laboratories returned showing a chest x-ray that was normal. CBC: White count 12,100, 78% neutrophils, normal H&H. CMP: Essentially all within normal limits. Normal electrolytes. Normal BUN and creatinine. Glucose is 107. CRP is negligible. Troponin is normal. BNP is normal. Her D-dimer comes back elevated at Page 1 of 2 DELIA MERCHANT Emergency Room Report LANNYDELIA Tsang : 1985 785, but on previous visits she has had D-dimers consistently over 1000, 3500. She has had several previous chest CT's, all of which are negative. She really does not present with PE symptoms. I did not feel that we needed to proceed to get a chest CT for PE. Urinalysis does come back very consistent with a UTI, positive nitrites, 6 to 25 WBC, and 4+ bacteria. I did get a culture of this. EMERGENCY DEPARTMENT COURSE AND TREATMENT: O2 saturation was 97%. I did get some laboratory studies. We attempted to place an IV, but were unable to establish an IV to give her IV fluids. The patient was given some Dilaudid and Zofran in the ED. DIAGNOSIS: Abdominal pain with urinary tract infection. PLAN/DISPOSITION: We will give a prescription for Bactrim and some [place] for home. She is to see her family doctor in 2 to 3 days if no better, returning if symptoms worsen. Dictated By: Chilango Butcher MD 11/29/23 20:15 JOB #: [id number] Transcribed By: am 11/30/23 17:28 Electronically signed by: ZANDER Butcher M.D. 12/03/23 07:22 Page 2 of 2 DELIA MERCHANT Emergency Room Report Normal [facility] URINE CULTURE [CCL]on 2023 Bacteria identified Cx Nom (U) URCUL See Results Below See Below CULTURE, URINE MIXED MICROBIOTA >=100,000 CFU/ml Mixed microbiota No further workup. Mixed microbiota can be due to???urine???contami nation with s SOURCE: URINE [facility] [address] [place] [address] Lalo Mack III, M.D. [id number] SEND TO IC NO Normal [facility] Comment on above: Performed By: #### 2 86604 #### [facility],[address] [place], [place] [id number] Bacteria Ur Culton 4 Bacteria identified Cx Nom (U) ORGANISM ID: 1 >=100,000 CFU/ml Mixed microbiota No further workup. Mixed microbiota can be due to???urine???contami nation with skin bacteria at time of collection or presence of a long-term urinary catheter. If a new culture is needed, please consider re-education of the patient on proper midstream collection technique or straight catheterization for???urine???collec tion. Normal [facility] Comment on above: Performed By: #### 6 30-4 #### [facility] CLIA [id number] [address] [place] [address] OF [facility] C-REACTIVE PROTEINon 03-05-2 024 CRP [Mass/Vol] mg/L Normal 0.00 - 0.90 [facility] Comment on above: Performed By: #### 2 83949 #### [facility],[address] [place] [address] 02999 CBC + DIFFon 11-29-2023 Baso # 0.10 x10EE3/UL Normal 0.00 - 0.10 [facility] Comment on above: Performed By: #### 2 39619 #### [facility],[address] [place], [place] [id number] Basophils/100 WBC (Bld) 0.5 % Normal 0.0 - 2.0 [facility] Comment on above: Performed By: #### 2 87678 #### [facility],[address] [place] [address] CBC + DIFF Normal [facility] Comment on above: Result Comment: CBC- COMPLETE BLOOD COUNT Performed By: #### 2 86271 #### [facility],[address] [place], [place] [id number] EO # 0.00 x10EE3/UL Normal 0.00 - 0.50 [facility] Comment on above: Performed By: #### 2 49098 #### [facility],[address] [place] [address] 72883 Eosinophils/100 WBC (Bld) 0.1 % Normal 0.0 - 7.0 [facility] Comment on above: Performed By: #### 2 27108 #### [facility],[address] [place], [place] [id number] Erythrocyte distribution width (RBC) [Ratio] 13.1 % Normal 12.0 - 15.6 [facility] Comment on above: Performed By: #### 2 55455 #### [facility],[address] [place] [address] Hematocrit (Bld) [Volume fraction] 42.4 % Normal 34.0 - 46.0 [facility] Comment on above: Performed By: #### 2 08203 #### [facility],[address] [place] [address] 12507 Hemoglobin (Bld) [Mass/Vol] 14.2 g/dL Normal 12.0 - 16.0 [facility] Comment on above: Performed By: #### 2 82064 #### [facility],[address] [place] [address] 05816 Lymph # 1.60 x10EE3/UL Normal 0.80 - 2.80 [facility] Comment on above: Performed By: #### 2 02860 #### [facility],[address] [place] [address] 24587 Lymphocytes/100 WBC (Bld) 12.9 % Low 20.0 - 45.0 [facility] Comment on above: Performed By: #### 2 84526 #### [facility],[address] [place] [address] 84504 MANUAL DIFF N/A Normal [facility] Comment on above: Performed By: #### 2 16811 #### [facility],[address] [place] [address] 37667 MCH (RBC) [Entitic mass] 33 pg Normal 27 - 33 [facility] Comment on above: Performed By: #### 2 63420 #### [facility],[address] [place] [address] 91775 MCHC 34 X10 3 Normal 32 - 36 [facility] Comment on above: Performed By: #### 2 94212 #### [facility],[address] [place] [address] 71420 MCV (RBC) [Entitic vol] 97 fL Normal 80 - 99 [facility] Comment on above: Performed By: #### 2 70449 #### [facility],[address] [place] [address] 78724 [place] # 1.00 x10EE3/UL Normal 0.20 - 1.00 [facility] Comment on above: Performed By: #### 2 26786 #### [facility],[address] [place] [address] 12069 MONOS % 7.9 % Normal 0.0 - 10.0 [facility] Comment on above: Performed By: #### 2 32643 #### [facility],[address] [place] [address] 80212 Morphology Marvin (Bld) [Interp] N/A Normal [facility] Comment on above: Performed By: #### 2 68248 #### [facility],[address] [place] [address] 02758 Neut # 9.50 x10EE3/UL High 1.50 - 7.10 [facility] Comment on above: Performed By: #### 2 86695 #### [facility],[address] [place] [address] 63720 Neutrophils/100 WBC (Bld) 78.6 % High 46.0 - 76.0 [facility] Comment on above: Performed By: #### 2 50981 #### [facility],[address] [place] [address] 24662 PLATELET 346 x10EE3/UL Normal 150 - 450 [facility] Comment on above: Performed By: #### 2 81675 #### [facility],[address] [place] [address] 66395 Platelet mean volume (Bld) [Entitic vol] 8.5 fL Normal 6.6 - 10.5 [facility] Comment on above: Result Comment: AUTO MATED DIFFERENTIAL Performed By: #### 2 25172 #### [facility],[address] [place] [address] 36096 RBC 4.39 x 10EE6/UL Normal 4.10 - 5.30 [facility] Comment on above: Performed By: #### 2 11361 #### [facility],[address] [place] [address] 26785 WBC 12.1 x 10EE3/UL High 4.5 - 10.8 [facility] Comment on above: Performed By: #### 2 65390 #### [facility],[address] [place] [address] 80510 CHEST 1 VIEWon 11-29-2023 CHEST [address] [address] Patient: DELIA MERCHANT Phone#: : 1985 Age: 38 Gender: F Pt. Type: ER Account: [id number] Location: [facility] Ordering: CHILANGO BUTCHER Exam Date: 11/29/2023/17:17 Family Phys: KATY KASIA Charge Code: [id number] Physician: Hubbard Order #: [id number] Dose#: PROCEDURE: X-RAY CHEST 1 VIEW COMPARISON: [facility], XR, CHEST 1 VIEW, 02/22/2023, 17:23. INDICATIONS: Chest pain. FINDINGS: LUNGS: Normal. No significant pulmonary parenchymal abnormalities. VASCULATURE: Normal. Unremarkable pulmonary vasculature. CARDIAC: Normal. No cardiac silhouette abnormality or cardiomegaly. MEDIASTINUM: Normal. No visible mass or adenopathy. PLEURA: Normal. No effusion or pleural thickening. BONES: Normal. No fracture or visible bony lesion. OTHER: Negative. CONCLUSION: No acute disease. No significant change has occurred. Dictated by: Shavonne Burton MD on 11/29/2023 at 17:48 Approved by: Shavonne Burton MD on 11/29/2023 at 17:55 Normal [facility] CMP with eGFRon 11-29-2023 AGE 38 years Normal [facility] Comment on above: Performed By: #### 2 69042 #### [facility],[address] [place] [address] 16757 Albumin [Mass/Vol] 3.4 g/dL Normal 3.4 - 5.0 [facility] Comment on above: Performed By: #### 2 40023 #### [facility],[address] [place] [address] 35954 Albumin/Globulin [Mass ratio] 0.8 {ratio} Low 0.9 - 1.6 [facility] Comment on above: Performed By: #### 2 99787 #### [facility],[address] [place] [address] 48953 ALK PHOS 100 U/L Normal 46 - 116 [facility] Comment on above: Performed By: #### 2 48953 #### [facility],[address] [place] [address] 52054 ALT [Catalytic activity/Vol] 37 U/L Normal 16 - 63 [facility] Comment on above: Performed By: #### 2 53755 #### [facility],[address] [place] [address] 91348 Anion gap [Moles/Vol] 13 mmol/L Normal 10 - 20 [facility] Comment on above: Performed By: #### 2 14275 #### [facility],[address] [place], [place] [id number] AST [Catalytic activity/Vol] 18 U/L Normal 13 - 39 [facility] Comment on above: Performed By: #### 2 42112 #### [facility],[address] [place] [address] 06169 B/C RATIO 15 ratio Normal 0 - 30 [facility] Comment on above: Performed By: #### 2 81739 #### [facility],[address] [place] [address] 19286 Bilirubin [Mass/Vol] 0.2 mg/dL Normal 0.2 - 1.0 [facility] Comment on above: Performed By: #### 2 92453 #### [facility],[address] [place] [address] 69550 Calcium [Mass/Vol] 9.1 mg/dL Normal 8.5 - 10.1 [facility] Comment on above: Performed By: #### 2 56417 #### [facility],[address] [place] [address] 39425 Chloride [Moles/Vol] 105 mmol/L Normal 98 - 107 [facility] Comment on above: Performed By: #### 2 65647 #### [facility],[address] [place], [place] [id number] CMP with eGFR Normal [facility] Comment on above: Result Comment: COMP REHENSIVE METABOLIC PANEL Performed By: #### 2 99133 #### [facility],[address] [place] [address] CO2 [Moles/Vol] 30.1 mmol/L Normal 21.0 - 32.0 [facility] Comment on above: Performed By: #### 2 15856 #### [facility],[address] [place] [address] Creatinine [Mass/Vol] 0.74 mg/dL Normal 0.55 - 1.02 [facility] Comment on above: Performed By: #### 2 25513 #### [facility],[address] [place] [address] GFR/1.73 sq M.predicted among non-blacks MDRD (S/P/Bld) [Vol rate/Area] mL/min/{1.73_m2} Normal 60 - 999 [facility] Comment on above: Performed By: #### 2 76325 #### [place] [address] Result Comment: ACCO RDING TO THE NATIONAL KIDNEY DISEASE EDUCATION PROGRAM(NKDE), A NORMAL eGFR IS A VALUE GREATER THAN OR EQUAL TO 60 ML/MIN/1.73 SQ METERS. CHRONIC KIDNEY DISEASE: <60mL/MIN/1.73 SQ METERS KIDNEY FAILURE: <15mL/MIN/1.73 SQ METERS THIS TEST SHOULD ONLY BE USED FOR PATIENTS 18 YEARS OF AGE AND OLDER. Globulin (S) [Mass/Vol] 4.4 g/dL High 1.5 - 3.8 [facility] Comment on above: Performed By: #### 2 23154 #### [place] [address] Glucose [Mass/Vol] 107 mg/dL High 74 - 106 [facility] Comment on above: Performed By: #### 2 62737 #### [facility],[address] [place] [address] 78284 Potassium [Moles/Vol] 4.5 mmol/L Normal 3.5 - 5.1 [facility] Comment on above: Performed By: #### 2 87903 #### [facility],[address] [place] [address] 25238 Protein [Mass/Vol] 7.8 g/dL Normal 6.4 - 8.2 [facility] Comment on above: Performed By: #### 2 36259 #### [facility],[address] [place] [address] 40677 Sodium [Moles/Vol] 144 mmol/L Normal 136 - 145 [facility] Comment on above: Performed By: #### 2 67725 #### [facility],[address] [place] [address] 98375 Urea nitrogen [Mass/Vol] 11 mg/dL Normal 7 - 18 [facility] Comment on above: Performed By: #### 2 95301 #### [facility],[address] [place] [address] ABDOMEN/PELVIS WO 11-28 CT ABDOMEN/PELVIS WO [place] [address] Patient: DELIA MERCHANT Phone#: : 1985 Age: 38 Gender: F Pt. Type: ER Account: [id number] Location: [facility] Ordering: CHILANGO BUTCHER Exam Date: 11/29/2023/17:27 Family Phys: KATY PEDROZA Charge Code: [id number] Physician: Hubbard Order #: [id number] Dose#: 6.3 mGy PROCEDURE: CT ABDOMEN/PELVIS WITHOUT CONTRAST COMPARISON: [facility], CT, ABDOMEN/PELVIS W CON, 02/22/2023, 17:11. INDICATIONS: Abdominal pain. TECHNIQUE: CT images were created without intravenous contrast. All CT scans at this facility use dose modulation, iterative reconstruction, and/or weight based dosing when appropriate to reduce radiation dose to as low as reasonably achievable. IV CONTRAST: No IV contrast used,0ml TOTAL DOSE: 6.3 CTDIvol(mGy) FINDINGS: LIVER: Normal. No enlargement, atrophy, abnormal density, or significant focal lesion. BILIARY: The gallbladder is not identified. PANCREAS: Normal. No lesion, fluid collection, ductal dilatation, or atrophy. SPLEEN: Normal. No enlargement or focal lesion. KIDNEYS: Normal. No mass, obstruction, or calcification. ADRENALS: Normal. No mass or enlargement. AORTA/VASCULAR: Normal. No aneurysm. RETROPERITONEUM: Normal. No mass or adenopathy. BOWEL/MESENTERY: There is moderate stool retention. There is otherwise no evidence of obstructive or inflammatory bowel change. Surgical suture is present at the cecum. ABDOMINAL WALL: Normal. No mass or hernia. URINARY BLADDER: Normal. No visible focal wall thickening, lesion, or calculus. PELVIC NODES: Normal. No adenopathy. PELVIC ORGANS: There is a 2.2 centimeter left adnexal cyst. No visible mass. Pelvic organs appropriate for patient age. BONES: Normal. No bony lesion or fracture. LUNG BASES: Normal. No visible pulmonary or pleural disease. OTHER: Negative. CONCLUSION: Continued Report - Page 2 of 2 Patient: DELIA MERCHANT Phone#: : 1985 Age: 38 Gender: F Pt. Type: ER Account: [id number] Location: 052 Ordering: CHILANGO BUTCHER Exam Date: 11/29/2023/17:27 Family Phys: KATY PEDROZA Charge Code: [id number] Physician: Hubbard Order #: [id number] Dose#: 6.3 mGy 1. Moderate stool retention. 2. There is no evidence of acute abdominal or pelvic abnormality. Dictated by: Shavonne Burton MD on 11/29/2023 at 18:10 Approved by: Shavonne Burton MD on 11/29/2023 at 18:14 Normal [facility] D-DIMER, QUANTITATIVEon 03-0 D-DIMER QUANT 785 ng/ml High 0 - 230 [facility] Comment on above: Performed By: #### 2 66518 #### [facility],[address] [place] [address] 24409 D-DIMER, QUANTITATIVE Normal [facility] Comment on above: Result Comment: DUKE T D-DIMER Performed By: #### 2 59118 #### [facility],[address] [place] [address] 35531 LIPASEon 11-29-2023 Lipase [Catalytic activity/Vol] 30.0 U/L Normal 15.0 - 78.0 [facility] Comment on above: Result Comment: *PLE ASE NOTE THAT RANGES FOR LIPASE HAVE CHANGED OF 09/23/23 DUE TO AN ASSAY UPDATE BY THE SUPERVISOR PURIFICATION.THE NEW ASSAY RANGE IS 6-250 U/L, WITH A REFERENCE RANGE OF 16-77 U/L. Performed By: #### 2 50487 #### [facility],[address] [place], [place] [id number] NT-proBNPon 11-29-2023 Natriuretic peptide B (Bld) [Mass/Vol] 49 pg/mL Normal 0 - 125 [facility] Comment on above: Performed By: #### 2 84463 #### [facility],[address] [place] [address] 95556 TROPONIN I, HIGH SENSITIVITY on 11-29-2023 HS TROPONIN 4.5 pg/mL Normal 0.0 - 51.4 [facility] Comment on above: Performed By: #### 2 81901 #### [facility],[address] [place] [address] 24365 URINALYSISon 11-29-2023 Amorphous NONE Normal [facility] Comment on above: Performed By: #### 2 76663 #### [facility],[address] [place] [address] 80331 Bacteria 4+ Normal [facility] Comment on above: Performed By: #### 2 83498 #### [facility],[address] [place], [place] [address] Bilirubin Ql (U) Negative Normal NORMAL: NEGATIVE [facility] Comment on above: Performed By: #### 2 73227 #### [facility],[address] [place] [address] Casts NONE Normal [facility] Comment on above: Performed By: #### 2 71762 #### [facility],[address] [place] [address] Clarity (U) very cloudy Normal NORMAL: CLEAR [facility] Comment on above: Performed By: #### 2 38895 #### [facility],[address] [place] [address] Color (U) yellow Normal NORMAL: YELLOW [facility] Comment on above: Performed By: #### 2 79212 #### [facility],[address] [place] [address] Crystals LM Nom (Urine sed) NONE Normal [facility] Comment on above: Performed By: #### 2 61636 #### [facility],[address] [place], [place] [id number] Epi Cells MANY Normal [facility] Comment on above: Performed By: #### 2 41964 #### [facility],[address] [place] [address] ERROR DUE TO tech error Normal [facility] Comment on above: Performed By: #### 2 01704 #### [facility],[address] [place] [address] 38861 Glucose Ql (U) NORM Normal NORMAL: NORMAL [facility] Comment on above: Performed By: #### 2 73135 #### [facility],[address] [place] [address] 52889 Hemoglobin Ql (U) 250 Abnormal NORMAL: NEGATIVE [facility] Comment on above: Performed By: #### 2 64476 #### [facility],[address] [place], [place] [id number] Ketone Negative Normal NORMAL: NEGATIVE [facility] Comment on above: Performed By: #### 2 08425 #### [facility],[address] [place] [address] 32737 Leukocytes 500 Abnormal NORMAL: NEGATIVE [facility] Comment on above: Performed By: #### 2 14285 #### [facility],[address] [place] [address] Mucous NONE Normal [facility] Comment on above: Performed By: #### 2 18110 #### [facility],[address] [place] [address] Nitrite Ql (U) Positive Normal NORMAL: NEGATIVE [facility] Comment on above: Performed By: #### 2 15858 #### [facility],[address] [place] [address] pH (U) 7 [pH] Normal NORMAL: 5.0-8.0 [facility] Comment on above: Performed By: #### 2 84679 #### [facility],[address] [place] [address] Protein Ql (U) 30 Abnormal NORMAL: NEGATIVE [facility] Comment on above: Performed By: #### 2 88541 #### [facility],[address] [place], [place] [id number] Rbc 5-10 Normal 0-3/hpf [facility] Comment on above: Performed By: #### 2 97970 #### [facility],[address] [place], [place] [id number] Sp [place] 1.010 Normal NORMAL: 1.010-1.030 [facility] Comment on above: Performed By: #### 2 87684 #### [facility],[address] [place] [address] Specimen Type Clean catch Normal [facility] Comment on above: Performed By: #### 2 72305 #### [facility],[address] [place] [address] Urinalysis dipstick W Reflex Microscopic panel (U) SEE BELOW Normal [facility] Comment on above: Result Comment: MICR OSCOPIC Performed By: #### 2 91510 #### [place] [address] Urobilinog NORM Normal NORMAL: NORMAL [facility] Comment on above: Performed By: #### 2 67945 #### [place] [address] Wbc 16-25 Normal 0-5/hpf [facility] Comment on above: Performed By: #### 2 35721 #### [place] [address] Yeast NONE Normal [facility] Comment on above: Result Comment: ==== FOLLOWING RESULTS REPORTED IN ERROR Rbc 0-5 <-- *Previously reported in error 11/29/23.1941.LZ . . .M Performed By: #### 2 02677 #### [place] [id number] CNPFaith 09-29-2023 [facility] Telephone (Q) DELIA MERCHANT ([id number]) 1985 F Date Time Provider Department 09/29/23 JACQUELINE ARIAS During your visit today, we recorded the following information about you: Carly Schwartz 09/29/2023 10:39 AM Signed Received fax from [employer] requesting additional clinical information to process referral placed by Jacqueline Arias. Document scanned into [employer]. Thanks, Analy Escoto, RN 09/29/2023 12:38 PM Signed Completed/corrected auth form for insurance referral. Faxed back to insurance with last office note KK 08/10/2023. Analy Mace RN Carly Schwartz 09/29/2023 4:29 PM Signed Received fax of denial of coverage from [employer]. Document scanned into [employer]. Analy Mace RN 09/30/2023 8:42 AM Signed Request for referral to migs denied. Last visit VV with Jacqueline on 08/10/2023. Analy Mace RN Assessment and Plan Encounter Diagnosis ICD-10-CM 1. History of right salpingo-oophorectom y 05/2018 for adnexal mass (benign, endometriosis) Z90.79 [...] F17.200 1) Plan for repeat US at [facility]. Pt is s/p RSO, OSH US noted normal right ovary on recent US. No cysts noted on recent US, but patient reports cysts are coming and resolving day to day. 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 Pharmacy Information [place] [address] SIGNATURE: Jacqueline Arias APRN.CREDIT RISK MODELER PAGER: [phone] Analy Mace RN 09/30/2023 11:18 AM Signed Second call to [facility] to ask is auth for referral or US. - was disconnected 2 times today and 2 times yesterday. Called patient, no VM. Will send MyChart. Analy Mace RN Allergies As of Date: 09/29/2023 Noted Allergy Reaction NAPROXEN 06/10/2018 4 - Hives TORADOL (KETOROLAC) 06/10/2018 7 - Swelling Date Reviewed: 08/10/2023 Reviewed by: Jacqueline Arias APRN.CREDIT RISK MODELER - Fully Assessed Reason for Visit: Request Additional Clinical Info [Other] Cmt: Have called [facility] 4 times - was disconnected several times. Please ask them what the auth is for - OV, referral to surgeon or US order. Prescriptions as of 09/30/2023 - norethindrone (AYGESTIN) 5 mg tablet Take 1 tablet by mouth once daily. - acetaminophen (TYLENOL) 325 mg tablet 2 tablets by ORAL/FEEDING TUBE route every 4 hours as needed. - pantoprazole DR (PROTONIX) 40 mg tablet Take 1 tablet by mouth once daily. - ondansetron orally disintegrating (ZOFRAN ODT) 4 mg disintegrating tablet Take 1 tablet by mouth every 6 hours as needed. - ALPRAZolam (XANAX) 1 mg tablet Take 1 mg by mouth three times daily as needed for Anxiety. - varenicline (CHANTIX) 0.5 mg tablet Take 0.5 mg by mouth twice daily. - nicotine (NICODERM) 21 mg/24 hr Apply 1 Patch as directed once daily. Problem List As Of Date 09/29/2023 Noted Resolved CHOLELITHIASIS NOS [K80.20] 01/05/2007 Pain, abdominal [R10.9] 06/10/2018 Pelvic mass [R19.00] 06/10/2018 Severe protein-calorie malnutrition (HCC) [E43] 06/12/2018 Hematemesis with nausea [K92.0] 06/16/2018 Smoker [F17.200] 06/16/2018 History of right salpingo-oophorectom y 05/2018 f*08/10/2023 Encounter Status:Closed by CARLY SCHWARTZ (more content not included)... Normal [facility] Absolute lymphocyte countOrd ered By: Aníbal Minaya on 08-13-2023 Lymphocytes Auto (Unsp spec) [#/Vol] 1.71 10*3/uL 0.83-4.51 [facility] Basophil percentageOrdered B y: Aníbal Rei on 08-13-2023 Basophils/100 WBC (Bld) 0.7 % 0-1 [facility] Bilirubin [Mass/Vol] 0.30 mg/dL 0.20-1.00 [facility] Comment on above: For patients on eltr ombopag therapy, use of Dimension [place] TBIL is not recommended. Chloride [Moles/Vol] 108 mmol/L 98-107 [facility] Eosinophils/100 WBC (Bld) 0.3 % 0-5 [facility] Glucose [Mass/Vol] 80 mg/dL 74-106 [facility] Neutrophils (Bld) [#/Vol] 7.9 10*3/uL 2.0-7.7 [facility] Neutrophils/100 WBC (Bld) 74.6 % 47-70 [facility] Potassium [Moles/Vol] 4.0 mmol/L 3.5-5.1 [facility] Comment on above: Slight Hemolysis, Re sult may be falsely increased. Protein [Mass/Vol] 7.8 g/dL 6.4-8.2 [facility] Sodium [Moles/Vol] 138 mmol/L 136-145 [facility] WBC (Bld) [#/Vol] 10.5 10*3/uL 4.4-11.0 [facility] Blood erythrocytes count (nu mber/volume)Ordered By: Aníbal Minaya on 08-13-2023 RBC (Bld) [#/Vol] 4.18 10*6/uL 4.2-5.4 [facility] Blood hemoglobin measurement (mass/volume)Ordered By: Aníbal Minaya on 08-13-2023 Hemoglobin (Bld) [Mass/Vol] 13.7 g/dL 12.0-15.0 [facility] Blood lymphocytes/100 leukoc ytesOrdered By: Aníbal Minaya on 08-13-2023 Lymphocytes/100 WBC (Bld) 16.3 % 19-41 [facility] Blood monocytes/100 leukocyt esOrdered By: Aníbal Minaya on 08-13-2023 Monocytes/100 WBC (Bld) 7.2 % 0-10 [facility] Blood platelet mean volumeOr dered By: Aníbal Minaya on 08-13-2023 Platelet mean volume (Bld) [Entitic vol] 10.1 fL 6.2-12.0 [facility] Determination of erythrocyte mean corpuscular volume (MCV)Ordered By: Aníbal Minaya on 08-13-2023 MCV (RBC) [Entitic vol] 101.9 fL 81-99 [facility] Hematocrit Auto (Bld) [Volum e fraction]Ordered By: Aníbal Minaya on 08-13-2023 Hematocrit (Bld) [Volume fraction] 42.6 % 37-47 [facility] Laboratory - Chemistry and C hemistry - challengeOrdered By: Aníbal Minaya on 08-13-2023 ALP [Catalytic activity/Vol] 88 U/L 45-117 [facility] ALT [Catalytic activity/Vol] 29 U/L 13-56 [facility] CO2 [Moles/Vol] 28.0 mmol/L 21.0-32.0 [facility] Globulin (S) [Mass/Vol] 4.3 g/dL 2.2-4.2 [facility] Urea nitrogen/Creatinine [Mass ratio] 12.7 mg/mg 10-20 [facility] Laboratory - Hematology and Cell countsOrdered By: Aníbal Minaya on 08-13-2023 Erythrocyte distribution width (RBC) [Entitic vol] 46.5 fL 35.1-43.9 [facility] Erythrocyte distribution width (RBC) [Ratio] 12.4 % 11.6-14.6 [facility] Immature granulocytes/100 WBC (Bld) 0.900 % 0.0-0.9 [facility] Comment on above: IG% - Immature Granu locytes (promyelocytes, myelocytes and metamyelocytes) > 1% indicates that a LEFT SHIFT is Present. MCH (RBC) [Entitic mass] 32.8 pg 27.0-32.0 [facility] Nucleated RBC/100 WBC (Bld) [Ratio] 0 % 0-5 [facility] MCHC Auto (RBC) [Mass/Vol]Or dered By: Aníbal Minaya on 08-13-2023 MCHC (RBC) [Mass/Vol] 32.2 g/dL 32-36 [facility] No Panel InformationOrdered By: Aníbal Minaya on 08-13-2023 Estimated Creatinine Clearance Calc 84.19 ml/min [facility] Estimated GFR (MDRD) Amer 106 mL/min >60 [facility] Comment on above: GFR Calc Estimated GFR (MDRD) Non-Af Amer 87 mL/min >60 [facility] Comment on above: Non- GFR Calc Platelets bldOrdered By: Brian Minaya on 08-13-2023 Platelets (Bld) [#/Vol] 393 10*3/uL 150-450 [facility] Serum or plasma albumin julius urement (mass/volume)Ordered By: Aníbal Minaya on 08-13-2023 Albumin [Mass/Vol] 3.5 g/dL 3.2-5.0 [facility] Serum or plasma albumin/glob ulin mass ratioOrdered By: Aníbal Minaya on 08-13-2023 Albumin/Globulin [Mass ratio] 0.8 {ratio} 0.9-2.4 [facility] Serum or plasma calcium julius urement (mass/volume)Ordered By: Aníbal Minaya on 08-13-2023 Calcium [Mass/Vol] 9.2 mg/dL 8.5-10.1 [facility] Serum or plasma creatinine m easurement (mass/volume)Ordered By: Aníbal Minaya on 08-13-2023 Creatinine [Mass/Vol] 0.79 mg/dL 0.55-1.02 [facility] Comment on above: The validity of the calculated GFR & GFRAA in patients over 70 years has not been determined. Clinical correlation is essential. Serum or plasma urea nitroge n measurement (mass/volume)Ordered By: Aníbal Minaya on 08-13-2023 Urea nitrogen [Mass/Vol] 10 mg/dL 7-18 [facility] Thin prep Papanicolaou smear with manual screeningOrdered By: Aníabl Minaya on 08-13-2023 Thin prep Papanicolaou smear with manual screening 26 U/L 15-37 [facility] Comment on above: Slight Hemolysis, Re sult may be falsely increased. Thin prep Papanicolaou smear with manual screening 2 5-15 [facility] Absolute lymphocyte countOrd ered By: Tracie Ria on 08-07-2023 Lymphocytes Auto (Unsp spec) [#/Vol] 1.77 10*3/uL 0.83-4.51 [facility] Basophil percentageOrdered B y: Tracie Rai on 08-07-2023 Basophil percentage 25-50 SEEN /hpf 0-5 [facility] Basophils/100 WBC (Bld) 0.3 % 0-1 [facility] Bilirubin [Mass/Vol] 0.20 mg/dL 0.20-1.00 [facility] Comment on above: For patients on eltr ombopag therapy, use of Dimension [place] TBIL is not recommended. Chloride [Moles/Vol] 108 mmol/L 98-107 [facility] Eosinophils/100 WBC (Bld) 0.4 % 0-5 [facility] Glucose [Mass/Vol] 104 mg/dL 74-106 [facility] Comment on above: Fasting Glucose resu lt from 100 to 125 mg/dL suggests IMPAIRED HOMEOSTASIS per A.D.A. criteria. Neutrophils (Bld) [#/Vol] 12.9 10*3/uL 2.0-7.7 [facility] Neutrophils/100 WBC (Bld) 80.7 % 47-70 [facility] Potassium [Moles/Vol] 4.1 mmol/L 3.5-5.1 [facility] Protein [Mass/Vol] 7.9 g/dL 6.4-8.2 [facility] Sodium [Moles/Vol] 137 mmol/L 136-145 [facility] WBC (Bld) [#/Vol] 15.9 10*3/uL 4.4-11.0 [facility] Beta hCG serum qualOrdered B y: Tracie Rai on 08-07-2023 Beta HCG ( test) Ql Negative [facility] Bilirubin Test strip Ql (U)O rdered By: Tracie Rai on 08-07-2023 Bilirubin Ql (U) Negative Negative [facility] Blood erythrocytes count (nu mber/volume)Ordered By: Tracie Rai on 08-07-2023 RBC (Bld) [#/Vol] 4.43 10*6/uL 4.2-5.4 [facility] Blood hemoglobin measurement (mass/volume)Ordered By: Tracie Rai on 08-07-2023 Hemoglobin (Bld) [Mass/Vol] 14.7 g/dL 12.0-15.0 [facility] Blood lymphocytes/100 leukoc ytesOrdered By: Tracie Rai on 08-07-2023 Lymphocytes/100 WBC (Bld) 11.1 % 19-41 [facility] Blood monocytes/100 leukocyt esOrdered By: Tracie Rai on 08-07-2023 Monocytes/100 WBC (Bld) 6.6 % 0-10 [facility] Blood platelet mean volumeOr dered By: Tracie Rai on 08-07-2023 Platelet mean volume (Bld) [Entitic vol] 9.7 fL 6.2-12.0 [facility] Determination of erythrocyte mean corpuscular volume (MCV)Ordered By: Tracie Rai on 08-07-2023 MCV (RBC) [Entitic vol] 100.7 fL 81-99 [facility] Direct bilirubinOrdered By: Tracie Rai on 08-07-2023 Bilirubin.direct [Mass/Vol] 0.06 mg/dL 0.00-0.30 [facility] Hematocrit Auto (Bld) [Volum e fraction]Ordered By: Tracie Rai on 08-07-2023 Hematocrit (Bld) [Volume fraction] 44.6 % 37-47 [facility] Ketones Test strip Ql (U)Ord ered By: Tracie Rai on 08-07-2023 Ketones Ql (U) Negative Negative [facility] Laboratory - Chemistry and C hemistry - challengeOrdered By: Tracie Rai on 08-07-2023 ALP [Catalytic activity/Vol] 98 U/L 45-117 [facility] ALT [Catalytic activity/Vol] 26 U/L 13-56 [facility] CO2 [Moles/Vol] 28.0 mmol/L 21.0-32.0 [facility] Globulin (S) [Mass/Vol] 4.3 g/dL 2.2-4.2 [facility] Lipase [Catalytic activity/Vol] 30 U/L 13-75 [facility] Comment on above: Please note:LIPASE r evised reference range effective 23. New Lipase methodology. Expected to produce lower values than the previous assay method. NEW Reference Range: 13 - 75 U/L Urea nitrogen/Creatinine [Mass ratio] 15.3 mg/mg 10-20 [facility] Laboratory - Hematology and Cell countsOrdered By: Tracie Rai on 08-07-2023 Erythrocyte distribution width (RBC) [Entitic vol] 46.5 fL 35.1-43.9 [facility] Erythrocyte distribution width (RBC) [Ratio] 12.4 % 11.6-14.6 [facility] Immature granulocytes/100 WBC (Bld) 0.900 % 0.0-0.9 [facility] Comment on above: IG% - Immature Granu locytes (promyelocytes, myelocytes and metamyelocytes) > 1% indicates that a LEFT SHIFT is Present. MCH (RBC) [Entitic mass] 33.2 pg 27.0-32.0 [facility] Nucleated RBC/100 WBC (Bld) [Ratio] 0 % 0-5 [facility] MCHC Auto (RBC) [Mass/Vol]Or dered By: Tracie Rai on 08-07-2023 MCHC (RBC) [Mass/Vol] 33.0 g/dL 32-36 [facility] Mucus LM Ql (Urine sed)Order ed By: Tracie Rai on 08-07-2023 Mucus Ql (Urine sed) 0 SEEN /hpf [facility] Nitrite Test strip Ql (U)Ord ered By: Tracie Rai on 08-07-2023 Nitrite Ql (U) Negative Negative [facility] No Panel InformationOrdered By: Tracie Rai on 08-07-2023 Estimated Creatinine Clearance Calc 84.19 ml/min [facility] Estimated GFR (MDRD) Amer 106 mL/min >60 [facility] Comment on above: GFR Calc Estimated GFR (MDRD) Non-Af Amer 87 mL/min >60 [facility] Comment on above: Non- GFR Calc Troponin I High Sensitivity 5 pg/mL 3.0-54.0 [facility] Comment on above: Please Note: New Venra t Units and Gender Specific Reference Ranges. For more information see Policy Stat Procedure [place]enes High Sensitivity Troponin (TNIH) and attachments. Platelets bldOrdered By: Nathaly Rai on 08-07-2023 Platelets (Bld) [#/Vol] 381 10*3/uL 150-450 [facility] Protein Test strip Ql (U)Ord ered By: Tracie Rai on 08-07-2023 Protein Ql (U) 30 mg/dl Negative [facility] Serum or plasma albumin julius urement (mass/volume)Ordered By: Tracie Rai on 08-07-2023 Albumin [Mass/Vol] 3.6 g/dL 3.2-5.0 [facility] Serum or plasma calcium julius urement (mass/volume)Ordered By: Tracie Rai on 08-07-2023 Calcium [Mass/Vol] 8.7 mg/dL 8.5-10.1 [facility] Serum or plasma creatinine m easurement (mass/volume)Ordered By: Tracie Rai on 08-07-2023 Creatinine [Mass/Vol] 0.79 mg/dL 0.55-1.02 [facility] Comment on above: The validity of the calculated GFR & GFRAA in patients over 70 years has not been determined. Clinical correlation is essential. Serum or plasma urea nitroge n measurement (mass/volume)Ordered By: Tracie Rai on 08-07-2023 Urea nitrogen [Mass/Vol] 12 mg/dL 7-18 [facility] Squamous epithelial cells de tection in urine sediment by light microscopyOrdered By: Tracie Rai on 08-07-2023 Epithelial cells.squamous LM Ql (Urine sed) 0-5 SEEN /hpf 5-10 [facility] Thin prep Papanicolaou smear with manual screeningOrdered By: Tracie Rai on 08-07-2023 Thin prep Papanicolaou smear with manual screening 19 U/L 15-37 [facility] Thin prep Papanicolaou smear with manual screening 1 5-15 [facility] Urine blood detectionOrdered By: Tracie Rai on 08-07-2023 RBC Ql (U) 250 /ul Negative [facility] RBC Ql (U) 25-50 SEEN /hpf 0-5 [facility] Urine clarityOrdered By: Nathaly Rai on 08-07-2023 Clarity (U) Sl. Cloudy Clear [facility] Urine color determinationOrd ered By: Tracie Rai on 08-07-2023 Color (U) Straw Yellow [facility] Urine glucose detectionOrder ed By: Tracie Rai on 08-07-2023 Glucose Ql (U) Normal mg/dl Normal [facility] Urine leukocyte esterase det ection by dipstickOrdered By: Tracie Rai on 08-07-2023 Leukocyte esterase Test strip Ql (U) 500 /ul Negative [facility] Urine pHOrdered By: Tracie Rai on 08-07-2023 pH (U) 6.5 [pH] 5.0 - 8.0 [facility] Urine sediment bacteria coun t by microscopy (number/high power field)Ordered By: Tracie Rai on 08-07-2023 Bacteria LM.HPF (Urine sed) [#/Area] 0 /[HPF] None Seen [facility] Urine specific gravity measu rementOrdered By: Tracie Rai on 08-07-2023 Specific gravity (U) [Rel density] 1.010 1.002-1.030 [facility] Urobilinogen Auto test strip Ql (U)Ordered By: Tracie Rai on 08-07-2023 Urobilinogen Ql (U) Normal mg/dl Normal [facility] Stool gastrointestinal hemog lobin detection by immunologic methodOrdered By: Maurice Leon on 07-28-2023 Lower GI hemoglobin IA Ql (Stl) [facility] Absolute lymphocyte countOrd ered By: Maurice Leon on 07-27-2023 Lymphocytes Auto (Unsp spec) [#/Vol] 2.38 10*3/uL 0.83-4.51 [facility] Basophil percentageOrdered B y: Maurice Leon on 07-27-2023 Lactate [Moles/Vol] 0.8 mmol/L 0.4-2.0 [facility] Basophils/100 WBC (Bld) 0.4 % 0-1 [facility] Bilirubin [Mass/Vol] 0.10 mg/dL 0.20-1.00 [facility] Comment on above: For patients on eltr ombopag therapy, use of Dimension [place] TBIL is not recommended. Chloride [Moles/Vol] 108 mmol/L 98-107 [facility] Eosinophils/100 WBC (Bld) 0.6 % 0-5 [facility] Glucose [Mass/Vol] 93 mg/dL 74-106 [facility] Neutrophils (Bld) [#/Vol] 11.9 10*3/uL 2.0-7.7 [facility] Neutrophils/100 WBC (Bld) 74.3 % 47-70 [facility] Potassium [Moles/Vol] 3.8 mmol/L 3.5-5.1 [facility] Protein [Mass/Vol] 7.4 g/dL 6.4-8.2 [facility] Sodium [Moles/Vol] 142 mmol/L 136-145 [facility] WBC (Bld) [#/Vol] 16.0 10*3/uL 4.4-11.0 [facility] Basophil percentage 0-5 SEEN /hpf 0-5 [facility] Beta hCG serum qualOrdered B y: Maurice Leon on 07-27-2023 Beta HCG ( test) Ql Negative [facility] Bilirubin Test strip Ql (U)O rdered By: Maurice Leon on 07-27-2023 Bilirubin Ql (U) Negative Negative [facility] Blood erythrocytes count (nu mber/volume)Ordered By: Maurice Leon on 07-27-2023 RBC (Bld) [#/Vol] 4.23 10*6/uL 4.2-5.4 [facility] Blood hemoglobin measurement (mass/volume)Ordered By: Maurice Leon on 07-27-2023 Hemoglobin (Bld) [Mass/Vol] 14.1 g/dL 12.0-15.0 [facility] Blood lymphocytes/100 leukoc ytesOrdered By: Maurice Leon on 07-27-2023 Lymphocytes/100 WBC (Bld) 14.9 % 19-41 [facility] Blood monocytes/100 leukocyt esOrdered By: Maurice Leon on 07-27-2023 Monocytes/100 WBC (Bld) 8.6 % 0-10 [facility] Blood platelet mean volumeOr dered By: Maurice Leon on 07-27-2023 Platelet mean volume (Bld) [Entitic vol] 9.9 fL 6.2-12.0 [facility] Determination of erythrocyte mean corpuscular volume (MCV)Ordered By: Maurice Leon on 07-27-2023 MCV (RBC) [Entitic vol] 100.2 fL 81-99 [facility] Hematocrit Auto (Bld) [Volum e fraction]Ordered By: Maurice Leon on 07-27-2023 Hematocrit (Bld) [Volume fraction] 42.4 % 37-47 [facility] Ketones Test strip Ql (U)Ord ered By: Maurice Leon on 07-27-2023 Ketones Ql (U) Negative Negative [facility] Laboratory - Chemistry and C hemistry - challengeOrdered By: Maurice Leon on 07-27-2023 ALP [Catalytic activity/Vol] 96 U/L 45-117 [facility] ALT [Catalytic activity/Vol] 36 U/L 13-56 [facility] CO2 [Moles/Vol] 29.0 mmol/L 21.0-32.0 [facility] Globulin (S) [Mass/Vol] 3.7 g/dL 2.2-4.2 [facility] Lipase [Catalytic activity/Vol] 74 U/L 13-75 [facility] Comment on above: Please note:LIPASE r evised reference range effective 23. New Lipase methodology. Expected to produce lower values than the previous assay method. NEW Reference Range: 13 - 75 U/L Urea nitrogen/Creatinine [Mass ratio] 15.9 mg/mg 10-20 [facility] Laboratory - Hematology and Cell countsOrdered By: Maurice Leon on 07-27-2023 Erythrocyte distribution width (RBC) [Entitic vol] 45.2 fL 35.1-43.9 [facility] Erythrocyte distribution width (RBC) [Ratio] 12.3 % 11.6-14.6 [facility] Immature granulocytes/100 WBC (Bld) 1.200 % 0.0-0.9 [facility] Comment on above: IG% - Immature Granu locytes (promyelocytes, myelocytes and metamyelocytes) > 1% indicates that a LEFT SHIFT is Present. MCH (RBC) [Entitic mass] 33.3 pg 27.0-32.0 [facility] Nucleated RBC/100 WBC (Bld) [Ratio] 0 % 0-5 [facility] MCHC Auto (RBC) [Mass/Vol]Or dered By: Maurice Leon on 07-27-2023 MCHC (RBC) [Mass/Vol] 33.3 g/dL 32-36 [facility] Mucus LM Ql (Urine sed)Order ed By: Maurice Leon on 07-27-2023 Mucus Ql (Urine sed) 0 SEEN /hpf [facility] Nitrite Test strip Ql (U)Ord ered By: Maurice Leon on 07-27-2023 Nitrite Ql (U) Negative Negative [facility] No Panel InformationOrdered By: Maurice Leon on 07-27-2023 Estimated Creatinine Clearance Calc 81.11 ml/min [facility] Estimated GFR (MDRD) Amer 101 mL/min >60 [facility] Comment on above: GFR Calc Estimated GFR (MDRD) Non-Af Amer 83 mL/min >60 [facility] Comment on above: Non- GFR Calc Platelets bldOrdered By: Yuri Leon on 07-27-2023 Platelets (Bld) [#/Vol] 325 10*3/uL 150-450 [facility] Protein Test strip Ql (U)Ord ered By: Maurice Leon on 07-27-2023 Protein Ql (U) 15 mg/dl Negative [facility] Serum or plasma albumin julius urement (mass/volume)Ordered By: Maurice Leon on 07-27-2023 Albumin [Mass/Vol] 3.7 g/dL 3.2-5.0 [facility] Serum or plasma albumin/glob ulin mass ratioOrdered By: Maurice Leon on 07-27-2023 Albumin/Globulin [Mass ratio] 1.0 {ratio} 0.9-2.4 [facility] Serum or plasma calcium julius urement (mass/volume)Ordered By: Maurice Leon on 07-27-2023 Calcium [Mass/Vol] 9.0 mg/dL 8.5-10.1 [facility] Serum or plasma creatinine m easurement (mass/volume)Ordered By: Maurice Leon on 07-27-2023 Creatinine [Mass/Vol] 0.82 mg/dL 0.55-1.02 [facility] Comment on above: The validity of the calculated GFR & GFRAA in patients over 70 years has not been determined. Clinical correlation is essential. Serum or plasma urea nitroge n measurement (mass/volume)Ordered By: Maurice Leon on 07-27-2023 Urea nitrogen [Mass/Vol] 13 mg/dL 7-18 [facility] Squamous epithelial cells de tection in urine sediment by light microscopyOrdered By: Maurice Leon on 07-27-2023 Epithelial cells.squamous LM Ql (Urine sed) 5-10 SEEN /hpf 5-10 [facility] Stool gastrointestinal hemog lobin detection by immunologic methodOrdered By: Maurice Leon on 07-27-2023 Lower GI hemoglobin IA Ql (Stl) [facility] Thin prep Papanicolaou smear with manual screeningOrdered By: Maurice Leon on 07-27-2023 Thin prep Papanicolaou smear with manual screening 20 U/L 15-37 [facility] Thin prep Papanicolaou smear with manual screening 5 5-15 [facility] Urine blood detectionOrdered By: Maurice Leon on 07-27-2023 RBC Ql (U) 250 /ul Negative [facility] RBC Ql (U) 10-25 SEEN /hpf 0-5 [facility] Urine clarityOrdered By: Yuri Leon on 07-27-2023 Clarity (U) Clear Clear [facility] Urine color determinationOrd ered By: Maurice Leon on 07-27-2023 Color (U) Yellow Yellow [facility] Urine glucose detectionOrder ed By: Maurice Leon on 07-27-2023 Glucose Ql (U) Normal mg/dl Normal [facility] Urine leukocyte esterase det ection by dipstickOrdered By: Maurice Leon on 07-27-2023 Leukocyte esterase Test strip Ql (U) 100 /ul Negative [facility] Urine pHOrdered By: Maurice slaughter on 07-27-2023 pH (U) 7.0 [pH] 5.0 - 8.0 [facility] Urine sediment bacteria coun t by microscopy (number/high power field)Ordered By: Maurice Leon on 07-27-2023 Bacteria LM.HPF (Urine sed) [#/Area] 0 /[HPF] None Seen [facility] Urine specific gravity measu rementOrdered By: Maurice Leon on 07-27-2023 Specific gravity (U) [Rel density] 1.015 1.002-1.030 [facility] Urobilinogen Auto test strip Ql (U)Ordered By: Maurice Leon on 07-27-2023 Urobilinogen Ql (U) Normal mg/dl Normal [facility] Absolute lymphocyte countOrd ered By: Ronal Bernard on 06-26-2023 Lymphocytes Auto (Unsp spec) [#/Vol] 2.09 10*3/uL 0.83-4.51 [facility] Basophil percentageOrdered B y: Ronal Bernard on 06-26-2023 Basophils/100 WBC (Bld) 0.5 % 0-1 [facility] Chloride [Moles/Vol] 107 mmol/L 98-107 [facility] Eosinophils/100 WBC (Bld) 0.7 % 0-5 [facility] Glucose [Mass/Vol] 98 mg/dL 74-106 [facility] Neutrophils (Bld) [#/Vol] 7.0 10*3/uL 2.0-7.7 [facility] Neutrophils/100 WBC (Bld) 66.6 % 47-70 [facility] Potassium [Moles/Vol] 3.3 mmol/L 3.5-5.1 [facility] Sodium [Moles/Vol] 139 mmol/L 136-145 [facility] WBC (Bld) [#/Vol] 10.5 10*3/uL 4.4-11.0 [facility] Basophil percentage 0 SEEN /hpf 0-5 [facility] Bilirubin Test strip Ql (U)O rdered By: Ronal Bernard on 06-26-2023 Bilirubin Ql (U) Negative Negative [facility] Blood erythrocytes count (nu mber/volume)Ordered By: Ronal Bernard on 06-26-2023 RBC (Bld) [#/Vol] 4.10 10*6/uL 4.2-5.4 [facility] Blood hemoglobin measurement (mass/volume)Ordered By: Ronal Bernard on 06-26-2023 Hemoglobin (Bld) [Mass/Vol] 13.6 g/dL 12.0-15.0 [facility] Blood lymphocytes/100 leukoc ytesOrdered By: Ronal Bernard on 06-26-2023 Lymphocytes/100 WBC (Bld) 19.9 % 19-41 [facility] Blood monocytes/100 leukocyt esOrdered By: Ronal Bernard on 06-26-2023 Monocytes/100 WBC (Bld) 11.7 % 0-10 [facility] Blood platelet mean volumeOr dered By: Ronal Bernard on 06-26-2023 Platelet mean volume (Bld) [Entitic vol] 9.5 fL 6.2-12.0 [facility] Determination of erythrocyte mean corpuscular volume (MCV)Ordered By: Ronal Bernard on 06-26-2023 MCV (RBC) [Entitic vol] 97.6 fL 81-99 [facility] Hematocrit Auto (Bld) [Volum e fraction]Ordered By: Ronal Bernard on 06-26-2023 Hematocrit (Bld) [Volume fraction] 40.0 % 37-47 [facility] Ketones Test strip Ql (U)Ord ered By: Ronal Bernard on 06-26-2023 Ketones Ql (U) 5 mg/dl Negative [facility] Laboratory - Chemistry and C hemistry - challengeOrdered By: Ronal Bernard on 06-26-2023 CO2 [Moles/Vol] 26.0 mmol/L 21.0-32.0 [facility] Urea nitrogen/Creatinine [Mass ratio] 18.5 mg/mg 10-20 [facility] Laboratory - Hematology and Cell countsOrdered By: Ronal Bernard on 06-26-2023 Erythrocyte distribution width (RBC) [Entitic vol] 43.0 fL 35.1-43.9 [facility] Erythrocyte distribution width (RBC) [Ratio] 12.0 % 11.6-14.6 [facility] Immature granulocytes/100 WBC (Bld) 0.600 % 0.0-0.9 [facility] Comment on above: IG% - Immature Granu locytes (promyelocytes, myelocytes and metamyelocytes) > 1% indicates that a LEFT SHIFT is Present. MCH (RBC) [Entitic mass] 33.2 pg 27.0-32.0 [facility] Nucleated RBC/100 WBC (Bld) [Ratio] 0 % 0-5 [facility] MCHC Auto (RBC) [Mass/Vol]Or dered By: Ronal Bernard on 06-26-2023 MCHC (RBC) [Mass/Vol] 34.0 g/dL 32-36 [facility] Mucus LM Ql (Urine sed)Order ed By: Ronal Bernard on 06-26-2023 Mucus Ql (Urine sed) 0 SEEN /hpf [facility] Neisseria gonorrhoeae genita l PCROrdered By: Ronal Bernard on 06-26-2023 N. gonorrhoeae DNA GABBY+probe Ql (Genital specimen) [facility] N. gonorrhoeae DNA GABBY+probe Ql (Genital specimen) [facility] Nitrite Test strip Ql (U)Ord ered By: Ronal Bernard on 06-26-2023 Nitrite Ql (U) Negative Negative [facility] No Panel InformationOrdered By: Ronal Bernard on 06-26-2023 Chlamydia trachomatis (PCR) [facility] Estimated Creatinine Clearance Calc 87.52 ml/min [facility] Estimated GFR (MDRD) Amer 110 mL/min >60 [facility] Comment on above: GFR Calc Estimated GFR (MDRD) Non-Af Amer 91 mL/min >60 [facility] Comment on above: Non- GFR Calc Troponin I High Sensitivity 5 pg/mL 3.0-54.0 [facility] Comment on above: Please Note: New Verna t Units and Gender Specific Reference Ranges. For more information see Policy Stat Procedure [place] High Sensitivity Troponin (TNIH) and attachments. Chlamydia trachomatis (PCR) [facility] Platelets bldOrdered By: Ronal Bernard on 06-26-2023 Platelets (Bld) [#/Vol] 406 10*3/uL 150-450 [facility] Protein Test strip Ql (U)Ord ered By: Ronal Bernard on 06-26-2023 Protein Ql (U) Negative Negative [facility] Serum or plasma calcium julius urement (mass/volume)Ordered By: Ronal Bernard on 06-26-2023 Calcium [Mass/Vol] 8.8 mg/dL 8.5-10.1 [facility] Serum or plasma creatinine m easurement (mass/volume)Ordered By: Ronal Bernard on 06-26-2023 Creatinine [Mass/Vol] 0.76 mg/dL 0.55-1.02 [facility] Comment on above: The validity of the calculated GFR & GFRAA in patients over 70 years has not been determined. Clinical correlation is essential. Serum or plasma urea nitroge n measurement (mass/volume)Ordered By: Ronal Bernard on 06-26-2023 Urea nitrogen [Mass/Vol] 14 mg/dL 7-18 [facility] Squamous epithelial cells de tection in urine sediment by light microscopyOrdered By: Ronal Bernard on 06-26-2023 Epithelial cells.squamous LM Ql (Urine sed) 0 SEEN /hpf 5-10 [facility] Thin prep Papanicolaou smear with manual screeningOrdered By: Ronal Bernard on 06-26-2023 Thin prep Papanicolaou smear with manual screening 6 5-15 [facility] Urine blood detectionOrdered By: Ronal Bernard on 06-26-2023 RBC Ql (U) Negative Negative [facility] RBC Ql (U) 0 SEEN /hpf 0-5 [facility] Urine clarityOrdered By: Ronal Bernard on 06-26-2023 Clarity (U) Clear Clear [facility] Urine color determinationOrd ered By: Ronal Bernard on 06-26-2023 Color (U) Yellow Yellow [facility] Urine glucose detectionOrder ed By: Ronal Bernard on 06-26-2023 Glucose Ql (U) Normal mg/dl Normal [facility] Urine leukocyte esterase det ection by dipstickOrdered By: Ronal Bernard on 06-26-2023 Leukocyte esterase Test strip Ql (U) Negative Negative [facility] Urine pHOrdered By: Ronal munguia on 06-26-2023 pH (U) 6.0 [pH] 5.0 - 8.0 [facility] Urine sediment bacteria coun t by microscopy (number/high power field)Ordered By: Ronal Bernard on 06-26-2023 Bacteria LM.HPF (Urine sed) [#/Area] 0 /[HPF] None Seen [facility] Urine specific gravity measu rementOrdered By: Ronal Bernard on 06-26-2023 Specific gravity (U) [Rel density] 1.010 1.002-1.030 [facility] Urobilinogen Auto test strip Ql (U)Ordered By: Ronalezra Bernard on 06-26-2023 Urobilinogen Ql (U) Normal mg/dl Normal [facility] Absolute lymphocyte countOrd ered By: Maurice Leon on 06-20-2023 Lymphocytes Auto (Unsp spec) [#/Vol] 1.92 10*3/uL 0.83-4.51 [facility] Basophil percentageOrdered B y: Maurice Leon on 06-20-2023 Basophil percentage 25-50 SEEN /hpf 0-5 [facility] Basophils/100 WBC (Bld) 0.3 % 0-1 [facility] Bilirubin [Mass/Vol] 0.20 mg/dL 0.20-1.00 [facility] Comment on above: For patients on eltr ombopag therapy, use of Dimension [place] TBIL is not recommended. Chloride [Moles/Vol] 104 mmol/L 98-107 [facility] Eosinophils/100 WBC (Bld) 0.5 % 0-5 [facility] Glucose [Mass/Vol] 90 mg/dL 74-106 [facility] Neutrophils (Bld) [#/Vol] 9.4 10*3/uL 2.0-7.7 [facility] Neutrophils/100 WBC (Bld) 74.3 % 47-70 [facility] Potassium [Moles/Vol] 3.9 mmol/L 3.5-5.1 [facility] Protein [Mass/Vol] 8.2 g/dL 6.4-8.2 [facility] Sodium [Moles/Vol] 137 mmol/L 136-145 [facility] WBC (Bld) [#/Vol] 12.7 10*3/uL 4.4-11.0 [facility] Bilirubin Test strip Ql (U)O rdered By: Maurice Leon on 06-20-2023 Bilirubin Ql (U) Negative Negative [facility] Blood erythrocytes count (nu mber/volume)Ordered By: Maurice Leon on 06-20-2023 RBC (Bld) [#/Vol] 4.34 10*6/uL 4.2-5.4 [facility] Blood hemoglobin measurement (mass/volume)Ordered By: Maurice Leon on 06-20-2023 Hemoglobin (Bld) [Mass/Vol] 14.5 g/dL 12.0-15.0 [facility] Blood lymphocytes/100 leukoc ytesOrdered By: Maurice Leon on 06-20-2023 Lymphocytes/100 WBC (Bld) 15.1 % 19-41 [facility] Blood monocytes/100 leukocyt esOrdered By: Maurice Leon on 06-20-2023 Monocytes/100 WBC (Bld) 9.1 % 0-10 [facility] Blood platelet mean volumeOr dered By: Maurice Leon on 06-20-2023 Platelet mean volume (Bld) [Entitic vol] 9.5 fL 6.2-12.0 [facility] Culture, urineOrdered By: Lucita Leon on 06-20-2023 Bacteria identified Cx Nom (U) Mixed Gram Pos & Gram Neg Org [facility] Bacteria identified Cx Nom (U) Mixed Gram Pos & Gram Neg Org [facility] Determination of erythrocyte mean corpuscular volume (MCV)Ordered By: Maurice Leon on 06-20-2023 MCV (RBC) [Entitic vol] 100.7 fL 81-99 [facility] Direct bilirubinOrdered By: Maurice Leon on 06-20-2023 Bilirubin.direct [Mass/Vol] 0.13 mg/dL 0.00-0.30 [facility] Hematocrit Auto (Bld) [Volum e fraction]Ordered By: Maurice Leon on 06-20-2023 Hematocrit (Bld) [Volume fraction] 43.7 % 37-47 [facility] INR in Blood by Coagulation assayOrdered By: Maurice Leon on 06-20-2023 INR Coag (Bld) [Relative time] 1.0 {INR} [facility] Ketones Test strip Ql (U)Ord ered By: Maurice Leon on 06-20-2023 Ketones Ql (U) Negative Negative [facility] Laboratory - Chemistry and C hemistry - challengeOrdered By: Maurice Leon on 06-20-2023 HCG ( test) Ql (U) Negative [facility] Comment on above: Very dilute urine sp ecimens, as indicated by a low specificgravity, may not contain loan representative levels of hCG. If is still suspected, a first morning urinespecimen should be collected 48 hours later and tested. ALP [Catalytic activity/Vol] 108 U/L 45-117 [facility] ALT [Catalytic activity/Vol] 31 U/L 13-56 [facility] CO2 [Moles/Vol] 29.0 mmol/L 21.0-32.0 [facility] Globulin (S) [Mass/Vol] 4.5 g/dL 2.2-4.2 [facility] Lipase [Catalytic activity/Vol] 35 U/L 13-75 [facility] Comment on above: Please note:LIPASE r evised reference range effective 23. New Lipase methodology. Expected to produce lower values than the previous assay method. NEW Reference Range: 13 - 75 U/L Urea nitrogen/Creatinine [Mass ratio] 15.0 mg/mg 10-20 [facility] Laboratory - CoagulationOrde red By: Maurice Leon on 06-20-2023 aPTT Coag (Bld) [Time] 28.9 s 24.1-36.2 [facility] PT Coag (PPP) [Time] 13.4 s 11.7-14.9 [facility] Laboratory - Hematology and Cell countsOrdered By: Maurice Leon on 06-20-2023 Erythrocyte distribution width (RBC) [Entitic vol] 44.0 fL 35.1-43.9 [facility] Erythrocyte distribution width (RBC) [Ratio] 11.9 % 11.6-14.6 [facility] Immature granulocytes/100 WBC (Bld) 0.700 % 0.0-0.9 [facility] Comment on above: IG% - Immature Granu locytes (promyelocytes, myelocytes and metamyelocytes) > 1% indicates that a LEFT SHIFT is Present. MCH (RBC) [Entitic mass] 33.4 pg 27.0-32.0 [facility] Nucleated RBC/100 WBC (Bld) [Ratio] 0 % 0-5 [facility] MCHC Auto (RBC) [Mass/Vol]Or dered By: Maurice Leon on 06-20-2023 MCHC (RBC) [Mass/Vol] 33.2 g/dL 32-36 [facility] Mucus LM Ql (Urine sed)Order ed By: Maurice Leon on 06-20-2023 Mucus Ql (Urine sed) 0 SEEN /hpf [facility] Nitrite Test strip Ql (U)Ord ered By: Maurice Leon on 06-20-2023 Nitrite Ql (U) Negative Negative [facility] No Panel InformationOrdered By: Maurice Leon on 06-20-2023 Estimated Creatinine Clearance Calc 83.14 ml/min [facility] Estimated GFR (MDRD) Amer 104 mL/min >60 [facility] Comment on above: GFR Calc Estimated GFR (MDRD) Non-Af Amer 86 mL/min >60 [facility] Comment on above: Non- GFR Calc Platelets bldOrdered By: Yuri Leon on 06-20-2023 Platelets (Bld) [#/Vol] 414 10*3/uL 150-450 [facility] Protein Test strip Ql (U)Ord ered By: Maurice Leon on 06-20-2023 Protein Ql (U) 30 mg/dl Negative [facility] Serum or plasma albumin julius urement (mass/volume)Ordered By: Maurice Leon on 06-20-2023 Albumin [Mass/Vol] 3.7 g/dL 3.2-5.0 [facility] Serum or plasma calcium julius urement (mass/volume)Ordered By: Maurice Leon on 06-20-2023 Calcium [Mass/Vol] 8.7 mg/dL 8.5-10.1 [facility] Serum or plasma creatinine m easurement (mass/volume)Ordered By: Maurice Leon on 06-20-2023 Creatinine [Mass/Vol] 0.80 mg/dL 0.55-1.02 [facility] Comment on above: The validity of the calculated GFR & GFRAA in patients over 70 years has not been determined. Clinical correlation is essential. Serum or plasma urea nitroge n measurement (mass/volume)Ordered By: Maurice Leon on 06-20-2023 Urea nitrogen [Mass/Vol] 12 mg/dL 7-18 [facility] Squamous epithelial cells de tection in urine sediment by light microscopyOrdered By: Maurice Leon on 06-20-2023 Epithelial cells.squamous LM Ql (Urine sed) 0-5 SEEN /hpf 5-10 [facility] Thin prep Papanicolaou smear with manual screeningOrdered By: Maurice Leon on 06-20-2023 Thin prep Papanicolaou smear with manual screening 15 U/L 15-37 [facility] Thin prep Papanicolaou smear with manual screening 4 5-15 [facility] Urine blood detectionOrdered By: Maurice Leon on 06-20-2023 RBC Ql (U) 250 /ul Negative [facility] RBC Ql (U) 25-50 SEEN /hpf 0-5 [facility] Urine clarityOrdered By: Yuri Leon on 06-20-2023 Clarity (U) Sl. Cloudy Clear [facility] Urine color determinationOrd ered By: Maurice Leon on 06-20-2023 Color (U) SEE COMMENT BELOW Yellow [facility] Comment on above: Visual Urine Color: [] Urine glucose detectionOrder ed By: Maurice Leon on 06-20-2023 Glucose Ql (U) Normal mg/dl Normal [facility] Urine leukocyte esterase det ection by dipstickOrdered By: Maurice Leon on 06-20-2023 Leukocyte esterase Test strip Ql (U) 500 /ul Negative [facility] Urine pHOrdered By: Maurice slaughter on 06-20-2023 pH (U) 7.0 [pH] 5.0 - 8.0 [facility] Urine sediment bacteria coun t by microscopy (number/high power field)Ordered By: Maurice Leon on 06-20-2023 Bacteria LM.HPF (Urine sed) [#/Area] 1 /[HPF] None Seen [facility] Urine specific gravity measu rementOrdered By: Maurice Leon on 06-20-2023 Specific gravity (U) [Rel density] 1.005 1.002-1.030 [facility] Urobilinogen Auto test strip Ql (U)Ordered By: Maurice Leon on 06-20-2023 Urobilinogen Ql (U) Normal mg/dl Normal [facility] CBC + DIFFon 02-22-2023 Baso # 0.00 x10EE3/UL Normal 0.00 - 0.10 [facility] Comment on above: Performed By: #### 2 [id number] #### [facility],[address] [place] [address]4880 Basophils/100 WBC (Bld) 0.2 % Normal 0.0 - 2.0 [facility] Comment on above: Performed By: #### 2 [id number] #### [facility],[address] [place] [address] 97255 CBC + DIFF Normal [facility] Comment on above: Result Comment: CBC- COMPLETE BLOOD COUNT Performed By: #### 2 [id number] #### [facility],[address] [place] [address] 48923 EO # 0.10 x10EE3/UL Normal 0.00 - 0.50 [facility] Comment on above: Performed By: #### 2 [id number] #### [facility],[address] [place] [address] 99061 Eosinophils/100 WBC (Bld) 0.6 % Normal 0.0 - 7.0 [facility] Comment on above: Performed By: #### 2 [id number] #### [facility],[address] [place] [address] 90028 Erythrocyte distribution width (RBC) [Ratio] 12.3 % Normal 12.0 - 15.6 [facility] Comment on above: Performed By: #### 2 [id number] #### [facility],[address] [place] [address] 32443 Hematocrit (Bld) [Volume fraction] 39.8 % Normal 34.0 - 46.0 [facility] Comment on above: Performed By: #### 2 [id number] #### [facility],[address] [place] [address] 95360 Hemoglobin (Bld) [Mass/Vol] 13.5 g/dL Normal 12.0 - 16.0 [facility] Comment on above: Performed By: #### 2 [id number] #### [facility],[address] [place] [address] Lymph # 1.30 x10EE3/UL Normal 0.80 - 2.80 [facility] Comment on above: Performed By: #### 2 [id number] #### [facility],[address] [place] [address] Lymphocytes/100 WBC (Bld) 11.1 % Low 20.0 - 45.0 [facility] Comment on above: Performed By: #### 2 95833 #### [facility],[address] [place], [place] [id number] MANUAL DIFF N/A Normal [facility] Comment on above: Performed By: #### 2 [id number] #### [facility],[address] [place], [place] [id number] MCH (RBC) [Entitic mass] 34 pg High 27 - 33 [facility] Comment on above: Performed By: #### 2 [id number] #### [facility],[address] [place] [address]376 MCHC 34 X10 3 Normal 32 - 36 [facility] Comment on above: Performed By: #### 2 [id number] #### [facility],[address] [place] [address] 30154 MCV (RBC) [Entitic vol] 101 fL High 80 - 99 [facility] Comment on above: Performed By: #### 2 79021 #### [facility],[address] [place] [address]2464 [place] # 0.90 x10EE3/UL Normal 0.20 - 1.00 [facility] Comment on above: Performed By: #### 2 [id number] #### [facility],[address] [place] [address] 58766 MONOS % 8.0 % Normal 0.0 - 10.0 [facility] Comment on above: Performed By: #### 2 63538 #### [facility],[address] [place] [address] 80951 Morphology Marvin (Bld) [Interp] N/A Normal [facility] Comment on above: Performed By: #### 2 [id number] #### [facility],[address] [place] [address] 04084 Neut # 9.40 x10EE3/UL High 1.50 - 7.10 [facility] Comment on above: Performed By: #### 2 56835 #### [facility],[address] [place] [address] 10014 Neutrophils/100 WBC (Bld) 80.1 % High 46.0 - 76.0 [facility] Comment on above: Performed By: #### 2 [id number] #### [facility],[address] [place] [address] 05631 PLATELET 332 x10EE3/UL Normal 150 - 450 [facility] Comment on above: Performed By: #### 2 10835 #### [facility],[address] [place] [address] 68848 Platelet mean volume (Bld) [Entitic vol] 8.4 fL Normal 6.6 - 10.5 [facility] Comment on above: Result Comment: AUTO MATED DIFFERENTIAL Performed By: #### 2 [id number] #### [facility],[address] [place] [address] 60317 RBC 3.95 x 10EE6/UL Low 4.10 - 5.30 [facility] Comment on above: Performed By: #### 2 76412 #### [facility],[address] [place] [address] 15647 WBC 11.8 x 10EE3/UL High 4.5 - 10.8 [facility] Comment on above: Performed By: #### 2 [id number] #### [facility],[address] [place] [address] 70687 CHEST 1 VIEWon 02-22-2023 CHEST 1 VIEW [place] [address] Patient: DELIA MERCHANT Phone#: : 1985 Age: 38 Gender: F Pt. Type: ER Account: [id number] Location: [facility] Ordering: DR. RADHA JOSHUA M.D. Exam Date: 02/22/2023/17:23 Family Phys: KATY PEDROZA Charge Code: [id number] Physician: Hubbard Order #: [id number] Dose#: PROCEDURE: X-RAY CHEST 1 VIEW COMPARISON: [facility], XR, CHEST 1 VIEW, 01/10/2023, 2:06. INDICATIONS: Chest pain. FINDINGS: LUNGS: Normal. No significant pulmonary parenchymal abnormalities. VASCULATURE: Normal. Unremarkable pulmonary vasculature. CARDIAC: Normal. No cardiac silhouette abnormality or cardiomegaly. MEDIASTINUM: Normal. No visible mass or adenopathy. PLEURA: Normal. No effusion or pleural thickening. BONES: Normal. No fracture or visible bony lesion. OTHER: Negative. CONCLUSION: No acute disease. No significant change has occurred. Dictated by: Keily Wade MD on 02/22/2023 at 18:08 Approved by: Keily Wade MD on 02/22/2023 at 18:09 Normal [facility] CMP with eGFRon 02-22-2023 AGE 38 years Normal [facility] Comment on above: Performed By: #### 2 [id number] #### [facility],[address] [place] [address] 89702 Albumin [Mass/Vol] 3.4 g/dL Normal 3.4 - 5.0 [facility] Comment on above: Performed By: #### 2 [id number] #### [facility],[address] [place] [address] 10425 Albumin/Globulin [Mass ratio] 0.9 {ratio} Normal 0.9 - 1.6 [facility] Comment on above: Performed By: #### 2 [id number] #### [facility],[address] [place] [address] 44847 ALK PHOS 103 U/L Normal 46 - 116 [facility] Comment on above: Performed By: #### 2 [id number] #### [facility],[address] [place] [address] 67370 ALT [Catalytic activity/Vol] 34 U/L Normal 14 - 59 [facility] Comment on above: Performed By: #### 2 [id number] #### [facility],[address] [place] [address] 50418 Anion gap [Moles/Vol] 13 mmol/L Normal 10 - 20 [facility] Comment on above: Performed By: #### 2 [id number] #### [facility],[address] [place] [address] 78365 AST [Catalytic activity/Vol] 26 U/L Normal 13 - 39 [facility] Comment on above: Performed By: #### 2 [id number] #### [facility],[address] [place] [address] 24171 B/C RATIO 11 ratio Normal 0 - 30 [facility] Comment on above: Performed By: #### 2 53581 #### [facility],[address] [place] [address] 40335 Bilirubin [Mass/Vol] 0.4 mg/dL Normal 0.2 - 1.0 [facility] Comment on above: Performed By: #### 2 23831 #### [facility],[address] [place] [address] 54090 Calcium [Mass/Vol] 8.3 mg/dL Low 8.5 - 10.1 [facility] Comment on above: Performed By: #### 2 09026 #### [facility],[address] [place] [address] 82001 Chloride [Moles/Vol] 107 mmol/L Normal 98 - 107 [facility] Comment on above: Performed By: #### 2 08910 #### [facility],[address] [place] [address] 88112 CMP with eGFR Normal [facility] Comment on above: Result Comment: COMP REHENSIVE METABOLIC PANEL Performed By: #### 2 90069 #### [facility],[address] [place] [address] 72411 CO2 [Moles/Vol] 25.4 mmol/L Normal 21.0 - 32.0 [facility] Comment on above: Performed By: #### 2 65957 #### [facility],[address] [place], [place] [id number] Creatinine [Mass/Vol] 0.85 mg/dL Normal 0.55 - 1.02 [facility] Comment on above: Performed By: #### 2 99762 #### [facility],[address] [place] [address] 65431 GFR/1.73 sq M.predicted among non-blacks MDRD (S/P/Bld) [Vol rate/Area] mL/min/{1.73_m2} Normal 60 - 999 [facility] Comment on above: Performed By: #### 2 99078 #### [facility],[address] [place], [place] [id number] Result Comment: ACCO RDING TO THE NATIONAL KIDNEY DISEASE EDUCATION PROGRAM(NKDE), A NORMAL eGFR IS A VALUE GREATER THAN OR EQUAL TO 60 ML/MIN/1.73 SQ METERS. CHRONIC KIDNEY DISEASE: <60mL/MIN/1.73 SQ METERS KIDNEY FAILURE: <15mL/MIN/1.73 SQ METERS THIS TEST SHOULD ONLY BE USED FOR PATIENTS 18 YEARS OF AGE AND OLDER. Globulin (S) [Mass/Vol] 3.8 g/dL Normal 1.5 - 3.8 [facility] Comment on above: Performed By: #### 2 [id number] #### [facility],[address] [place] [address] 73506 Glucose [Mass/Vol] 85 mg/dL Normal 74 - 106 [facility] Comment on above: Performed By: #### 2 84120 #### [facility],[address] [place] [address] 73871 Potassium [Moles/Vol] 3.5 mmol/L Normal 3.5 - 5.1 [facility] Comment on above: Performed By: #### 2 66018 #### [facility],[address] [place] [address] 17007 Protein [Mass/Vol] 7.2 g/dL Normal 6.4 - 8.2 [facility] Comment on above: Performed By: #### 2 41591 #### [facility],[address] [place] [address] 56730 Sodium [Moles/Vol] 142 mmol/L Normal 136 - 145 [facility] Comment on above: Performed By: #### 2 75342 #### [facility],[address] [place] [address] 97543 Urea nitrogen [Mass/Vol] 9 mg/dL Normal 7 - 18 [facility] Comment on above: Performed By: #### 2 68948 #### [facility],[address] [place] [address] ABDOMEN/PELVIS [facility] 2022 CT ABDOMEN/PELVIS [place] [address] Patient: DELIA MERCHANT Phone#: : 1985 Age: 38 Gender: F Pt. Type: ER Account: [id number] Location: [facility] Ordering: DR. RADHA JOSHUA M.D. Exam Date: 02/22/2023/17:11 Family Phys: KATY PEDROZA Charge Code: 297418 Physician: Hubbard Order #: [id number] Dose#: 9.60 mGy PROCEDURE: CT ABDOMEN/PELVIS WITH CONTRAST COMPARISON: [facility], CT, ABDOMEN/PELVIS W CON, 01/06/2023, 23:25. INDICATIONS: Abdomen pain. TECHNIQUE: After obtaining the patient's consent, CT images were created with non-ionic intravenous contrast material. All CT scans at this facility use dose modulation, iterative reconstruction, and/or weight based dosing when appropriate to reduce radiation dose to as low as reasonably achievable. IV CONTRAST: Omnipaque 350,80ml TOTAL DOSE: 9.6 CTDIvol(mGy) FINDINGS: LIVER: Normal. No enlargement, atrophy, abnormal density, or significant focal lesion. BILIARY: Gallbladder is absent PANCREAS: Normal. No lesion, fluid collection, ductal dilatation, or atrophy. SPLEEN: Normal. No enlargement or focal lesion. KIDNEYS: Kidneys enhance and excrete contrast symmetrically. No hydronephrosis. Low-attenuation lesion in the left upper and lower pole, too small to characterize. ADRENALS: Normal. No mass or enlargement. AORTA/VASCULAR: No aortic aneurysm. RETROPERITONEUM: Normal. No mass or adenopathy. BOWEL/MESENTERY: There is thickening of the ascending colon and hepatic flexure. Moderate stool burden. No bowel obstruction dilatation. The appendix is not visualized. ABDOMINAL WALL: Normal. No mass or hernia. URINARY BLADDER: Normal. No visible focal wall thickening, lesion, or calculus. PELVIC NODES: Normal. No adenopathy. PELVIC ORGANS: Uterus is present. Follicles in the left ovary. BONES: Normal. No bony lesion or fracture. LUNG BASES: Normal. No visible pulmonary or pleural disease. Continued Report - Page 2 of 2 Patient: DELIA MERCHANT Phone#: : 1985 Age: 38 Gender: F Pt. Type: ER Account: [id number] Location: [id number] Ordering: DR. RADHA JOSHUA M.D. Exam Date: 02/22/2023/17:11 Family Phys: KATY PEDROZA Charge Code: 780887 Physician: Hubbard Order #: [id number] Dose#: 9.60 mGy OTHER: Negative. CONCLUSION: 1. No traumatic acute intra-abdominal or pelvic abnormality identified. 2. Thickening of the ascending colon hepatic flexure, correlate for colitis. Dictated by: Keily Wade MD on 02/22/2023 at 18:09 Approved by: Kiely Wade MD on 02/22/2023 at 18:13 Normal [facility] LIPASEon 02-22-2023 Lipase [Catalytic activity/Vol] 53.0 U/L Low 73.0 - 393 [facility] Comment on above: Performed By: #### 2 [id number] #### [facility],[address] [place] [address] TROPONIN I, HIGH SENSITIVITY on 02-22-2023 HS TROPONIN 5.2 pg/mL Normal 0.0 - 51.4 [facility] Comment on above: Performed By: #### 2 87075 #### [facility],[address] [place] [address] Amorphous sediment detection in urine sediment by light microscopyOrdered By: Dr. Grady on 10-19-2022 Amorphous sediment LM Ql (Urine sed) 3+ [facility] Basophil percentageOrdered B y: Dr. Grady on 10-19-2022 Basophil percentage >100 SEEN /hpf 0-5 [facility] Bilirubin Test strip Ql (U)O rdered By: Dr. Grady on 10-19-2022 Bilirubin Ql (U) Negative Negative [facility] Ketones Test strip Ql (U)Ord ered By: Dr. Grady on 10-19-2022 Ketones Ql (U) Negative Negative [facility] Laboratory - Chemistry and C hemistry - challengeOrdered By: Dr. Grady on 10-19-2022 HCG ( test) Ql (U) Negative [facility] Comment on above: Very dilute urine sp ecimens, as indicated by a low specificgravity, may not contain loan representative levels of hCG. If is still suspected, a first morning urinespecimen should be collected 48 hours later and tested. Mucus LM Ql (Urine sed)Order ed By: Dr. Grady on 10-19-2022 Mucus Ql (Urine sed) 0 SEEN /hpf [facility] Nitrite Test strip Ql (U)Ord ered By: Dr. Grady on 10-19-2022 Nitrite Ql (U) Positive Negative [facility] Protein Test strip Ql (U)Ord ered By: Dr. Grady on 10-19-2022 Protein Ql (U) 30 mg/dl Negative [facility] Squamous epithelial cells de tection in urine sediment by light microscopyOrdered By: Dr. Grady on 10-19-2022 Epithelial cells.squamous LM Ql (Urine sed) 0 SEEN /hpf 5-10 [facility] Urine blood detectionOrdered By: Dr. Grady on 10-19-2022 RBC Ql (U) 25 /ul Negative [facility] RBC Ql (U) 0-5 SEEN /hpf 0-5 [facility] Urine clarityOrdered By: Dr. Grady on 10-19-2022 Clarity (U) Cloudy Clear [facility] Urine color determinationOrd ered By: Dr. Grady on 10-19-2022 Color (U) Yellow Yellow [facility] Urine glucose detectionOrder ed By: Dr. Grady on 10-19-2022 Glucose Ql (U) Normal mg/dl Normal [facility] Urine leukocyte esterase det ection by dipstickOrdered By: Dr. Grady on 10-19-2022 Leukocyte esterase Test strip Ql (U) 500 /ul Negative [facility] Urine pHOrdered By: Dr. Amrita varghese on 10-19-2022 pH (U) 7.0 [pH] 5.0 - 8.0 [facility] Urine sediment bacteria coun t by microscopy (number/high power field)Ordered By: Dr. Grady on 10-19-2022 Bacteria LM.HPF (Urine sed) [#/Area] 4 /[HPF] None Seen [facility] Urine specific gravity measu rementOrdered By: Dr. Grady on 10-19-2022 Specific gravity (U) [Rel density] 1.010 1.002-1.030 [facility] Urobilinogen Auto test strip Ql (U)Ordered By: Dr. Grady on 10-19-2022 Urobilinogen Ql (U) 1 mg/dl Normal [facility] CBC With Platelet and Differ entialon 10-11-2018 Abs Imm Granulocytes 0.07 E9/L Normal [facility] Basophils #/vol (Bld) 0.04 E9/L Normal 0.00-0.[address] [facility] Basophils/100 WBC (Bld) 0.3 % Normal 0.0-2.0 [facility] Eosinophils #/vol (Bld) 0.15 E9/L Normal 0.05-0.50 [facility] Eosinophils/100 WBC (Bld) 1.0 % Normal 0.0-6.0 [facility] Erythrocyte distribution width Ratio (RBC) 13.3 fL Normal 11.5-15.0 [facility] Hematocrit Volume Fraction (Bld) 45.5 % Normal 34.0-48.0 [facility] Hemoglobin mass conc (Bld) 15.2 g/dL Normal 11.5-15.5 [facility] Imm Granulocytes 0.5 % Normal 0.0-5.0 [facility] Lymphocytes #/vol (Bld) 1.34 E9/L Low 1.50-4.00 [facility] Lymphocytes/100 WBC (Bld) 9.4 % Low 20.0-42.0 [facility] MCH Entitic mass (RBC) 31.8 pg Normal 26.0-35.0 [facility] MCHC mass conc (RBC) 33.4 % Normal 32.0-34.5 [facility] MCV Entitic volume (RBC) 95.2 fL Normal 80.0-99.9 [facility] Monocytes #/vol (Bld) 0.75 E9/L Normal 0.10-0.[address] [facility] Monocytes/100 WBC (Bld) 5.2 % Normal 2.0-12.0 [facility] Neutrophils #/vol (Bld) 11.97 E9/L High 1.80-7.30 [facility] Neutrophils/100 WBC (Bld) 83.6 % High 43.0-80.0 [facility] Platelet mean volume Entitic volume (Bld) 10.3 fL Normal 7.0-12.0 [facility] Platelets #/vol (Bld) 332 E9/L Normal 130-[address] [facility] RBC #/vol (Bld) 4.78 E12/L Normal 3.50-5.50 [facility] WBC #/vol (Bld) 14.3 E9/L High 4.5-11.[address] [facility] [address] ABDOMEN PELVIS W IV CONTR Nishant 10-11-2018 CT ABDOMEN PELVIS W IV CONTRAST Patient : 1985 Age: 33 years Gender: Female Order Date: 10/11/2018 11:30 AM EXAM: CT ABDOMEN PELVIS W IV CONTRAST NUMBER OF IMAGES \ views: INDICATION: ABDOMINAL PAIN COMPARISON: June 07, 2018. Technique: Low-dose CT acquisition technique included one of following options; 1 . Automated exposure control, 2. Adjustment of MA and or KV according to patient's size or 3. Use of iterative reconstruction. Multiple computerized tomography sections of the abdomen with sagittal and coronal MPR reconstructions were obtained from the top of the diaphragm to the pelvis. The visualized portions of the abdomen reveal: The lung bases are unremarkable. The liver is unremarkable. Intrahepatic and extrahepatic bile ducts are not dilated. Postsurgical absence of the gallbladder is noted. Great vessels are unremarkable. There is no evidence of ascites. There is no evidence of lymphadenopathy. The spleen is unremarkable. The kidneys are unremarkable The adrenals is unremarkable. The pancreas is unremarkable. There is no evidence of small bowel obstruction or large bowel obstruction.. Appendix is surgically absent. Fecal material is lytic all way down to the level of the anal verge. No evidence of free edge peritoneal gas. There is no evidence of-year-old gas in the bowel is no evidence for pleural venous gas. The bladder is unremarkable. Uterus and ovaries are also unremarkable currently. Notably, the approximately 10 cm greatest diameter right ovarian cyst extending over the urinary bladder present on the last study and also seen on previous sonography has totally resolved. IMPRESSION: Status post remote cholecystectomy. Status post remote appendectomy. Generalized unformed fecal material may indicate diarrhea. There is no evidence of bowel obstruction. Interpreted by: Pato Laboy MD Signed by: Pato Laboy MD 10/11/18 Final result Normal [facility] Comprehensive Metabolic Pane manfred 10-11-2018 Albumin mass conc 4.3 g/dL Normal 3.5-5.2 [facility] ALP enzyme act/vol 74 U/L Normal 35-104 [facility] ALT enzyme act/vol 22 U/L Normal 0-32 [facility] Anion gap molar conc 11 mmol/L Normal 7-16 [facility] AST enzyme act/vol 28 U/L Normal 0-31 [facility] Comment on above: Result Comment: Spec imen is moderately Hemolyzed. Result may be artificially increased. Bilirubin mass conc 0.3 mg/dL Normal 0.0-1.2 [facility] Calcium mass conc 9.4 mg/dL Normal 8.6-10.2 [facility] Chloride molar conc 102 mmol/L Normal 98-107 [facility] CO2 molar conc 24 mmol/L Normal 22-29 [facility] Creatinine mass conc 0.6 mg/dL Normal 0.5-1.0 [facility] GFR/1.73 sq M predicted among blacks MDRD vol rate/area (S/P/Bld) mL/min/{1.73_m2} Normal [facility] GFR/1.73 sq M predicted among non-blacks MDRD vol rate/area (S/P/Bld) mL/min/{1.73_m2} Normal >=60 [facility] Comment on above: Result Comment: Data Acquisition Technician katherine Kidney Disease: less than 60 ml/min/1.73 sq.m. Kidney Failure: less than 15 ml/min/1.73 sq.m. Results valid for patients 18 years and older. Glucose mass conc 113 mg/dL High 74-99 [facility] Potassium molar conc 4.6 mmol/L Normal 3.5-5.0 [facility] Comment on above: Result Comment: Spec imen is moderately Hemolyzed. Result may be artificially increased. Protein mass conc 8.3 g/dL Normal 6.4-8.3 [facility] Sodium molar conc 137 mmol/L Normal 132-146 [facility] Urea nitrogen mass conc 11 mg/dL Normal 6-20 [facility] Lactate, Sepsison 10-11-2018 Lactate, Sepsis 1.4 mmol/L Normal 0.5-1.9 [facility] Lipaseon 10-11-2018 Lipase enzyme act/vol 32 U/L Normal 13-[address] [facility] Urinalysis, reflex to micros copicon 10-11-2018 Bilirubin Ql (U) Negative Normal Negative [facility] Clarity Nom (U) Clear Normal Clear [facility] Color Nom (U) Yellow Normal Straw/Yellow [facility] Glucose Ql (U) Negative Normal Negative [facility] Hemoglobin Ql (U) Negative Normal Negative [facility] Ketones Ql (U) TRACE Abnormal Negative [facility] Leukocyte esterase Test strip Ql (U) Negative Normal Negative [facility] Nitrite Ql (U) Negative Normal Negative [facility] pH (U) 6.0 [pH] Normal 5.0-9.0 [facility] Protein Ql (U) Negative Normal Negative [facility] Specific gravity Relative Density (U) 1.025 Normal 1.005-1.030 [facility] Urobilinogen Qn (U) 0.2 {Huey'U}/dL Normal < 2.0 [facility] CBC With Platelet and Differ entialon 06-07-2018 Abs Imm Granulocytes 0.09 E9/L Normal [facility] Basophils Auto #/vol (Bld) 0.04 E9/L Normal 0.00-0.20 [facility] Basophils/100 WBC Auto (Bld) 0.4 % Normal 0.0-2.0 [facility] Eosinophils Auto #/vol (Bld) 0.15 E9/L Normal 0.05-0.50 [facility] Eosinophils/100 WBC Auto (Bld) 1.4 % Normal 0.0-6.0 [facility] Erythrocyte distribution width Auto Ratio (RBC) 12.6 fL Normal 11.5-15.0 [facility] Hematocrit Auto Volume Fraction (Bld) 40.4 % Normal 34.0-48.0 [facility] Hemoglobin mass conc (Bld) 13.9 g/dL Normal 11.5-15.5 [facility] Imm Granulocytes 0.8 % Normal 0.0-5.0 [facility] Lymphocytes Auto #/vol (Bld) 2.65 E9/L Normal 1.50-4.00 [facility] Lymphocytes/100 WBC Auto (Bld) 24.4 % Normal 20.0-42.0 [facility] MCH Auto Entitic mass (RBC) 35.2 pg High 26.0-35.0 [facility] MCHC Auto mass conc (RBC) 34.4 % Normal 32.0-34.5 [facility] MCV Auto Entitic volume (RBC) 102.3 fL High 80.0-99.9 [facility] Monocytes Auto #/vol (Bld) 1.08 E9/L High 0.10-0.95 [facility] Monocytes/100 WBC Auto (Bld) 9.9 % Normal 2.0-12.0 [facility] Neutrophils Auto #/vol (Bld) 6.86 E9/L Normal 1.80-7.30 [facility] Neutrophils/100 WBC Auto (Bld) 63.1 % Normal 43.0-80.0 [facility] Platelet mean volume Auto Entitic volume (Bld) 10.2 fL Normal 7.0-12.0 [facility] Platelets Auto #/vol (Bld) 265 E9/L Normal 130-450 [facility] RBC Auto #/vol (Bld) 3.95 E12/L Normal 3.50-5.50 [facility] WBC Auto #/vol (Bld) 10.9 E9/L Normal 4.5-11.[address] [facility] [address] ABDOMEN PELVIS W IV CONTR Nishant 06-07-2018 CT ABDOMEN PELVIS W IV CONTRAST Initial report created on 06/07/2018 1:39:19 AM EDTEXAM: CT Abdomen and Pelvis With Intravenous Contrast EXAM DATE/TIME: 06/07/2018 12:15 AM CLINICAL HISTORY: 33 years old, female; Pain; Abdominal pain; Prior surgery; Additional info: Rlq pain, HX of appendectomy, ovarian cysts, blood in urine TECHNIQUE: Axial computed tomography images of the abdomen and pelvis with intravenous contrast. All CT scans at this facility use at least one of these dose optimization techniques: automated exposure control; mA and/or kV adjustment per patient size (includes targeted exams where dose is matched to clinical indication); or iterative reconstruction. Coronal and sagittal reformatted images were created and reviewed. CONTRAST: 110 ml of isovue administered intravenously. COMPARISON: CT ABDOMEN PELVIS WO CONTRAST 04/30/2018 10:00 PM FINDINGS: Lower thorax: No acute findings. ABDOMEN: Liver: Normal. No mass. Gallbladder and bile ducts: Cholecystectomy. No calcified stones. No ductal dilation. Pancreas: Normal. No ductal dilation. Spleen: Normal. No splenomegaly. Adrenals: Normal. No mass. Kidneys and ureters: No hydronephrosis or nephrolithiasis present. 6 mm hypodensity in the left kidney may represent a cyst. Stomach and bowel: Copious amount stool present diffusely throughout the colon. Fluid-filled loops of small bowel. Mild concentric thickening of the wall of the small bowel, nonspecific without obstruction. Appendix: Appendix not visualized. PELVIS: Bladder: The urinary bladder is distended. A left-sided ureteral jet is identified. Reproductive: Unremarkable as visualized. ABDOMEN and PELVIS: Intraperitoneal space: Normal. No free air. No significant fluid collection. Bones/joints: No acute fracture. No dislocation. Soft tissues: Unremarkable. Vasculature: Normal. No abdominal aortic aneurysm. Lymph nodes: Normal. No enlarged lymph nodes. IMPRESSION: No acute abnormality, see above discussion.Copious amount stool present diffusely throughout the colon. Fluid-filled loops of small bowel. Mild concentric thickening of the wall of the small bowel, nonspecific without obstruction. This report has been electronically signed by Elva Ludwig MD.Interpreted by:Elva LudwigSigned by:Elva Ludwig06/07/inal result Normal [facility] Comprehensive Metabolic Pane manfred 06-07-2018 Albumin mass conc 3.9 g/dL Normal 3.5-5.2 [facility] ALP enzyme act/vol 76 U/L Normal 35-104 [facility] ALT enzyme act/vol 43 U/L High 0-32 [facility] Anion gap 3 molar conc 9 mmol/L Normal 7-16 [facility] AST enzyme act/vol 31 U/L Normal 0-31 [facility] Bilirubin mass conc mg/dL Normal 0.0-1.2 [facility] Calcium mass conc 9.4 mg/dL Normal 8.6-10.2 [facility] Chloride molar conc 103 mmol/L Normal 98-107 [facility] CO2 molar conc 26 mmol/L Normal 22-29 [facility] Creatinine mass conc 0.6 mg/dL Normal 0.5-1.0 [facility] GFR/1.73 sq M predicted among blacks MDRD vol rate/area (S/P/Bld) mL/min/{1.73_m2} Normal [facility] GFR/1.73 sq M predicted among non-blacks MDRD vol rate/area (S/P/Bld) mL/min/{1.73_m2} Normal >=60 [facility] Comment on above: Result Comment: Data Acquisition Technician katherine Kidney Disease: less than 60 ml/min/1.73 sq.m. Kidney Failure: less than 15 ml/min/1.73 sq.m.Results valid for patients 18 years and older. Glucose mass conc 82 mg/dL Normal 74-109 [facility] Potassium molar conc 3.9 mmol/L Normal 3.5-5.0 [facility] Protein mass conc 7.0 g/dL Normal 6.4-8.3 [facility] Sodium molar conc 138 mmol/L Normal 132-146 [facility] Urea nitrogen mass conc 15 mg/dL Normal 6-20 [facility] Culture, Urineon 06-07-2018 Culture, Urine Culture, Urine-: Culture, Urine-: Escherichia coli >100,000 CFU/ml --ORGANISM: Escherichia coli ANTIBIOTIC INTERPRETATION M.I.C. STATUS [ S = SUSCEPTIBLE R = RESISTANT I = INTERMEDIATE ] Amp icillin S =4 FCefazolin S <=4 FCefepime S <=1 FCeftriaxone S <=1 FConfirmatory ESBL - Neg FGentamicin S <=1 FImipenem S <=0.25 FLevofloxacin S <=0.12 FNitrofurantoin S <=16 FPiperacillin/Tazoba ctam S <=4 FTrimethoprim/Sulfam ethoxazole S <=20 F Normal [facility] ED Noteon 06-07-2018 HIM IP Note OR Correctional Supervisor Lieutenant Normal [facility] HIM IP Note OR Correctional Supervisor Lieutenant Normal [facility] HIM IP Note OR Correctional Supervisor Lieutenant Normal [facility] ED Provider Noteon 8 HIM IP Note OR Correctional Supervisor Lieutenant Normal [facility] Lactic Acidon 06-07-2018 Lactate molar conc 0.7 mmol/L Normal 0.5-2.2 [facility] Lipaseon 06-07-2018 Lipase enzyme act/vol 40 U/L Normal 13-60 [facility] Urinalysis, with microscopic on 06-07-2018 Bacteria LM.HPF #/area (Urine sed) FEW Abnormal [facility] Epithelial cells LM Ql (Urine sed) MANY Normal [facility] RBC Test strip #/vol (U) 5-10 Abnormal 0-2 [facility] WBC #/vol (U) 5-10 Normal 0-5 [facility] Bilirubin Ql (U) Negative Normal Negative [facility] Clarity Nom (U) SL CLOUDY Normal Clear [facility] Color Nom (U) BLOODY Normal Straw/Yellow [facility] Glucose Ql (U) Negative Normal Negative [facility] Hemoglobin Test strip Ql (U) LARGE Abnormal Negative [facility] Ketones Ql (U) Negative Normal Negative [facility] Leukocyte esterase Test strip Ql (U) TRACE Abnormal Negative [facility] Nitrite Test strip Ql (U) Negative Normal Negative [facility] pH Test strip (U) 6.5 [pH] Normal 5.0-9.0 [facility] Protein Test strip Ql (U) 30 mg/dL Abnormal Negative [facility] Specific gravity Relative Density (U) 1.010 Normal 1.005-1.030 [facility] Urobilinogen Test strip Qn (U) 0.2 {Huey'U}/dL Normal < 2.0 [facility] ED Noteon 05-22-2018 HIM IP Note OR Correctional Supervisor Lieutenant Normal [facility] HIM IP Note OR Correctional Supervisor Lieutenant Normal [facility] ED Provider Noteon 8 HIM IP Note OR Correctional Supervisor Lieutenant Normal [facility] Basic Metabolic Panelon 08- Anion gap 3 molar conc 11 mmol/L Normal 7-16 [facility] Calcium mass conc 9.1 mg/dL Normal 8.6-10.2 [facility] Chloride molar conc 104 mmol/L Normal 98-107 [facility] CO2 molar conc 26 mmol/L Normal 22-29 [facility] Creatinine mass conc 0.8 mg/dL Normal 0.5-1.0 [facility] GFR/1.73 sq M predicted among blacks MDRD vol rate/area (S/P/Bld) mL/min/{1.73_m2} Normal [facility] GFR/1.73 sq M predicted among non-blacks MDRD vol rate/area (S/P/Bld) mL/min/{1.73_m2} Normal >=60 [facility] Comment on above: Result Comment: Data Acquisition Technician katherine Kidney Disease: less than 60 ml/min/1.73 sq.m. Kidney Failure: less than 15 ml/min/1.73 sq.m.Results valid for patients 18 years and older. Glucose mass conc 106 mg/dL Normal 74-109 [facility] Potassium molar conc 3.5 mmol/L Normal 3.5-5.0 [facility] Sodium molar conc 141 mmol/L Normal 132-146 [facility] Urea nitrogen mass conc 7 mg/dL Normal 6-20 [facility] CBC With Platelet and Differ entialon 05-19-2018 Abs Imm Granulocytes 0.05 E9/L Normal [facility] Basophils Auto #/vol (Bld) 0.05 E9/L Normal 0.00-0.20 [facility] Basophils/100 WBC Auto (Bld) 0.5 % Normal 0.0-2.0 [facility] Eosinophils Auto #/vol (Bld) 0.10 E9/L Normal 0.05-0.50 [facility] Eosinophils/100 WBC Auto (Bld) 0.9 % Normal 0.0-6.0 [facility] Erythrocyte distribution width Auto Ratio (RBC) 13.2 fL Normal 11.5-15.0 [facility] Hematocrit Auto Volume Fraction (Bld) 41.1 % Normal 34.0-48.0 [facility] Hemoglobin mass conc (Bld) 14.2 g/dL Normal 11.5-15.5 [facility] Imm Granulocytes 0.5 % Normal 0.0-5.0 [facility] Lymphocytes Auto #/vol (Bld) 2.40 E9/L Normal 1.50-4.00 [facility] Lymphocytes/100 WBC Auto (Bld) 22.2 % Normal 20.0-42.0 [facility] MCH Auto Entitic mass (RBC) 34.5 pg Normal 26.0-35.0 [facility] MCHC Auto mass conc (RBC) 34.5 % Normal 32.0-34.5 [facility] MCV Auto Entitic volume (RBC) 99.8 fL Normal 80.0-99.9 [facility] Monocytes Auto #/vol (Bld) 0.86 E9/L Normal 0.10-0.95 [facility] Monocytes/100 WBC Auto (Bld) 8.0 % Normal 2.0-12.0 [facility] Neutrophils Auto #/vol (Bld) 7.33 E9/L High 1.80-7.30 [facility] Neutrophils/100 WBC Auto (Bld) 67.9 % Normal 43.0-80.0 [facility] Platelet mean volume Auto Entitic volume (Bld) 11.0 fL Normal 7.0-12.0 [facility] Platelets Auto #/vol (Bld) 226 E9/L Normal 130-450 [facility] RBC Auto #/vol (Bld) 4.12 E12/L Normal 3.50-5.50 [facility] WBC Auto #/vol (Bld) 10.8 E9/L Normal 4.5-11.5 [facility] ED Noteon 05-19-2018 HIM IP Note OR Correctional Supervisor Lieutenant Normal [facility] ED Provider Noteon 8 HIM IP Note OR Correctional Supervisor Lieutenant Normal [facility] Lactate, Sepsison 05-19-2018 Lactate, Sepsis 1.3 mmol/L Normal 0.5-1.9 [facility] US DUP ABD PEL RETRO SCROT L IMITEDon 05-19-2018 US DUP ABD PEL RETRO SCROT LIMITED Patient : 1985Age: 33 yearsGender: FemaleOrder Date: 05/19/2018 7:30 PMEXAM: US NON OB TRANSVAGINAL, ultrasound duplex pelvic Limited studyNUMBER OF IMAGES: 49 viewsINDICATION: rt ovarian cyst, rule out torsion COMPARISON: Pelvic ultrasound study May 05, 2018, documenting alarge right renal cystFindings:The uterus is anteverted, and measures 6.8 x 4.2 x 4.3 cm. There isno focal myometrial pathology, and the endometrial measures 11 mmthickness, including fluid in the uterine endometrium. Theendocervical canal is unremarkable. The right ovary measures 8.4 x 6.0 x 9.7 cm, including a right juxtaovarian or marginal cyst currently measuring up to 8.8 cm maximumdiameter. The left ovary measures 3.0 x 3.0 x 3.7 cm, and also shows aphysiologic cyst measuring 2.5 cm maximum diameter. Intact arterial and venous flow is documented by color and spectralDoppler imaging for both ovaries. . There is no evidence of free pelvic fluid..IMPRESSION: Adnexal vascularity is intact bilaterally, and the large right simpleadnexal cyst measures up to 8.8 cm on the current study, increasingrisk of torsion, without evidence of ischemia or complications at thistime.A smaller 2.5 cm cyst is noted in the left adnexa, and has somemarginal septation or debris.There is a small amount of intrauterine fluid, but no evidence ofdependent free pelvic fluid.Interpreted by:KEIRY Cadetigned by:Mattie Wolf MD05/19/18inal result Normal [facility] NON OB TRANSVAGINALon NON OB TRANSVAGINAL Patient : 1985Age: 33 yearsGender: FemaleOrder Date: 05/19/2018 7:30 PMEXAM: US NON OB TRANSVAGINAL, ultrasound duplex pelvic Limited studyNUMBER OF IMAGES: 49 viewsINDICATION: rt ovarian cyst, rule out torsion COMPARISON: Pelvic ultrasound study May 05, 2018, documenting alarge right renal cystFindings:The uterus is anteverted, and measures 6.8 x 4.2 x 4.3 cm. There isno focal myometrial pathology, and the endometrial measures 11 mmthickness, including fluid in the uterine endometrium. Theendocervical canal is unremarkable. The right ovary measures 8.4 x 6.0 x 9.7 cm, including a right juxtaovarian or marginal cyst currently measuring up to 8.8 cm maximumdiameter. The left ovary measures 3.0 x 3.0 x 3.7 cm, and also shows aphysiologic cyst measuring 2.5 cm maximum diameter. Intact arterial and venous flow is documented by color and spectralDoppler imaging for both ovaries. . There is no evidence of free pelvic fluid..IMPRESSION: Adnexal vascularity is intact bilaterally, and the large right simpleadnexal cyst measures up to 8.8 cm on the current study, increasingrisk of torsion, without evidence of ischemia or complications at thistime.A smaller 2.5 cm cyst is noted in the left adnexa, and has somemarginal septation or debris.There is a small amount of intrauterine fluid, but no evidence ofdependent free pelvic fluid.Interpreted by:KEIRY Cadetigned by:Mattie Wolf MD05/19/18Final result Normal [facility] Urinalysis, reflex to micros copicon 05-19-2018 Bilirubin Ql (U) SMALL Abnormal Negative [facility] Clarity Nom (U) SL CLOUDY Normal Clear [facility] Color Nom (U) Yellow Normal Straw/Yellow [facility] Glucose Ql (U) Negative Normal Negative [facility] Hemoglobin Test strip Ql (U) Negative Normal Negative [facility] Ketones Ql (U) TRACE Abnormal Negative [facility] Leukocyte esterase Test strip Ql (U) Negative Normal Negative [facility] Nitrite Test strip Ql (U) Negative Normal Negative [facility] pH Test strip (U) 6.0 [pH] Normal 5.0-9.0 [facility] Protein Test strip Ql (U) TRACE Normal Negative [facility] Specific gravity Relative Density (U) >=1.030 Normal 1.005-1.030 [facility] Urobilinogen Test strip Qn (U) 1.0 {Huey'U}/dL Normal < 2.0 [facility] Urine Microscopicon 05-19-20 18 Bacteria LM.HPF #/area (Urine sed) FEW Abnormal [facility] Epithelial cells LM Ql (Urine sed) FEW Normal [facility] RBC Test strip #/vol (U) NONE Normal 0-2 [facility] Urine Mucous Present Normal [facility] WBC #/vol (U) 10-20 Abnormal 0-5 [facility] CBC With Platelet No Differe ntialon 05-05-2018 Erythrocyte distribution width Ratio (RBC) 12.0 fL Normal 11.5-15.0 [facility] Hematocrit Volume Fraction (Bld) 42.3 % Normal 34.0-48.0 [facility] Hemoglobin mass conc (Bld) 15.2 g/dL Normal 11.5-15.5 [facility] MCH Entitic mass (RBC) 34.9 pg Normal 26.0-35.0 [facility] MCHC mass conc (RBC) 35.9 % High 32.0-34.5 [facility] MCV Entitic volume (RBC) 97.2 fL Normal 80.0-99.9 [facility] Platelet mean volume Entitic volume (Bld) 10.3 fL Normal 7.0-12.0 [facility] Platelets #/vol (Bld) 237 E9/L Normal 130-[address] [facility] RBC #/vol (Bld) 4.35 E12/L Normal 3.50-5.50 [facility] WBC #/vol (Bld) 11.1 E9/L Normal 4.5-11.5 [facility] Comprehensive Metabolic Pane manfred 05-05-2018 Albumin mass conc 4.5 g/dL Normal 3.5-5.2 [facility] ALP enzyme act/vol 76 U/L Normal 35-104 [facility] ALT enzyme act/vol 24 U/L Normal 0-32 [facility] Anion gap molar conc 13 mmol/L Normal 7-16 [facility] AST enzyme act/vol 24 U/L Normal 0-31 [facility] Bilirubin mass conc 0.6 mg/dL Normal 0.0-1.2 [facility] Calcium mass conc 9.6 mg/dL Normal 8.6-10.2 [facility] Chloride molar conc 102 mmol/L Normal 98-107 [facility] CO2 molar conc 22 mmol/L Normal 22-29 [facility] Creatinine mass conc 0.7 mg/dL Normal 0.5-1.0 [facility] GFR/1.73 sq M predicted among blacks MDRD vol rate/area (S/P/Bld) mL/min/{1.73_m2} Normal [facility] GFR/1.73 sq M predicted among non-blacks MDRD vol rate/area (S/P/Bld) mL/min/{1.73_m2} Normal >=60 [facility] Comment on above: Result Comment: Data Acquisition Technician katherine Kidney Disease: less than 60 ml/min/1.73 sq.m. Kidney Failure: less than 15 ml/min/1.73 sq.m. Results valid for patients 18 years and older. Glucose mass conc 84 mg/dL Normal 74-109 [facility] Potassium molar conc 3.8 mmol/L Normal 3.5-5.0 [facility] Protein mass conc 8.2 g/dL Normal 6.4-8.3 [facility] Sodium molar conc 137 mmol/L Normal 132-146 [facility] Urea nitrogen mass conc 6 mg/dL Normal 6-20 [facility] Lactic Acidon 05-05-2018 Lactate molar conc 1.3 mmol/L Normal 0.5-2.2 [facility] US PELVIS COMPLETEon 018 US PELVIS COMPLETE Patient : 1985 Age: 33 years Gender: Female Order Date: 05/05/2018 6:15 AM EXAM: US PELVIS COMPLETE NUMBER OF IMAGES: 57 INDICATION: Flank Pain about Pain History of Ovarian Cyst Rule Out Torsion COMPARISON: CT scans of the abdomen and pelvis dated 04/30/2018 and 05/08/2017. Pelvic ultrasounds dated 04/30/2018 and 01/16/2018. Technique: The pelvis was examined via transabdominal approach using link scale imaging, color doppler flow analysis, and spectral doppler interrogation. Findings: The uterus measures 6.6 x 2.8 x 5.4 cm and is normal in echotexture without focal lesions. The endometrial stripe is 6 mm thick. No fluid is seen in the endometrial cavity. An 8.6 x 5.9 x 9.0 cm anechoic cyst is seen within the right adnexa, similar to the prior examination. The left ovary measures 3.1 x 2.1 x 3.1 cm and is unremarkable in appearance. Normal vascularity was obtained in the ovaries. No free fluid is noted in the pelvis. IMPRESSION: Essentially stable 8-9 cm anechoic right adnexal cyst. APPLICATION SYSTEMS ARCHITECT and/or surgical evaluation should be considered. Interpreted by: Pedro Shaikh MD Signed by: Pedro Shaikh MD 05/05/18 Final result Normal [facility] Urinalysis, reflex to micros copicon 05-05-2018 Bilirubin Ql (U) LARGE Abnormal Negative [facility] Clarity Nom (U) CLOUDY Abnormal Clear [facility] Color Nom (U) RED Abnormal Straw/Yellow [facility] Glucose Ql (U) 100 mg/dL Abnormal Negative [facility] Hemoglobin Ql (U) LARGE Abnormal Negative [facility] Ketones Ql (U) TRACE Abnormal Negative [facility] Leukocyte esterase Test strip Ql (U) MODERATE Abnormal Negative [facility] Nitrite Ql (U) Positive Abnormal Negative [facility] pH (U) 7.0 [pH] Normal 5.0-9.0 [facility] Protein Ql (U) >=300 Abnormal Negative [facility] Specific gravity Relative Density (U) 1.010 Normal 1.005-1.030 [facility] Urobilinogen Qn (U) 2.0 {Huey'U}/dL Abnormal < 2.0 [facility] Urine Microscopicon 08-10-20 18 Bacteria LM.HPF #/area (Urine sed) MODERATE Abnormal [facility] Epithelial cells LM Ql (Urine sed) MODERATE Normal [facility] RBC #/vol (U) PACKED Normal 0-2 [facility] WBC #/vol (U) 2-5 Normal 0-[address] [facility] [address] ABDOMEN PELVIS WO CONTRAS Ton 05-01-2018 CT ABDOMEN PELVIS WO CONTRAST Patient : 1985 Age: 33 years Gender: Female Order Date: 04/30/2018 9:00 PM TECHNIQUE/NUMBER OF IMAGES/COMPARISON/CL INICAL HISTORY: CT abdomen and pelvis Sequential axial images were obtained sagittal and coronal reconstructions Comparison with study of the abdomen was 2016 and reviewed the previous pelvic ultrasounds of January 16 and April 30 same day performed earlier. FINDINGS: There is a large the cyst in the right ovary. It measures 9.2 x 6.1 x 8.3 cm. This cyst has a small focus of wall calcification. There appears to be a second cyst also related with the right ovary of small size measuring 11 mm. There is no free fluid in the cul-de-sac. The left ovary appears unremarkable difficult to be separate from adjacent bowel segments. The uterus appear unremarkable. The bladder is not fully distended time the present study. There is no ascites in the upper abdomen. There are normal size and density for the liver and spleen and pancreas. Gallbladder has been surgically removed. Biliary tree and pancreatic ductal systems are not dilated. Patient had previous appendectomy. There are no acute inflammatory changes in the omental mesenteric fat planes, free intraperitoneal air, ascites or indication for bowel obstruction. Kidneys have preserved size and cortical thickness, there is no obstruction. Some increased density seen in renal pyramids in the lower pole of the left kidney which can be a manifestation of nephrocalcinosis to be correlated with the biochemical profile the patient. No obstructive uropathy seen. The aorta and IVC appear unremarkable. Lower lung bases demonstrate no significant findings. Visualized bone structures are of unremarkable appearance. No IMPRESSION: 1. Large cyst (9.2 x 6.1 x 8.3 cm) in the right ovary which has increased size since the most 2016 examination. Please see report and recommendations of the transvaginal ultrasound performed the same day April 30, 2018 prior to this examination. 2. Status post cholecystectomy, no dilatation of the pituitary and pancreatic ductal system. 3. Status post appendectomy. 4. No acute inflammatory changes in the omental mesenteric fat planes, free intraperitoneal air, ascites or indication for bowel obstruction. ALERT: THIS IS AN ABNORMAL REPORT Interpreted by: Erasmo Deleon MD Signed by: Erasmo Deleon MD 04/30/18 Final result Normal [facility] CBC With Platelet and Differ entialon 04-30-2018 Abs Imm Granulocytes 0.05 E9/L Normal [facility] Basophils #/vol (Bld) 0.04 E9/L Normal 0.00-0.[address] [facility] Basophils/100 WBC (Bld) 0.4 % Normal 0.0-2.0 [facility] Eosinophils #/vol (Bld) 0.05 E9/L Normal 0.05-0.50 [facility] Eosinophils/100 WBC (Bld) 0.4 % Normal 0.0-6.0 [facility] Erythrocyte distribution width Ratio (RBC) 11.9 fL Normal 11.5-15.0 [facility] Hematocrit Volume Fraction (Bld) 40.3 % Normal 34.0-48.0 [facility] Hemoglobin mass conc (Bld) 14.0 g/dL Normal 11.5-15.5 [facility] Imm Granulocytes 0.4 % Normal 0.0-5.0 [facility] Lymphocytes #/vol (Bld) 1.55 E9/L Normal 1.50-4.00 [facility] Lymphocytes/100 WBC (Bld) 13.8 % Low 20.0-42.0 [facility] MCH Entitic mass (RBC) 33.7 pg Normal 26.0-35.0 [facility] MCHC mass conc (RBC) 34.7 % High 32.0-34.5 [facility] MCV Entitic volume (RBC) 97.1 fL Normal 80.0-99.9 [facility] Monocytes #/vol (Bld) 0.94 E9/L Normal 0.10-0.[address] [facility] Monocytes/100 WBC (Bld) 8.4 % Normal 2.0-12.0 [facility] Neutrophils #/vol (Bld) 8.59 E9/L High 1.80-7.30 [facility] Neutrophils/100 WBC (Bld) 76.6 % Normal 43.0-80.0 [facility] Platelet mean volume Entitic volume (Bld) 10.1 fL Normal 7.0-12.0 [facility] Platelets #/vol (Bld) 209 E9/L Normal 130-[address] [facility] RBC #/vol (Bld) 4.15 E12/L Normal 3.50-5.50 [facility] WBC #/vol (Bld) 11.2 E9/L Normal 4.5-11.5 [facility] Comprehensive Metabolic Pane manfred 04-30-2018 Albumin mass conc 4.3 g/dL Normal 3.5-5.2 [facility] ALP enzyme act/vol 71 U/L Normal 35-104 [facility] ALT enzyme act/vol 22 U/L Normal 0-32 [facility] Anion gap molar conc 9 mmol/L Normal 7-16 [facility] AST enzyme act/vol 20 U/L Normal 0-31 [facility] Bilirubin mass conc 0.2 mg/dL Normal 0.0-1.2 [facility] Calcium mass conc 9.3 mg/dL Normal 8.6-10.2 [facility] Chloride molar conc 106 mmol/L Normal 98-107 [facility] CO2 molar conc 23 mmol/L Normal 22-29 [facility] Creatinine mass conc 0.7 mg/dL Normal 0.5-1.0 [facility] GFR/1.73 sq M predicted among blacks MDRD vol rate/area (S/P/Bld) mL/min/{1.73_m2} Normal [facility] GFR/1.73 sq M predicted among non-blacks MDRD vol rate/area (S/P/Bld) mL/min/{1.73_m2} Normal >=60 [facility] Comment on above: Result Comment: Data Acquisition Technician katherine Kidney Disease: less than 60 ml/min/1.73 sq.m. Kidney Failure: less than 15 ml/min/1.73 sq.m. Results valid for patients 18 years and older. Glucose mass conc 97 mg/dL Normal 74-109 [facility] Potassium molar conc 3.7 mmol/L Normal 3.5-5.0 [facility] Protein mass conc 7.7 g/dL Normal 6.4-8.3 [facility] Sodium molar conc 138 mmol/L Normal 132-146 [facility] Urea nitrogen mass conc 7 mg/dL Normal 6-20 [facility] Lactic Acidon 04-30-2018 Lactate molar conc 0.5 mmol/L Normal 0.5-2.2 [facility] Lipaseon 04-30-2018 Lipase enzyme act/vol 27 U/L Normal 13-[address] [facility] US NON OB TRANSVAGINALon NON OB TRANSVAGINAL Patient : 1985 Age: 33 years Gender: Female Order Date: 04/30/2018 6:45 PM TECHNIQUE/NUMBER OF IMAGES/COMPARISON/CL INICAL HISTORY: Transvaginal ultrasound 56 images Pelvic pain. Referred LMP is April 18. 33-year-old female patient. FINDINGS: Uterus measures 6.6 x 4.8 x 2.9 cm. Central endometrial stripe measures close to 8 mm and appears unremarkable. Right ovary measures 8.5 x 8.5 x 6.4 cm and has a large cyst of simple appearance of oval shaped the morphology measuring 8.1 x 8.5 x 6.4 cm. There are preserved flow in the right ovary. Left ovary measures 2.6 x 2.6 x 2.1 cm. And appears unremarkable and has preserved flow. There is no free fluid collection the cul-de-sac. IMPRESSION: 1. Fairly large cyst for the right ovary as observed on the examination of January 16, 2018. This cyst has increased size since CT of abdomen and pelvis of May 08, 2017. 2. Correlation with gynecological consultation on routine nonemergency basis recommended. The size of the cyst is overall stable since the previous study of December 2017, has increased size since the examination of April 2017. 3. Even though the cyst has sonographic benign pattern, final interpretation can require correlation with the histopathologic. Interpreted by: Erasmo Deleon MD Signed by: Erasmo Deleon MD 04/30/18 Final result Normal [facility] Urinalysis, reflex to micros copicon 04-30-2018 Bilirubin Ql (U) Negative Normal Negative [facility] Clarity Nom (U) CLOUDY Abnormal Clear [facility] Color Nom (U) RED Abnormal Straw/Yellow [facility] Glucose Ql (U) Negative Normal Negative [facility] Hemoglobin Ql (U) LARGE Abnormal Negative [facility] Ketones Ql (U) TRACE Abnormal Negative [facility] Leukocyte esterase Test strip Ql (U) SMALL Abnormal Negative [facility] Nitrite Ql (U) Positive Abnormal Negative [facility] pH (U) 6.5 [pH] Normal 5.0-9.0 [facility] Protein Ql (U) >=300 Abnormal Negative [facility] Specific gravity Relative Density (U) 1.020 Normal 1.005-1.030 [facility] Urobilinogen Qn (U) 4.0 {Huey'U}/dL Abnormal < 2.0 [facility] Urine Microscopicon 04-30-20 18 Bacteria LM.HPF #/area (Urine sed) MANY Abnormal [facility] Epithelial cells LM Ql (Urine sed) FEW Normal [facility] RBC #/vol (U) PACKED Normal 0-2 [facility] WBC #/vol (U) 5-10 Normal 0-5 [facility] Chlamydia GC DNA Amplificati onon 01-17-2018 Chlamydia GC DNA Amplification Chlamydia trachomatis DNA Amplification-: Negative for C. Trachomatis rRNA Results should be interpreted in conjunction with other laboratory and clinical data available to the clinician. Neisseria gonorrhoeae DNA Amplification-: Negative for N. gonorrhoeae rRNA Results should be interpreted in conjunction with other laboratory and clinical data available to the clinician. Normal [facility] US NON OB TRANSVAGINALon US NON OB TRANSVAGINAL Patient : 1985 Age: 32 years Gender: Female Order Date: 01/16/2018 8:30 PM EXAM: US NON OB TRANSVAGINAL INDICATION: PAIN, PELVIS COMPARISON: None NUMBER OF IMAGES: 66 FINDINGS: Real-time ultrasound of the pelvis was performed using transvaginal technique. Doppler imaging was utilized. The uterus is anteverted and measures 7.1 x 3.8 x 4.5 cm. It has a homogeneous echotexture. The endometrial echo complex measures approximately 8 mm in thickness and appears trilaminar. In the right ovary there is a large cyst measuring 9.1 x 5.6 x 7.7 cm. There is some surrounding ovarian tissue visible. There is normal blood flow to the ovary. The left ovary measures approximately 3.4 x 3.5 x 2.7 cm and contains small follicles. There is normal blood flow to the ovary. No free fluid is seen. CONCLUSION: 1. Large right ovarian cyst measuring 9.1 x 5.6 x 7.7 cm. Follow-up is recommended. There is no evidence of associated ovarian torsion. 2. Normal-appearing uterus and left ovary. ALERT: THIS IS AN ABNORMAL REPORT Interpreted by: Josie Traylor MD Signed by: Josie Traylor MD 01/16/18 Final result Normal [facility] Wet Prep-Medical Purposes On mancia 01-17-2018 Wet Prep Clue Cells None Seen Normal [facility] Wet Prep Source VAGINAL Normal [facility] Wet Prep Trichomonas None Seen Normal [facility] Wet Prep Yeast None Seen Normal [facility] CBC With Platelet and Differ entialon 01-16-2018 Abs Imm Granulocytes 0.04 E9/L Normal [facility] Basophils #/vol (Bld) 0.03 E9/L Normal 0.00-0.[address] [facility] Basophils/100 WBC (Bld) 0.3 % Normal 0.0-2.0 [facility] Eosinophils #/vol (Bld) 0.04 E9/L Low 0.05-0.50 [facility] Eosinophils/100 WBC (Bld) 0.4 % Normal 0.0-6.0 [facility] Erythrocyte distribution width Ratio (RBC) 12.5 fL Normal 11.5-15.0 [facility] Hematocrit Volume Fraction (Bld) 41.7 % Normal 34.0-48.0 [facility] Hemoglobin mass conc (Bld) 14.7 g/dL Normal 11.5-15.5 [facility] Imm Granulocytes 0.4 % Normal 0.0-5.0 [facility] Lymphocytes #/vol (Bld) 2.63 E9/L Normal 1.50-4.00 [facility] Lymphocytes/100 WBC (Bld) 25.6 % Normal 20.0-42.0 [facility] MCH Entitic mass (RBC) 34.8 pg Normal 26.0-35.0 [facility] MCHC mass conc (RBC) 35.3 % High 32.0-34.5 [facility] MCV Entitic volume (RBC) 98.6 fL Normal 80.0-99.9 [facility] Monocytes #/vol (Bld) 0.90 E9/L Normal 0.10-0.[address] [facility] Monocytes/100 WBC (Bld) 8.8 % Normal 2.0-12.0 [facility] Neutrophils #/vol (Bld) 6.63 E9/L Normal 1.80-7.30 [facility] Neutrophils/100 WBC (Bld) 64.5 % Normal 43.0-80.0 [facility] Platelet mean volume Entitic volume (Bld) 10.3 fL Normal 7.0-12.0 [facility] Platelets #/vol (Bld) 266 E9/L Normal 130-[address] [facility] RBC #/vol (Bld) 4.23 E12/L Normal 3.50-5.50 [facility] WBC #/vol (Bld) 10.3 E9/L Normal 4.5-11.5 [facility] Comprehensive Metabolic Pane manfred 01-16-2018 Albumin mass conc 4.7 g/dL Normal 3.5-5.2 [facility] ALP enzyme act/vol 61 U/L Normal 35-104 [facility] ALT enzyme act/vol 18 U/L Normal 0-32 [facility] Anion gap molar conc 17 mmol/L High 7-16 [facility] AST enzyme act/vol 19 U/L Normal 0-31 [facility] Bilirubin mass conc 0.5 mg/dL Normal 0.0-1.2 [facility] Calcium mass conc 9.5 mg/dL Normal 8.6-10.2 [facility] Chloride molar conc 99 mmol/L Normal 98-107 [facility] CO2 molar conc 26 mmol/L Normal 22-29 [facility] Creatinine mass conc 0.6 mg/dL Normal 0.5-1.0 [facility] GFR/1.73 sq M predicted among blacks MDRD vol rate/area (S/P/Bld) mL/min/{1.73_m2} Normal [facility] GFR/1.73 sq M predicted among non-blacks MDRD vol rate/area (S/P/Bld) mL/min/{1.73_m2} Normal >=60 [facility] Comment on above: Result Comment: Data Acquisition Technician katherine Kidney Disease: less than 60 ml/min/1.73 sq.m. Kidney Failure: less than 15 ml/min/1.73 sq.m. Results valid for patients 18 years and older. Glucose mass conc 94 mg/dL Normal 74-109 [facility] Potassium molar conc 3.7 mmol/L Normal 3.5-5.0 [facility] Protein mass conc 7.6 g/dL Normal 6.4-8.3 [facility] Sodium molar conc 142 mmol/L Normal 132-146 [facility] Urea nitrogen mass conc 7 mg/dL Normal 6-20 [facility] Lactic Acidon 01-16-2018 Lactate molar conc 1.0 mmol/L Normal 0.5-2.2 [facility] Lipaseon 01-16-2018 Lipase enzyme act/vol 21 U/L Normal 13-60 [facility] Urinalysis, reflex to micros copicon 01-16-2018 Bilirubin Ql (U) Negative Normal Negative [facility] Clarity Nom (U) Clear Normal Clear [facility] Color Nom (U) Yellow Normal Straw/Yellow [facility] Glucose Ql (U) Negative Normal Negative [facility] Hemoglobin Ql (U) Negative Normal Negative [facility] Ketones Ql (U) Negative Normal Negative [facility] Leukocyte esterase Test strip Ql (U) Negative Normal Negative [facility] Nitrite Ql (U) Negative Normal Negative [facility] pH (U) 6.0 [pH] Normal 5.0-9.0 [facility] Protein Ql (U) Negative Normal Negative [facility] Specific gravity Relative Density (U) 1.025 Normal 1.005-1.030 [facility] Urobilinogen Qn (U) 0.2 {Huey'U}/dL Normal < 2.0 [facility] Vital Signs Date Time Vital Sign Value Performing Clinician Samir lozano 12-15-2024 02:08-0400 Body temperature 98 [degF] No Primary Care Physician [facility] 12-15-2024 02:08-0400 Diastolic blood pressure 78 mm[Hg] No Primary Care Physician [facility] 12-15-2024 02:08-0400 Heart rate 73 /min No Primary Care Physician [facility] 12-15-2024 02:08-0400 Respiratory rate 18 /min No Primary Care Physician [facility] 12-15-2024 02:08-0400 SaO2% (BldA) [Mass fraction] 99 % No Primary Care Physician [facility] 12-15-2024 02:08-0400 Systolic blood pressure 117 mm[Hg] No Primary Care Physician [facility] 12-15-2024 01:19-0400 Body height 162.56 cm No Primary Care Physician [facility] 12-15-2024 01:19-0400 Body mass index (BMI) [Ratio] 28.7 kg/m2 No Primary Care Physician [facility] 12-15-2024 01:19-0400 Body weight 75.9 kg No Primary Care Physician [facility] 12-04-2023 01:14-0500 Body temperature 96.1 [degF] [facility] 12-04-2023 01:14-0500 Diastolic blood pressure 64 mm[Hg] [facility] 12-04-2023 01:14-0500 Heart rate 82 /min [facility] 12-04-2023 01:14-0500 Respiratory rate 24 /min [facility] 12-04-2023 01:14-0500 SaO2% (BldA) [Mass fraction] 98 % [facility] 12-04-2023 01:14-0500 Systolic blood pressure 102 mm[Hg] [facility] 12-04-2023 01:11-0500 Body height 162.56 cm [facility] 12-04-2023 01:11-0500 Body mass index (BMI) [Ratio] 26.5 kg/m2 [facility] 12-04-2023 01:11-0500 Body weight 70.2 kg [facility] 08-13-2023 19:25-0500 Diastolic blood pressure 81 mm[Hg] [facility] 08-13-2023 19:25-0500 Heart rate 81 /min [facility] 08-13-2023 19:25-0500 Respiratory rate 16 /min [facility] 08-13-2023 19:25-0500 SaO2% (BldA) [Mass fraction] 98 % [facility] 08-13-2023 19:25-0500 Systolic blood pressure 101 mm[Hg] [facility] 08-13-2023 17:39-0500 Body height 162.56 cm [facility] 08-13-2023 17:39-0500 Body mass index (BMI) [Ratio] 27.3 kg/m2 [facility] 08-13-2023 17:39-0500 Body temperature 97.6 [degF] [facility] 08-13-2023 17:39-0500 Body weight 72.2 kg [facility] 08-07-2023 13:43-0500 Diastolic blood pressure 55 mm[Hg] [facility] 08-07-2023 13:43-0500 Heart rate 81 /min [facility] 08-07-2023 13:43-0500 Respiratory rate 20 /min [facility] 08-07-2023 13:43-0500 SaO2% (BldA) [Mass fraction] 99 % [facility] 08-07-2023 13:43-0500 Systolic blood pressure 90 mm[Hg] [facility] 08-07-2023 11:06-0500 Body height 162.56 cm [facility] 08-07-2023 11:06-0500 Body mass index (BMI) [Ratio] 25.4 kg/m2 [facility] 08-07-2023 11:06-0500 Body temperature 98.2 [degF] [facility] 08-07-2023 11:06-0500 Body weight 67.13 kg [facility] 07-28-2023 00:40-0400 Diastolic blood pressure 65 mm[Hg] [facility] 07-28-2023 00:40-0400 Heart rate 78 /min [facility] 07-28-2023 00:40-0400 Respiratory rate 18 /min [facility] 07-28-2023 00:40-0400 Systolic blood pressure 102 mm[Hg] [facility] 07-27-2023 21:40-0400 Body height 162.56 cm [facility] 07-27-2023 21:40-0400 Body mass index (BMI) [Ratio] 24.9 kg/m2 [facility] 07-27-2023 21:40-0400 Body temperature 98.3 [degF] [facility] 07-27-2023 21:40-0400 Body weight 65.77 kg [facility] 07-27-2023 21:40-0400 SaO2% (BldA) [Mass fraction] 100 % [facility] 06-26-2023 07:23-0400 Diastolic blood pressure 78 mm[Hg] [facility] 06-26-2023 07:23-0400 Heart rate 87 /min [facility] 06-26-2023 07:23-0400 Respiratory rate 16 /min [facility] 06-26-2023 07:23-0400 SaO2% (BldA) [Mass fraction] 99 % [facility] 06-26-2023 07:23-0400 Systolic blood pressure 114 mm[Hg] [facility] 06-26-2023 02:31-0400 Body height 162.56 cm [facility] 06-26-2023 02:31-0400 Body mass index (BMI) [Ratio] 25.9 kg/m2 [facility] 06-26-2023 02:31-0400 Body temperature 97.8 [degF] [facility] 06-26-2023 02:31-0400 Body weight 68.6 kg [facility] 06-21-2023 01:43-0400 Diastolic blood pressure 75 mm[Hg] [facility] 06-21-2023 01:43-0400 Heart rate 77 /min [facility] 06-21-2023 01:43-0400 Respiratory rate 14 /min [facility] 06-21-2023 01:43-0400 SaO2% (BldA) [Mass fraction] 100 % [facility] 06-21-2023 01:43-0400 Systolic blood pressure 98 mm[Hg] [facility] 06-20-2023 20:37-0400 Body height 162.56 cm [facility] 06-20-2023 20:37-0400 Body mass index (BMI) [Ratio] 25.4 kg/m2 [facility] 06-20-2023 20:37-0400 Body temperature 97.2 [degF] [facility] 06-20-2023 20:37-0400 Body weight 67.13 kg [facility] 10-19-2022 05:40-0500 Heart rate 81 /min [facility] 10-19-2022 05:40-0500 Respiratory rate 14 /min [facility] 10-19-2022 05:40-0500 SaO2% (BldA) [Mass fraction] 96 % [facility] 10-19-2022 02:33-0500 Body height 162.56 cm [facility] 10-19-2022 02:33-0500 Body mass index (BMI) [Ratio] 24.3 kg/m2 [facility] 10-19-2022 02:33-0500 Body temperature 96.1 [degF] [facility] 10-19-2022 02:33-0500 Body weight 64.1 kg [facility] 10-19-2022 02:33-0500 Diastolic blood pressure 77 mm[Hg] [facility] 10-19-2022 02:33-0500 Systolic blood pressure 113 mm[Hg] [facility] Encounters Encounter Date Encounter Type Care Provider Facility Start: 12-15-2024 End: 12-15-2024 Emergency department patient visit No Primary Care Physician -Emergency Department Work Phone: Start: 02-13-2024 End: 02-13-2024 ambulatory [facility] Start: 12-04-2023 End: 12-04-2023 Emergency department patient visit [facility]-Emergency Department Work Phone: Start: 11-29-2023 End: 11-29-2023 Emergency department patient visit KATY AMOS [facility] Start: 08-21-2023 Refill Jacqueline Arias APRN.CNP Work Phone: Gynecology Comment on above: Refill Request Start: 08-13-2023 End: 08-13-2023 Emergency department patient visit [facility]-Emergency Department Work Phone: Start: 08-10-2023 End: 08-10-2023 ambulatory VANESSA ICLI Facility:[facility] Start: 08-10-2023 End: 08-10-2023 [facility] Jacqueline Arias APRN.CNP Work Phone: Gynecology Comment on above: History of right ariel pingo-oophorectomy 05/2018 for adnexal mass (benign, endometriosis) (Primary Dx); Endometriosis determined by laparoscopy; Cyst of left ovary; Pelvic pain in female; Tobacco use disorder Start: 08-07-2023 End: 08-07-2023 Emergency department patient visit [facility]-Emergency Department Work Phone: Start: 07-30-2023 End: 07-30-2023 ambulatory VANESSA ICLI Facility:[facility] Start: 07-30-2023 End: 07-30-2023 ambulatory Chadwick Re[facility]juvenal [facility] Work Phone: Telemedicine Comment on above: Treatment not availa ble (Primary Dx) Start: 07-27-2023 End: 07-28-2023 Emergency department patient visit [facility]-Emergency Department Work Phone: Start: 06-26-2023 End: 06-26-2023 Emergency department patient visit [facility]Emergency Department Work Phone: Start: 06-20-2023 End: 06-21-2023 Emergency department patient visit [facility]Emergency Department Work Phone: Start: 02-22-2023 End: 02-22-2023 Emergency department patient visit CINDI SILVA [facility] Start: 01-06-2023 Emergency department patient visit KAT MONTEIRO [facility] Start: 10-19-2022 End: 10-19-2022 Emergency department patient visit [facility]Emergency Department Start: 10-11-2018 End: 10-11-2018 Emergency department patient visit VANESSA ICLI [facility] Start: 10-04-2018 End: 10-04-2018 [facility] Start: 06-07-2018 End: 06-07-2018 Emergency department patient visit EDWIN TABARES [facility] Start: 05-22-2018 End: 05-22-2018 Emergency department patient visit VANESSA ICLI [facility] Start: 05-19-2018 End: 05-19-2018 Emergency department patient visit DAT HAYNES [facility] Start: 05-05-2018 End: 05-05-2018 Emergency department patient visit MIRNA ESCOTO [facility] Start: 04-30-2018 End: 05-01-2018 Emergency department patient visit GEOFF GALLOWAY [facility] Start: 01-16-2018 End: 01-17-2018 Emergency department patient visit FAUSTO PERALTA [facility] Procedures Date Procedure Procedure Detail Performing Clinician Start: 11-29-2023 Urinalysis CINDI BEARD Comment on above: Result Comment: CORRECTED REPORT URINALYSIS Performed By: #### [id number] #### [facility],[address] [place] [address] Start: 08-07-2023 Plain chest X-ray Start: 08-07-2023 Transvaginal echography Start: 07-27-2023 Computed tomography of abdomen and pelvis with intravenous contrast Start: 07-27-2023 Measurement of occul t blood in stool specimen using immunoassay Start: 06-26-2023 Bacterial nucleic acid assay Start: 06-26-2023 Chlamydia trachomatis (PCR) Start: 06-26-2023 Plain chest X-ray Start: 06-21-2023 Computed tomography of abdomen and pelvis with intravenous contrast Start: 06-20-2023 Urine culture Start: 10-11-2018 Ct abdomen & pelvis w/contrast material FAUSTO PERALTA Start: 10-11-2018 Urnls dip stick/tabl et rgnt auto w/o microscopy FAUSTO PERALTA Start: 10-11-2018 Gonadotropin chorion ic qualitative FAUSTO PERALTA Start: 10-11-2018 POC UR-QUAL Y ABILIO PERALTA Start: 10-11-2018 Assay of lactate FAUSTO PERALTA Start: 10-11-2018 Assay of lipase FAUSTO BARAKAT Start: 10-11-2018 Blood count complete auto&auto difrntl wbc FAUSTO PERALTA Start: 10-11-2018 Comprehensive metabolic panel FAUSTO PERALTA Start: 10-11-2018 SALINE LOCK IV FAUSTO SANCHEZ Start: 06-07-2018 FLEET ENEMA DAT Simpson Start: 06-07-2018 Ct abdomen & pelvis w/contrast material DAT HAYNES Start: 06-07-2018 Assay of lipase DAT CAMPOS Start: 06-07-2018 Blood count complete auto&auto difrntl wbc DAT HAYNES Start: 06-07-2018 Comprehensive metabolic panel DAT HAYNES Start: 06-07-2018 LACTIC ACID, PLASMA FAWN HAYNES Start: 06-07-2018 Culture bacterial qu anttative colony count urine DAT HAYNES Start: 06-07-2018 POC UR-QUAL C DIANNE HAYNES Start: 06-07-2018 Urnls dip stick/tabl et reagent auto microscopy DAT HAYNES Start: 06-07-2018 INSERT PERIPHERAL IV CH MARLENY HAYNES Start: 05-22-2018 PULSE OXIMETRY DAT HERNANDEZ Start: 05-22-2018 SALINE LOCK IV DAT HERNANDEZ Start: 05-22-2018 TELEMETRY MONITORING GABRIELLA HAYNES Start: 05-19-2018 Us transvaginal DAT CAMPOS Start: 05-19-2018 Dup-scan artl trav abdl/pel/scrot&/rpr orgn lmt DAT HAYNES Start: 05-19-2018 POC UR-QUAL C DIANNE HAYNES Start: 05-19-2018 Microscopic urinalysis DAT HAYNES Start: 05-19-2018 Urnls dip stick/tabl et rgnt auto w/o microscopy DAT HAYNES Start: 05-19-2018 Basic metabolic pane l calcium total DAT HAYNES Start: 05-19-2018 Blood count complete auto&auto difrntl wbc DAT HAYNES Start: 05-19-2018 LACTATE, SEPSIS DAT CAMPOS Start: 05-05-2018 Us pelvic nonobstetr ic real-time image complete FAUSTO PERALTA Start: 05-05-2018 Comprehensive metabolic panel FAUSTO PERALTA Start: 05-05-2018 LACTIC ACID, PLASMA CHRISTOS PERALTA Start: 05-05-2018 POC UR-QUAL Y ABILIO PERALTA Start: 05-05-2018 Microscopic urinalysis FAUSTO PERALTA Start: 05-05-2018 Urnls dip stick/tabl et rgnt auto w/o microscopy FAUSTO PERALTA Start: 05-05-2018 Blood count complete automated FAUSTO PERALTA Start: 05-01-2018 Ct abdomen & pelvis w/o contrast material FAUSTO PERALTA Start: 04-30-2018 EKG 12-LEAD FAUSTO FIGUEROA Start: 04-30-2018 Us transvaginal FAUSTO BARAKAT Start: 04-30-2018 POC UR-QUAL Y STERLINGBienvenido VALENCIAMICHAELHENRY Start: 04-30-2018 Assay of lipase FAUSTO BARAKAT Start: 04-30-2018 Blood count complete auto&auto difrntl wbc FAUSTO PERALTA Start: 04-30-2018 Comprehensive metabolic panel FAUSTO PERALTA Start: 04-30-2018 LACTIC ACID, PLASMA CHRISTOS PERALTA Start: 04-30-2018 Microscopic urinalysis FAUSTO PERALTA Start: 04-30-2018 Urnls dip stick/tabl et rgnt auto w/o microscopy FAUSTO PERALTA Start: 01-17-2018 C. TRACHOMATIS / N. GONORRHOEAE, DNA FAUSTO PERALTA Start: 01-17-2018 WET PREP, GENITAL FAUSTO PERALTA Start: 01-17-2018 Us transvaginal FAUSTO BARAKAT Start: 01-16-2018 VAGINAL EXAM FAUSTO FIGUEROA Start: 01-16-2018 CBC WITH AUTO DIFFERENTIAL FAUSTO PERALTA Start: 01-16-2018 Comprehensive metabo lic 2000 panel FAUSTO PERALTA Start: 01-16-2018 LACTIC ACID, PLASMA CHRISTOS PERALTA Start: 01-16-2018 LIPASE FAUSTO FIGUEROA Start: 01-16-2018 Urinalysis FAUSTO FIGUEROA Start: 01-16-2018 POC UR-QUAL Y STERLINGBienvenido PERALTA Plan of Treatment Date Care Activity Detail Author Start: 12-15-2024 [facility] Start: 12-04-2023 Urine test [facility] Start: 12-04-2023 [facility] Start: 12-04-2023 Blood chemistry [facility] Start: 12-04-2023 Triacylglycerol lipa se measurement [facility] Start: 08-10-2023 End: 08-10-2024 PELVIC US WHI PELVIC US [facility] Anc Imaging Routine History of right salpingo-oophorectomy 05/2018 for adnexal mass (benign, endometriosis) Cyst of left ovary Endometriosis determined by laparoscopy Pelvic pain in female Expected: 08/10/2023, Expires: 08/10/2024 [facility] Work Phone: Comment on above: Expected: 08/10/2023 , Expires: 08/10/2024 Start: 08-07-2023 [facility] Start: 07-28-2023 [facility] Start: 06-26-2023 Chlamydia trachomati s (PCR) Chlamydia trachomatis (PCR) [facility] Start: 06-26-2023 Neisseria gonorrhoea e (PCR) Neisseria gonorrhoeae (PCR) [facility] Start: 06-26-2023 [facility] Start: 06-21-2023 [facility] Start: 06-20-2023 Bacteria identified in Urine by Culture Urine Culture [facility] Start: 05-27-2023 Influenza vaccination Influenza Vacc ine (#1) [facility] Start: 10-19-2022 [facility] Start: 09-26-2022 Depression Assessment Depression Ass essment [facility] Start: 02-15-2016 HPV Testing HPV Testing [facility] Start: 09-04-2014 Pneumococcal vaccination Pneum ococcal Vaccine (2 - PCV) [facility] Start: 2007 Pap Testing Pap Testing [facility] Start: 2005 Urine microalbumin profile DTaP,Tdap,Td Vaccine (1 - Tdap) [facility] Start: 02-15-2004 Hepatitis C Screening Hepatitis C Sc reening [facility] Start: 02-15-2004 HIV Screening HIV Screening [facility] Start: 1986 Covid-19 Vaccine (#1) Covid-19 Vacci ne (#1) [facility] Start: 1986 Hepatitis B Vaccine (1 of 3 - 3-dose series) Hepatitis B Vaccine (1 of 3 - 3-dose series) [facility] Anion gap measurement [facility] Bacteria identified in Urine by Culture Urine Culture [facility] Bilirubin measuremen t, urine [facility] BUN/Creatinine ratio [facility] Calcium [Mass/volume ] in Serum or Plasma [facility] Carbon dioxide, tota l [Moles/volume] in Serum or Plasma [facility] Chlamydia trachomatis [facility] Chloride [Moles/volu me] in Serum or Plasma [facility] Creatinine [Moles/vo lume] in Serum or Plasma [facility] Erythrocyte mean corpuscular volume determination [facility] Glucose [Mass/volume ] in Serum or Plasma [facility] Hematocrit [Volume Fraction] of Blood [facility] Hemoglobin [Mass/vol ume] in Blood [facility] Hemoglobin [Presence ] in Urine [facility] Leukocytes [#/volume ] in Blood [facility] Mean corpuscular hemoglobin concentration determination [facility] Mean corpuscular hemoglobin determination [facility] Measurement of keton es in urine using dipstick [facility] Measurement of renal function [facility] Microscopic urinalysis [facility] Neisseria gonorrhoea e DNA [Presence] in Genital specimen by GABBY with probe detection [facility] Neutrophil count [facility] Neutrophil percent differential count [facility] Patient Education [facility] Work Phone: Patient referral [facility] Work Phone: pH of Urine [facility] Platelets [#/volume] in Blood [facility] Potassium [Moles/vol ume] in Serum or Plasma [facility] Red blood cell count [facility] Red cell distributio n width determination [facility] Sodium [Moles/volume ] in Serum or Plasma [facility] Specific gravity of Urine [facility] Urea nitrogen [Mass/volume] in Serum or Plasma [facility] Urinalysis, blood, qualitative [facility] Urine dipstick for glucose [facility] Urine dipstick for leukocyte esterase [facility] Urine dipstick for nitrite [facility] Urine dipstick for protein [facility] Urine examination [facility] Urine microscopy: epithelial cells [facility] Urine Microscopy: wh ite cells [facility] Urobilinogen [Presen ce] in Urine [facility] Immunizations Immunization Date Immunization Notes Care Provider Fa cility 06-14-2018 influenza, injectabl e, quadrivalent, preservative free Chadwick Tariq [facility] Work Phone: [facility] Work Phone: 06-14-2018 influenza virus vaccine, unspecified formulation Chadwick Tariq [facility] Work Phone: [facility] Payers Date Payer Category Payer Self-pay 2023 Medicaid [facility] MEDICAID [id number] 2023-Present [phone] [address] [place] [address] Medicaid [id number] 2009 Medicaid [id number] 2009 Unknown [id number] 1986 Unknown [id number] 1986 Unknown [id number] 1986 Unknown [id number] 1986 Unknown [id number] 1986 Unknown [id number] 1986 Unknown [id number] 1986 Unknown [id number] Unknown [employer] [id number] Unknown [employer] [id number] Unknown [id number] Social History Date Type Detail Facility Start: 10-19-2022 End: 12-04-2023 Tobacco smoking status IAIS Unknown if ever smoked [facility] Start: 1985 Sex Assigned At Female [facility] Tobacco smoking status NHIS Smokes tobacco daily [facility] Work Phone: History of tobacco use Cigarette Smoker [facility] Start: 06-11-2018 End: 08-10-2023 Alcohol intake Current non-drinker of alcohol (finding) [facility] Start: 04-24-2019 End: 08-10-2023 History of Social function [facility] Start: 04-24-2019 End: 08-10-2023 Tobacco use panel [facility] Start: 1985 Sex Assigned At Not on file [facility] National Score (1-100), lower number is lower risk 76 [facility] Start: 12-15-2024 Tobacco smoking status NHIS Current Heavy tobacco smoker [facility] Start: 12-15-2024 Sex Female (finding) [facility] NEGATED: Highlighted row [facility] Mental Status Date Assessment Result Facility 08-07-2023 Cognitive function Awake;Alert;A ppropriate;Fol lows Commands [facility] Work Phone: Clinical Notes 05-27-2018 to 08-10-2023 Jacqueline Arias APRN.CNP - 08/10/2023 2:30 PM Chadwick Balderas PA-C - 07/30/2023 7:41 AM EDT Note Date & Type Note Facility 08-10-2023 Note HNO ID: [id number] Author: Jacqueline Arias APRN.CNP Service: ? Author Type: Nurse Practitioner Type: Progress Notes Filed: 08/10/2023 2:55 PM Note Text: [facility] Ben[facility] Gy[facility] PATIENT NAME: Delia Merchant DATE: 08/10/2023 Patient Name and verified: Yes Patient Location: [place] This Virtual Visit was completed using My Chart Zoom platform. I have communicated my name and active licensure. The patient's identity and physical location were verified at the time of this visit. Either the patient or their legal loan representative has been informed of the risks and [...] cysts. Surgery in 06/10/[address] Soriano (Partner Onc): PREOPERATIVE DIAGNOSIS: Right adnexal mass. POSTOPERATIVE DIAGNOSIS: Benign right adnexal mass. SURGEON: Cristhian Soriano M.D. PERSONAL CARE HOME ADMINISTRATOR 1: Zoe Cast M.D. PERSONAL CARE HOME ADMINISTRATOR 2: Chaitanya Grady S.A. SURGERY/PROCEDURE: Laparoscopic RSO. [...] follicles. - Benign fallopian tube with hydrosalpinx. LOUISE/marvin 06/14/2018 Had ED Visit at OSH 07/27/2023 - [facility] Imaging Services [address] [place] [address] Transvaginal Non- MR#: [id number] Acct: [id number] Name: DELIA MERCHANT Rep #: [id number] : 1985 F 38 From: Nguyễn Rg MD PCP: Care Physician,No Primary Status: [facility] ER Study:Transvaginal Non- Date of Exam: 08/07/23 Exam# [id number] Ordering Dr: Te Rai MD [id number] STUDY: ULTRASOUND TRANSVAGINAL CLINICAL: Female, 38 years old. left ovarian cysts - increased pain TECHNIQUE: Transvaginal COMPARISON: CT 07/27/2023 __ FINDINGS: Normal uterine size measuring 7.9 x [...] in the pelvis. Polycystic ovary disease: No. __ US/Transvaginal Non- IMPRESSION: Normal transvaginal pelvic ultrasound. Electronically Signed: Pato Rg MD at 13:29 EST , CC: Dr. Tracie Rai MD; No Primary Care Physician ~ Reports she has a lot of mental issues Was in [facility] for 3 months. Is having trouble finding [...] OB History No obstetric history on file. Partner History LMP: Having periods Age at Menarche: Age at First : Age at Menop (more content not included)... [facility] 08-10-2023 History of Present illness Narrative Images from the original note were not included. [facility] Benign Gynecology [facility] PATIENT NAME: Delia Merchant DATE: 08/10/2023 Patient Name and verified: Yes Patient Location: [place] This Virtual Visit was completed using My Chart Zoom platform. I have communicated my name and active licensure. The patient's identity and physical location were verified at the time of this visit. Either the patient or their legal loan representative has been informed of the risks and [...] cysts. Surgery in 06/10/[address] Soriano (Partner Onc): PREOPERATIVE DIAGNOSIS: Right adnexal mass. POSTOPERATIVE DIAGNOSIS: Benign right adnexal mass. SURGEON: Cristhian Soriano M.D. PERSONAL CARE HOME ADMINISTRATOR 1: Zoe Cast M.D. PERSONAL CARE HOME ADMINISTRATOR 2: Chaitanya Grady S.A. SURGERY/PROCEDURE: Laparoscopic RSO. [...] Had ED Visit at OSH 07/27/2023 - [facility] Imaging Services [address] [place] [address] Transvaginal Non- MR#: [id number] Acct: [id number] Name: DELIA MERCHANT Rep #: [id number] : 1985 F 38 From: Nguyễn Rg MD PCP: Care Physician,No Primary Status: REG ER Study:Transvaginal Non- Date of Exam: 08/07/23 Exam# [id number] Ordering Dr: Te Rai MD [id number] STUDY: ULTRASOUND TRANSVAGINAL CLINICAL: Female, 38 years old. left ovarian cysts - increased pain TECHNIQUE: Transvaginal COMPARISON: CT 07/27/2023 __ FINDINGS: Normal uterine size measuring 7.9 x [...] in the pelvis. Polycystic ovary disease: No. __ US/Transvaginal Non- IMPRESSION: Normal transvaginal pelvic ultrasound. Electronically Signed: Pato Rg MD at 13:29 EST , CC: Dr. Tracie Rai MD; No Primary Care Physician ~ Reports she has a lot of mental issues Was in [facility] for 3 months. Is having trouble finding [...] OB History No obstetric history on file. Partner History LMP: Having periods Age at Menarche: Age at First : Age at Menopause: Partner History Comments: Sexual Activity: Yes; Male Contraception: [...] F17.200 1) Plan for repeat US at [facility]. Pt is s/p RSO, OSH US noted normal right ovary on recent US. No cysts noted on recent US, but patient reports cysts are coming and resolving day to day. 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 Pharmacy Information [place] [address] SIGNATURE: Jacqueline Arias APRN.BETTE PAGER: [phone] Medical Decision Making: Problems: Moderate: New problem with uncertain prognosis Data: Unique source(s) for external note(s) reviewed: 2 Unique test result(s) reviewed: 1 Unique test(s) ordered: 1 Risk: Moderate: Drug management Medical Decision Making Level: 4 - Moderate documented in this encounter [facility] 07-30-2023 Note HNO ID: [id number] Author: Chadwick Potter PA-C Service: ? Author Type: Physician Meat Soaker Type: Progress Notes Filed: 07/30/2023 7:42 AM Note Text: This is an Express Care eVisit note for Delia Merchant eVisit/Questionnaire reviewed The chief complaint for the visit - Patient presents with: Back Pain Recommendations/Treatment plan - See My Chart Message to patient Chadwick Potter PA-C [facility] 07-30-2023 History of Present illness Narrative This is an Express Care eVisit note for Delia Merchant eVisit/Questionnaire reviewed The chief complaint for the visit - Patient presents with: Back Pain Recommendations/Treatment plan - See My Chart Message to patient Chadwick Potter PA-C documented in this encounter [facility] 06-26-2023 Discharge summary Note Date/Time June 26, 2023 3:59am [facility] Medical Records Department [address] [place] [address] Emergency Department Summary 06/26/23 MR#: [id number] Acct: [id number] Name: DELIA MERCHANT Rep #:[id number] : 1985 38 From: Ronal Bernard MD PCP: Care Physician,No Primary Status :REG ER Location: ED HPI History of Present Illness Chief Complaint: Abd Pain Detail of Chief Complaint: Lower quadrant/adnexal pain Informant: patient Onset/Context/Timing Onset: Today Context: Sudden Onset Timing: Continuous Quality: Pain Location: Left adnexal region Current Severity: Severe Maximum Severity: Severe Worsened by: Nothing Relieved by: Nothing Associated Symptoms Associated Symptoms: Nausea Narrative Narrative: Patient is a 38-year-old woman who was seen on June 21 for abdominal pain. Her work-up revealed a 3.0 cm left ovarian cyst. This was a simple cyst. She presents now because of increased pain. She states the pain never went away. She does report nausea without vomiting or diarrhea. She denies dysuria, frequency, urgency or hematuria. UA revealed pyuria and bacteriuria. Culture revealed a mixed specimen most likely contaminant. Since she has no symptoms. She denies flank pain. He has been 3 times. She has had no complications with those 3 pregnancies. There is no history of trauma. She denies fever or chills. She denies night sweats. Prior similar symptoms: Yes Recent Illness/Hospitalization: Yes PFSH PFSH Medical History Anxiety Bipolar disorder Depression Sleep paralysis Home Medications Abilify 10/19/22 [History Last Taken Unknown] BuSpar 10/19/22 [History Last Taken Unknown] trazodone 10/19/22 [History Last Taken Unknown] doxycycline monohydrate 100 mg capsule 100 mg PO BID #20 CAPSULES 06/26/23 [Rx Last Taken Unknown] hydrocodone-acetaminophen 5-325mg 5mg-325mg 1 tab PO Q6H PRN PRN Pain 2 days #8 TABLETS 06/26/23 [Rx Last Taken Unknown] Allergy/AdvReac Type Severity Reaction Status Date / Time ketorolac [From Toradol] Allergy Anaphylaxis Verified 06/26/23 02:36 naproxen Allergy Anaphylaxis Verified 06/26/23 02:36 Social History (Updated 06/26/23 @ 03:[address] Ronal Bernard MD) household members: children Smoking Status: Current every day smoker tobacco type: cigarettes alcohol intake: current ROS ROS ED Constitutional Constitutional ED: Denies chills, fever(s), subjective, sweats or weight loss Eyes Eyes: Denies blurry vision, change in vision or diplopia ENT ENT ED: Denies ear pain, rhinorrhea or sore throat Cardiovascular Cardiovascular: Denies chest pain, orthopnea, palpitations, paroxysmal nocturnaldyspnea or racing heartbeat Respiratory/Chest Respiratory/Chest: Denies cough, dyspnea, dyspnea on exertion, orthopnea or paroxysmal nocturnal dyspnea Gastrointestinal Gastrointestinal: Reports abdominal pain and nausea; Denies constipation, diarrhea, melena or vomiting Genitourinary Genitourinary ED: Denies dysuria, hematuria or urinary frequency Musculoskeletal Musculoskeletal: Denies arthralgias, back pain or myalgias Integumentary Denies rash Psychiatric Psychiatric: Reports anxiety Endocrine Endocrinology: Denies cold intolerance or heat intolerance Hematologic/Lymphatic Hematologic/Lymphatic: Reports systems reviewed and no addt'l complaints, exceptas documented EXAM Physical Exam Const Vital Signs: 06/26/23 02:31 06/26/23 04:56 Temperature 97.8 F Temperature Source Temporal Pulse Rate 104 H 66 Respiratory Rate 18 16 Blood Pressure 115/86 H Blood Pressure Mean 95 Pulse Ox 99 Positive well nourished and well developed Constitutional Narrative: Patient is crying. General Appearance ED: well developed; Negative for cyanotic, diaphoretic or pallor HEENT Reports moist mucous membranes HEENT Narrative: Is atraumatic and normocephalic. Ears are normal. Nares are patent. Posteriorpharynx is normal. Eyes PERRL and EOMs intact bilaterally General Eye ED: Negative for pale conjunctiva or scleral icterus Neck no lymphadenopathy, supple and no JVD Resp normal respiratory effort and clear to auscultation bilaterally Cardio regular rate, regular rhythm, S1 normal heart sound, S2 normal heart sound and no murmurs GI normal to inspection, nondistended, normoactive bowel sounds and no masses; Negative for non-tender or hepatosplenomegaly Auscultation: hypoactive bowel sounds Palpation: soft and tender LLQ Narrative: External genitalia normal. Vaginal mucosa normal. Cervix is pink. There is a whitish frothy colored discharge noted. On bimanual exam there is no discomfortwith pressure against the bladder. She complained of pain with cervical motion. She did not have a chandelier sign. She had minimal discomfort left adnexa. There is no appreciable mass which may be difficult because of body habitus. Right adnexa was unremarkable. Of note patient had a simple 3.0 cm ovarian cystnoted on the left when she was seen a couple days ago. She had a CAT scan at that time. Patient states she has not had intercourse in a week. She states she did have pain when she had intercourse. The person is not a new partner. Because of theabnormal discharge will obtain urine for GC and chlamydia. We will treat with 10 days of doxycycline which will cover both chlamydia and GC as well as anaerobes. Back/Spine no CVA tenderness Thoracic Spine / Upper Back: Negative for thoracic spinal tenderness Lumbar Spine / Lower Back: Negative for lumbar spinal tenderness Extremity normal to inspection General Extremety ED: Negative for edema or tenderness General Extremity: Negative for edema Neuro oriented x3, CN's II-XII intact bilaterally and no sensory deficits noted Sensorium / Orientation: alert Motor Exam: strength 5/5 throughout Psych Mood & Affect: depressed and tearful Skin no rashes or lesions noted, no wounds and skin turgor normal General Skin Exam: Negative for jaundice or pallor MDM MDM MDM Narrative Medical decision making narrative: Diagnosis would be pain of unknown etiology, ruptured ovarian cyst, torsion. Will need to perform pelvic exam. Patient had labs inadvertently submitted thatshould have gone for another patient. Patient did not need a chest x-ray, EKG or troponin level. Need a pelvic exam. She did receive IV Toradol for her pain. Most recent ER visit report was read. She had extensive work-up. As previouslydocumented she was found to have a simple left ovarian cyst that measured 3.0 cm. This is not a common size detorsed. The most common size that results in torsion is 4 to 6 cm. Please review documentation under the portion of the medical record. Lab Data Attestation: I reviewed the patient's lab results. Lab results narrative: BC is normal. UA is normal. Labs: Laboratory Results - last 24 hr 06/26/23 06/26/23 02:54 03:00 WBC 10.5 RBC 4.10 L Hgb 13.6 Hct 40.0 MCV 97.6 MCH 33.2 H MCHC 34.0 RDW Std Deviation 43.0 RDW Coeff of Poonam 12.0 Plt Count 406 MPV 9.5 Immature Gran % (Auto) 0.600 Neut % (Auto) 66.6 Lymph % (Auto) 19.9 [place] % (Auto) 11.7 H Eos % (Auto) 0.7 Baso % (Auto) 0.5 Absolute Neuts (auto) 7.0 Absolute Lymphs (auto) 2.09 Nucleated RBC % 0 Sodium 139 Potassium 3.3 L Chloride 107 Carbon Dioxide 26.0 Anion Gap 6 BUN 14 Creatinine 0.76 Estim Creat Clear Calc 87.52 Est GFR (MDRD) Af Amer 110 Est GFR (MDRD) Non-Af 91 BUN/Creatinine Ratio 18.5 Glucose 98 Calcium 8.8 Troponin I High Sens 5 Urine Color Yellow Urine Clarity Clear Urine pH 6.0 Ur Specific [place] 1.010 Urine Protein Negative Urine Glucose (UA) Normal Urine Ketones 5 H Urine Occult Blood Negative Urine Nitrite Negative Urine Bilirubin Negative Urine Urobilinogen Normal Ur Leukocyte Esterase Negative Urine RBC 0 SEEN Urine WBC 0 SEEN Ur Squamous Epith Cells 0 SEEN Urine Bacteria 0 SEEN Urine Mucus 0 SEEN Radiography Diagnostic Testing: Clinical Impression(s) from Imaging Studies Chest X-Ray 06/26/23 02:47 IMPRESSION: No radiographic evidence of acute cardiopulmonary disease. Electronically Signed: Darren Wells MD at 3:19 EDT Reading Location ID and State: [facility] / [place] Tel , Service support , X-ray was intermittently ordered. I did not interpreted because it was not meant for the patient. Discharge Plan Triage Chief Complaint: Abd Pain ED Provider: Ronal Bernard Dx/Rx/DC Orders Clinical Impression: Vaginal discharge, Dyspareunia in female, Cyst of left ovary Instructions: ED Ovarian Cyst Prescriptions: New hydrocodone-acetaminophen [hydrocodone-acetaminophen] 5-325 mg tablet 1 tab PO Q6H PRN PRN (Reason: Pain) 2 Days Qty: 8 0RF doxycycline monohydrate 100 mg capsule 100 mg PO BID Qty: 20 0RF No Action Abilifbrianne Peña trazodone Primary Care Provider: Care Physician,No Primary Referrals: Care Physician,No Primary [Primary Care Provider] - Doctor,Your [Non-Staff] - 1 Week if not improving Activity Restrictions/Additional Instructions: If you have a temperature greater than 100, shaking chills, return to the emergency department. If you have unbearable pain contact your doctor or return to the emergency department Disposition Disposition: Home, Self Care What to do if you have Problems For any increased pain, shortness of breath, bleeding, nausea or vomiting, chestpain, or any unexpected problems, contact your Primary Care Provider. Call [facility] ([phone]) or report to the closest Emergency Room. Call 911 if necessary. 06/26/23726 <Electronically signed by Ronal Bernard MD> Cosigner Signature (if applicable): CC: No Primary Care Physician ~ Signed [facility] Work Phone: [phone]) 627-548109-01-2018 Evaluation note* Diagnosis History of right salpingo-oophorectomy 05/2018 for adnexal mass (benign, endometriosis)- Primary Endometriosis determined by laparoscopy Cyst of left ovary Other and unspecified ovarian cyst Pelvic pain in female Unspecified symptom associated with female genital organs Tobacco use disorder documented in this encounter [facility]09-01-2018 Evaluation note* Diagnosis History of right salpingo-oophorectomy 05/2018 for adnexal mass (benign, endometriosis) Cyst of left ovary Other and unspecified ovarian cyst Pelvic pain in female Unspecified symptom associated with female genital organs Endometriosis determined by laparoscopy [facility] Author Maurice Leon [facility] July 28, 2023 12:43am Note Date/Time July 28, 2023 1 2:35am [facility] Medical Records Department [address] [place] [address] Emergency Department Summary 07/28/23 MR#: [id number] Acct: [id number] Name: DELIA MERCHANT Rep #:[id number] : 1985 38 From: Maurice Leon DO PCP: Care Physician,No Primary Status :DEP ER Location: ED HPI History of Present Illness Chief Complaint: Abd Pain Informant: patient Narrative Narrative: Patient is a 38-year-old female with past medical history of anxiety and bipolardisorder. She states that today she developed generalized abdominal discomfort with bouts of vomiting. She states that her emesis appeared bloody in nature. She denies any history of bleeding disorder or blood thinner use. She states she does not take Motrin Advil or Aleve as she has an allergy to NSAIDs and she does not drink alcohol or excessive caffeine. She denies any history of ulcers. She denies any history of bleeding disorder or blood thinner use. She does admit to smoking. At this time based on her pain and reports of hematemesis shecomes in for evaluation [facility] Medical History Anxiety Bipolar disorder Depression Sleep paralysis Home Medications Abilify 10/19/22 [History Last Taken Unknown] BuSpar 10/19/22 [History Last Taken Unknown] trazodone 10/19/22 [History Last Taken Unknown] doxycycline monohydrate 100 mg capsule 100 mg PO BID #20 CAPSULES 06/26/23 [Rx Last Taken Unknown] hydrocodone-acetaminophen 5-325mg 5mg-325mg 1 tab PO Q6H PRN PRN Pain 2 days #8 TABLETS 06/26/23 [Rx Last Taken Unknown] ondansetron 4 mg disintegrating tablet 4 mg PO TID PRN nausea and vomiting #21 tabs 07/28/23 [Rx Last Taken Unknown] oxycodone-acetaminophen 5 mg-325 mg tablet (Percocet) 1 tab PO Q6H PRN pain 3 days #12 tabs 07/28/23 [Rx Last Taken Unknown] Allergy/AdvReac Type Severity Reaction Status Date / Time ketorolac [From Toradol] Allergy Anaphylaxis Verified 07/27/23 21:42 naproxen Allergy Anaphylaxis Verified 07/27/23 21:42 Social History household members: children Smoking Status: Current every day smoker tobacco type: cigarettes alcohol intake: current ROS ROS ED Constitutional Constitutional ED: Denies chills or fever(s) ENT ENT ED: Denies sore throat Cardiovascular Cardiovascular: Denies chest pain Respiratory/Chest Respiratory/Chest: Denies cough or dyspnea Gastrointestinal Gastrointestinal: Reports abdominal pain, nausea and vomiting; Denies diarrhea or melena Genitourinary Genitourinary ED: Denies dysuria Musculoskeletal Musculoskeletal: Denies myalgias Integumentary Denies rash Neurologic Neurologic: Denies headache(s) Hematologic/Lymphatic Hematologic/Lymphatic: Denies easy bleeding or easy bruising EXAM Physical Exam Const Vital Signs: 07/27/23 21:40 Temperature 98.3 F Temperature Source Temporal Pulse Rate 89 Respiratory Rate 18 Blood Pressure 92/59 L Blood Pressure Mean 70 Pulse Ox 100 Oxygen Delivery Method Room Air Positive well nourished and well developed General Appearance ED: well developed; Negative for pallor HEENT Reports moist mucous membranes HEENT Narrative: No dried blood or active bleeding noted in the posterior pharynx No signs of infection noted Eyes PERRL and EOMs intact bilaterally General Eye ED: Negative for pale conjunctiva Neck supple Neck Narrative: No nuchal rigidity or meningeal signs present No crepitance in the anterior neck and no pain with external manipulation of thethyroid cartilage Resp normal respiratory effort and clear to auscultation bilaterally Cardio regular rate and regular rhythm Rate: other Other Details: Heart is regular rate and rhythm without murmurs rubsor gallops Radial and carotid pulses are equal and symmetric GI non-distended GI Narrative: Abdomen is soft and nondistended with hypoactive bowel sounds. Patient has milddiffuse pain greatest in the left lower quadrant without voluntary guarding or rigidity. No pulsatile mass or fluid wave Auscultation: hypoactive bowel sounds Palpation: soft Narrative: External rectal exam shows no hemorrhoid or anal fissure. Rectal tone is normalthere are no internal masses palpated and stool is brown in color and Hemoccult negative. Extremity normal to inspection Neuro oriented x3 and CN's II-XII intact bilaterally Sensorium / Orientation: alert Psych mental status grossly normal Skin no rashes or lesions noted General Skin Exam: Negative for jaundice or pallor MDM MDM MDM Narrative Medical decision making narrative: Patient presented to the ER with a soft nonsurgical abdomen. With her report ofgeneralized pain and hematemesis I did elect to perform basic laboratory studies. Patient's white count is elevated at 16 but lactic acid is normal she does not have signs of acute kidney injury or electrolyte derangement her hemoglobin and platelets are normal and her BUN is also normal going against a upper GI bleed. However based on the elevated white count I did elect perform aCT scan with IV contrast. This showed a left ovarian cyst similar nature/slightly smaller to the previous CAT scan from the end of May. Thepatient's had no bouts of vomiting while in the ER. Her vitals are stable. Therefore at this time as patient is not anemic showing acute kidney injury or signs of internal bleeding there is no need for further work-up and she is otherwise safe for discharge. History & Record Review Discussion w/independent historian: Patient Lab Data Attestation: I reviewed the patient's lab results. Labs: Laboratory Results - last 24 hr 07/27/23 07/27/23 07/27/23 21:58 22:06 22:45 WBC 16.0 H RBC 4.23 Hgb 14.1 Hct 42.4 MCV 100.2 H MCH 33.3 H MCHC 33.3 RDW Std Deviation 45.2 H RDW Coeff of P[place]am 12.3 Plt Count 325 MPV 9.9 Immature Gran % (Auto) 1.200 H Neut % (Auto) 74.3 H Lymph % (Auto) 14.9 L [place] % (Auto) 8.6 Eos % (Auto) 0.6 Baso % (Auto) 0.4 Absolute Neuts (auto) 11.9 H Absolute Lymphs (auto) 2.38 Nucleated RBC % 0 Sodium 142 Potassium 3.8 Chloride 108 H Carbon Dioxide 29.0 Anion Gap 5 BUN 13 Creatinine 0.82 Estim Creat Clear Calc 81.11 Est GFR (MDRD) Af Amer 101 Est GFR (MDRD) Non-Af 83 BUN/Creatinine Ratio 15.9 Glucose 93 Lactic Acid 0.8 Calcium 9.0 Total Bilirubin 0.10 L AST 20 ALT 36 Alkaline Phosphatase 96 Total Protein 7.4 Albumin 3.7 Globulin 3.7 Albumin/Globulin Ratio 1.0 Lipase 74 Serum , Qual NEGATIVE Urine Color Yellow Urine Clarity Clear Urine pH 7.0 Ur Specific [place] 1.015 Urine Protein 15 H Urine Glucose (UA) Normal Urine Ketones Negative Urine Occult Blood 250 H Urine Nitrite Negative Urine Bilirubin Negative Urine Urobilinogen Normal Ur Leukocyte Esterase 100 H Urine RBC 10-25 SEEN Urine WBC 0-5 SEEN Ur Squamous Epith Cells 5-10 SEEN Urine Bacteria 0 SEEN Urine Mucus 0 SEEN Radiography Diagnostic Testing: Clinical Impression(s) from Imaging Studies Abdomen/Pelvis CT 07/27/23 23:35 IMPRESSION: Bilateral ovarian cysts or follicles more numerous on the left, largest is less than 3 cm. Pelvic ultrasound correlation may be helpful if clinically indicated. No other acute findings. Electronically Signed: Devorah Trujillo MD at 0:13 EDT , Discharge Plan Triage Chief Complaint: Abd Pain ED Provider: Maurice Leon Dx/Rx/DC Orders Clinical Impression: Ovarian cyst, Nausea & vomiting Instructions: ED Ovarian Cyst, ED Vomiting (Adult) Prescriptions: New ondansetron 4 mg tablet,disintegrating 4 mg PO TID PRN (Reason: nausea and vomiting) Qty: 21 0RF oxycodone-acetaminophen [Percocet] 5-325 mg tablet 1 tab PO Q6H PRN (Reason: pain) 3 Days Qty: 12 0RF No Action Abilify BuSpar trazodone hydrocodone-acetaminophen [hydrocodone-acetaminophen] 5-325 mg tablet 1 tab PO Q6H PRN PRN (Reason: Pain) 2 Days Qty: 8 0RF doxycycline monohydrate 100 mg capsule 100 mg PO BID Qty: 20 0RF Primary Care Provider: Care Physician,No Primary Referrals: Tracie Houston DO [Med Staff - Active Staff] - Care Physician,No Primary [Primary Care Provider] - Activity Restrictions/Additional Instructions: Your CT scan showed a persistent ovarian cyst on the left secondary to this follow-up with APPLICATION SYSTEMS ARCHITECT for repeat evaluation and return to the ER should you haveany further concerns Disposition Disposition: Home, Self Care What to do if you have Problems For any increased pain, shortness of breath, bleeding, nausea or vomiting, chestpain, or any unexpected problems, contact your Primary Care Provider. Call [facility] ([phone]) or report to the closest Emergency Room. Call 911 if necessary. 07/28/23 0043 <Electronically signed by Maurice Leon DO> Cosigner Signature (if applicable): CC: No Primary Care Physician ~ Signed [facility] Work Phone: Evaluation noteNo assessment information available [facility] Work Phone: Evaluation note* Diagnosis Treatment not available- Primary Procedure not carried out for other reasons documented in this encounter [facility] Additional Instructions You have a UTI with possible early kidney infection. It is very important that you drink lots of fluids and take your entire course of antibiotics. Return to the ER if you develop progression of symptoms, nausea, fever especially after 2 days of antibiotics. You have been prescribed a medicine that will help with the urinary symptoms. You may also take Tylenol as needed for pain.[facility] Work Phone: Hospital Discharge instructions Additional Instructions Please take your medication as directed to help resolve your UTI/kidney infection. Because of your left ovarian cyst follow-up with APPLICATION SYSTEMS ARCHITECT to discuss repeat evaluation and return to the ER should you have any further concerns or worsening of [facility]WFire[facility] Work Phone: Hospital Discharge instructions Additional Instructions If you have a temperature greater than 100, shaking chills, return to the emergency department. If you have unbearable pain contact your doctor or return to the emergency departmentW[facility] Work Phone: Hospital Discharge instructions Additional Instructions Your CT scan showed a persistent ovarian cyst on the left secondary to this follow-up with APPLICATION SYSTEMS ARCHITECT for repeat evaluation and return to the ER should you have any further concerns [facility] Work Phone: Hospital Discharge instructions Additional Instructions Plenty of fluids and rest. Zofran as needed for nausea. Follow-up with a local APPLICATION SYSTEMS ARCHITECT for your ovarian cyst if not improving. Motrin and Tylenol for pain.[facility] Work Phone: Hospital Discharge instructions Additional Instructions Thank you for trusting us with your care today! Please take Tylenol (2 pills, 650 mg), ibuprofen (2 pills, 400 mg) every 6 hours as needed for pain and fever control. Please return to the emergency department if your symptoms change or worsen. Please follow with your primary care physician for further outpatient evaluation and management.[facility] Work Phone: Hospital Discharge instructions Additional Instructions Follow-up with dentist. Ibuprofen and Tylenol as needed for pain. Ice. Orajel. Continue to brush her teeth. Take your second dose of antibiotics this evening as you received your first dose here.[facility] Work Phone: Reason for referral (narrative)No reason for referral information availableWooK[facility] Work Phone: Summary Purpose Family History No Family History Records FoundNo Family History Records FoundNo Family History Records FoundNo Family History Records FoundNo Family History Records FoundNo Family History Records Found Advance Directives No Advanced Directives Records Found Advance Directive Response Recorded Date/ Time Living Will No October 19 2:36am Power of Vice President Of Compliance No October 19, 2022 2:36am Advance Directive Response Recorded Date/ Time Living Will No June 20, 2023 9:59pm Power of Vice President Of Compliance No May 9:59pm Advance Directive Response Recorded Date/ Time Living Will No June 26 2:36am Power of Vice President Of Compliance No June 26 023 2:36am Advance Directive Response Recorded Date/ Time Living Will No July 27 10:16pm Power of Vice President Of Compliance No July 27, 2023 10:16pm Documents on File Type Date Recorded Patient Continuous Absorption Process Operator Expl anation Advance Directive(s) 06/14/2018 9:00 PM Advance Directive Response Recorded Date/ Time Living Will No August 07 023 11:14am Power of Vice President Of Compliance No August 07, 2023 11:14am Documents on File Type Date Recorded Patient Continuous Absorption Process Operator Expl anation Advance Directive(s) 06/14/2018 9:00 PM Advance Directive Response Recorded Date/ Time Living Will No August 13, 023 5:43pm Power of Vice President Of Compliance No August 13, 2023 5:43pm Advance Directive Response Recorded Date/ Time Living Will No December 04, 2023 2:24am Power of Vice President Of Compliance No December 03 2:24am Advance Directive Response Recorded Date/ Time Living Will No December 15, 2024 1:22am Do you have a Healthcare Power of Vice President Of Compliance? No December 15, 2024 1:22am Chief Complaint and Reason for Visit Chief Complaint back pain Chief Complaint ABD PAIN Chief Complaint ABD PAIN RLQ PAIN Chief Complaint ABD PAIN RLQ PAIN ABDOMINAL PAIN Chief Complaint ABD PAIN RLQ PAIN ABDOMINAL PAIN chest pain Chief Complaint ABD PAIN RLQ PAIN ABDOMINAL PAIN chest pain abd pain Chief Complaint chest pain abd pain ABD PAIN Chief Complaint Admit Date DENTAL PAIN December 15, 2024 1:1 8am Reason for Referral Specialty Diagnoses / Procedures Referred By Contac t Referred To Contact Diagnoses History of right salpingo-oophorectomy Cyst of left ovary Endometriosis determined by laparoscopy Pelvic pain in female Procedures CONSULT TO MINIMALLY INVASIVE GYNECOLOGIC SURGERY OFFICE/OUTPATIENT [facility] 60-74 MINUTES Jacqueline Arias, PASTORA.CREDIT RISK MODELER [address] [place] [address] Referral ID Status Reason Start Date Expiration Date Visits Requested Visits Authorized [id number] Authorized PCP Requested Referral Auto-Generate d Referral 3 08/09/2024 1 1 Specialty Diagnoses / Procedures Referred By Vincent prakash Referred To Contact [facility] Diagnoses History of right salpingo-oophorectomy Cyst of left ovary Endometriosis determined by laparoscopy Pelvic pain in female Procedures PELVIC US I US PELVIC NONOBSTETRIC REAL-TIME IMAGE COMPLETE Jacqueline Arias, PASTORA.CREDIT RISK MODELER [address] [place] [address] [facility] [address] [place] [address] Referral ID Status Reason Start Date Expiration Date Visits Requested Visits Authorized [id number] Pending Review Auto-Generat ed Referral 3 08/09/2024 1 1 Additional Source Comments INFORMATION SOURCE (unrecogn ized section and content) DATE CREATED AUTHOR 07/09/2018 [facility] DATE CREATED AUTHOR AUTHOR'S ORGANIZ ATION 10/17/2018 [facility] DATE CREATED AUTHOR AUTHOR'S ORGANIZ ATION 01/07/2023 [facility] DATE CREATED AUTHOR AUTHOR'S ORGANIZ ATION 12/03/2023 [facility] DATE CREATED AUTHOR AUTHOR'S ORGANIZ ATION 02/15/2024 [facility] DATE CREATED AUTHOR AUTHOR'S ORGANIZ ATION 12/25/2024 [facility] Care Teams (unrecognized sec tion and content) Team Status: Active Member Role Status Dates Katy Pedroza [employer]ING [employer]ACH[employer]PERAT[employer], [employer]PER[employer]-C Primary Care Provider Active Team Status: Inactive Member Role Status Dates Katy Pedroza [employer], [employer]-C Primary Care Provider Active Dr. Kizzy Grady DO Emergency Provider Active Team Status: Active Member Role Status Dates No Primary Care Physician Primary Care Provider Active Team Status: Inactive Member Role Status Dates Dr. Maurice Leon DO Emergency Provider Active No Primary Care Physician Primary Care Provider Active Team Status: Inactive Member Role Status Dates Dr. Maurice Leon DO Attending Provider, Emergency Pr ovider Active No Primary Care Physician Primary Care Provider Active Team Status: Inactive Member Role Status Dates No Primary Care Physician Primary Care Provider Active Dr. Ronal Bernard MD Emergency Provider Active Team Status: Inactive Member Role Status Dates No Primary Care Physician Primary Care Provider Active Dr. Ronal Bernard MD Attending Provider, Emergency Provi willis Active Team Status: Inactive Member Role Status Dates No Primary Care Physician Primary Care Provider Active Dr. Maurice Leon DO Emergency Provider Active Product Consultant Relationship Specialty Start Date End Date Vanessa Garcia MD [address] [place] [phone] PCP - General Family Medicine 06/11/18 Team Status: Inactive Member Role Status Dates No Primary Care Physician Primary Care Provider Active Dr. Maurice Leon DO Attending Provider, Emergency Pr ovider Active Team Status: Inactive Member Role Status Dates No Primary Care Physician Primary Care Provider Active Dr. Tracie Rai MD Emergency Provider Active Product Consultant Relationship Specialty Start Date End Date Vanessa Garcia MD [address] [place] [phone] PCP - General Family Medicine 06/11/18 Team Status: Inactive Member Role Status Dates No Primary Care Physician Primary Care Provider Active Dr. Tracie Rai MD Attending Provider, Emergency Provider Active Team Status: Inactive Member Role Status Dates No Primary Care Physician Primary Care Provider Active Dr. Aníbal Minaya MD Emergency Provider Active Product Consultant Relationship Specialty Start Date End Date Vanessa Garcia MD [address] [place] [phone] PCP - General Family Medicine 06/11/18 Team Status: Inactive Member Role Status Dates No Primary Care Physician Primary Care Provider Active Dr. Aníbal Minaya MD Attending Provider, Emergency Pro vider Active Team Status: Inactive Member Role Status Dates No Primary Care Physician Primary Care Provider Active Dr. Wilfrid Dhaliwal , Emergency Provider Active Team Status: Inactive Member Role Status Dates No Primary Care Physician Primary Care Provider Active Start: December 15, 2024 End: December 15, 2024 Dr. Spenser Lamb , Emergency Provider Activ e Start: December 15, 2024 End: December 15, 2024 Goals (unrecognized section and content) Goals may be documented in a n alternate sectionGoals may be documented in an alternate sectionGoals may be documented in an alternate sectionGoals may be documented in an alternate sectionGoals may be documented in an alternate sectionGoals may be documented in an alternate sectionGoals may be documented in an alternate sectionGoals may be documented in an alternate section Source Comments (unrecognize d section and content) In the event this informatio n is protected by the Federal Confidentiality of Alcohol and Drug Abuse Patient Records regulations: The Federal rules restrict any use of the information to criminally investigate or prosecute any alcohol or drug abuse patient.[facility] the event this information is protected by the Federal Confidentiality of Alcohol and Drug Abuse Patient Records regulations: The Federal rules restrict any use of the information to criminally investigate or prosecute any alcohol or drug abuse patient.[facility] Hospital[facility] the event this information is protected by the Federal Confidentiality of Alcohol and Drug Abuse Patient Records regulations: The Federal rules restrict any use of the information to criminally investigate or prosecute any alcohol or drug abuse patient.[facility] Reason for Visit (unrecogniz ed section and content) Reason Comments Back Pain Reason Comments Pelvic Pain Reason Onset Date Comments Refill Request 08/21/2023 FOR RECORDS PERTAINING TO PATIENTS WHO ARE [...] BE BASED ON THE PRIMARY CLINICAL RECORDS. [employer] [facility]. provides no warranty or guarantee of the accuracy or completeness of information in this document.
[2025-03-10 22:31] LABS: Anion Gap 13 (5-15); BUN 20 mg/dL (4-19); BUN/Creat Ratio 24.4 RATIO (10-20); Calcium,Total 9.5 mg/dL (7.6-11.0); Carbon Dioxide 20.9 mmol/L (21.0-32.0); Chloride 105 mmol/L (98-108); Creatinine, Serum 0.82 mg/dL (0.70-1.20); EST Glomerular Filtration Rate 93 (>60); Estimated Creatinine Clearance 87.45 ml/min (50-250); Glucose 90 mg/dL (70-99); Potassium 3.8 mmol/L (3.3-5.1); Sodium Level 139 mmol/L (133-145)
[2025-03-10 22:36] LABS: Color, Urine Yellow (Yellow); Glucose, Dipstick Normal (Normal); Ketone-Dipstick Negative (Negative); Leukocyte Esterase-Dipstick 25 /ul (Negative); Nitrite-Dipstick Negative (Negative); Occult Blood-Urine 250 /ul (Negative); Protein-Dipstick 30 mg/dl (Negative); Specific Gravity, Urine 1.015 (1.002-1.030); Urine Bilirubin Dipstick Negative (Negative); Urine Clarity Sl. Cloudy (Clear); Urine Urobilinogen Normal (Normal)
[2025-03-10] MEDS: Ondansetron 4 MG/2 ML Vial IV (22:42)
[2025-03-10 22:44] VITALS: BP 108/60; PULSE 86; RESP 19; O2SAT 97
[2025-03-10 22:59] LABS: Internal QC Validated? YES +Cl - CLEAR BKGD; Pregnancy, Serum, hCG Quali. NEGATIVE Negative
[2025-03-10 23:07] LABS: Troponin T High Sens 2 HR < 6 ng/L (<=14)
[2025-03-10 23:30] LABS: Bacteria 2+ /hpf (None Seen); Mucous, Urine RARE /hpf (<or=2+); Red Blood Cells-Urine 0-5 SEEN /hpf (0-5); Squamous Epithelial Cells - UA 50-100 SEEN /hpf (5-10); White Blood Cells 10-25 SEEN /hpf (0-5)
[2025-03-11] VITALS: BP 91/62; PULSE 79; RESP 16; O2SAT 100
[2025-03-11 01:00] VITALS: PULSE 78; RESP 18; O2SAT 100
[2025-03-11 01:32] VITALS: PULSE 86; RESP 18; O2SAT 98
== END 2025-03-11 01:35 | disposition home or self-care (01) ==
PROVIDERS: Emergency Provider Emergency Medicine; Visit Provider Emergency Medicine
DX: R07.89 Other chest pain (principal); F31.9 Bipolar disorder, unspecified; R11.0 Nausea; F42.9 Obsessive-compulsive disorder, unspecified; F41.9 Anxiety disorder, unspecified; F17.200 Nicotine dependence, unspecified, uncomplicated; Z90.49 Acquired absence of other specified parts of digestive tract; Z79.899 Other long term (current) drug therapy
CPT/HCPCS: 71045; 80048; 81001; 84484; 84703; 85025; 93005; 96374; 99285; A4216; J2405

== ENCOUNTER → 2025-04-17 | Outpatient (CLI) | payer MEDICAID, SELFPAY ==
[2025-04-17 16:45] LABS: Hematocrit 40.9 % (37-47); Hemoglobin 14.0 g/dL (12.0-15.0); Immature Granulocytes Count 0.100 X10^3/uL (0.0-0.0); Mean Corp Hgb Conc 34.2 g/dL (32-36); Mean Corpuscular Volume 97.8 fL (81-99); Mean Platelet Vol. 10.1 fl (6.2-12.0); NRBC Flagged by Analyzer 0 % (0-5); Platelet Count 366 K/mm3 (150-450); RBC Distribution Width CV 12.3 % (11.6-14.6); RBC Distribution Width SD 44.1 fl (35.1-43.9); Red Blood Count 4.18 M/mm3 (4.2-5.4); White Blood Count 11.6 K/mm3 (4.4-11.0)
[2025-04-17 17:29] LABS: Prothrombin Time (Protime)PT. 12.9 SECONDS (11.7-14.9)
[2025-04-17 18:18] LABS: AST(SGOT) 27 U/L (<=31); Alanine Aminotransfer ALT/SGPT 31 U/L (<=34); Albumin, Serum 4.2 g/dL (3.5-5.0); Alkaline Phosphatase 99 U/L (35-104); Anion Gap 14 (5-15); BUN 16 mg/dL (4-19); BUN/Creat Ratio 20.2 RATIO (10-20); Calcium,Total 9.7 mg/dL (7.6-11.0); Carbon Dioxide 21.4 mmol/L (21.0-32.0); Chloride 103 mmol/L (98-108); Globulin 3.6 g/dL (2.2-4.2); Glucose 78 mg/dL (70-99); HIV Nonreactive (Nonreactive); Hepatitis B Surface Antigen Nonreactive (Nonreactive); Potassium 4.0 mmol/L (3.3-5.1)
[2025-04-19 22:07] LABS: HCV Quant. RNA PCR See Final Results IU/mL (.); HCV RNA-PCR, QUANT 17000000 IU/mL (.)
== END | disposition home or self-care (01) ==
LOC: LAB 15:31
PROVIDERS: Referring Provider Family Medicine; Visit Provider Family Medicine
DX: B18.2 Chronic viral hepatitis C (principal)
CPT/HCPCS: 36415; 80053; 85025; 85610; 86703; 86706; 86708; 87340; 87522

== ENCOUNTER → 2025-05-17 | Outpatient (CLI) | payer MEDICAID, SELFPAY | END | disposition home or self-care (01) | LOC: LAB 13:50 | PROVIDERS: Referring Provider Family Medicine; Visit Provider Family Medicine | DX: B18.2 Chronic viral hepatitis C (principal) | CPT/HCPCS: 87902 ==

== ENCOUNTER → 2025-07-17 | Outpatient (CLI) | payer MEDICAID, SELFPAY ==
[2025-07-23 11:09] LABS: HPV APTIMA, High Risk Negative (Negative)
== END | disposition home or self-care (01) ==
LOC: VSLAB 11:26
PROVIDERS: PCP Nurse Practitioner Family; Visit Provider Nurse Practitioner Family
DX: Z12.4 Encounter for screening for malignant neoplasm of cervix (principal)
CPT/HCPCS: 87624; 88175; G0145

== ENCOUNTER → 2025-08-19 | Outpatient (CLI) | payer MEDICAID, SELFPAY | END | disposition home or self-care (01) | LOC: LAB 12:36 | PROVIDERS: PCP Nurse Practitioner Family; Referring Provider Family Medicine; Visit Provider Family Medicine | DX: B18.2 Chronic viral hepatitis C (principal) | CPT/HCPCS: 36415; 87522 ==